=== PATIENT | female | born 1945 | race American Indian/Alaskan Native ===

== ENCOUNTER 2016-09-25 19:52 | Inpatient (IN) | payer MEDICARE ==
[2016-09-25] MEDS ORDERED: CATAPRES PO ONE ×2 (20:53→22:34)
[2016-09-25 20:54] LABS: Basophils % (Auto) 0.5 % (0.0-1.8); Eosinophils % (Auto) 1.9 % (0.0-4.3); Hemoglobin 13.3 gm/dl (10.1-14.3); Mean Corpuscular HGB Conc 32 % (30-34); Mean Corpuscular Hemoglobin 27 pg (28-32); Mean Corpuscular Volume 83 fl (79-97); Platelet Count 198 K/mm3 (140-440); Red Blood Count 4.93 M/mm3 (3.65-5.03); Red Cell Distribution Width 14.9 % (13.2-15.2); White Blood Count 8.3 K/mm3 (4.5-11.0)
--- NOTE | 2016-09-25 20:57 | Emergency Department Report ---
ED Dizziness HPI - General Chief Complaint: High BP Stated Complaint: HIGH BP Time Seen by Provider: 09/25/16 20:48 Source: patient Mode of arrival: Ambulatory Limitations: No Limitations - History of Present Illness Initial Comments: Patient stated that she is having dizziness that started yesterday she forget how her blood pressure medicine for the last 4 days since she went for vacation in [place]. Denies any focal weakness no numbness or tingling sensation of slight headache no bowel or bladder dysfunction Complaint: dizziness -: Gradual Timing: gradual onset - Related Data Home Medications Medication Instructions Recorded Confirmed Last Taken Unobtainable 09/25/16 09/25/16 Unknown Allergies Allergy/AdvReac Type Severity Reaction Status Date / Time No Known Allergies Allergy Verified 09/25/16 20:06 ED Review of Systems ROS: Stated complaint: HIGH BP Other details as noted in HPI Comment: All other systems reviewed and negative Constitutional: denies: chills, fever Eyes: denies: vision change Respiratory: denies: shortness of breath, SOB with exertion Cardiovascular: denies: chest pain, palpitations Gastrointestinal: denies: nausea, vomiting Musculoskeletal: denies: back pain Neurological: headache. denies: weakness, numbness, paresthesias, confusion ED Past Medical Hx - Past Medical History Previous Medical History?: Yes Hx Hypertension: Yes Additional medical history: Bladder Incontinence at night - Surgical History Past Surgical History?: No - Social History Smoking Status: Never Smoker Substance Use Type: None - Medications Home Medications: Home Medications Medication Instructions Recorded Confirmed Last Taken Type Unobtainable 09/25/16 09/25/16 Unknown History ED Physical Exam - General Limitations: No Limitations General appearance: alert - Head Head exam: Present: atraumatic, normocephalic, normal inspection - Eye Eye exam: Present: normal appearance, PERRL, EOMI Pupils: Present: normal accommodation - ENT ENT exam: Present: normal exam, normal orophraynx - Neck Neck exam: Present: normal inspection. Absent: tenderness, meningismus, full ROM - Respiratory Respiratory exam: Present: normal lung sounds bilaterally. Absent: wheezes, rales, decreased breath sounds - Cardiovascular Cardiovascular Exam: Present: regular rate, normal rhythm, normal heart sounds - GI/Abdominal GI/Abdominal exam: Present: soft. Absent: distended, tenderness, guarding, rebound - Back Exam Back exam: Absent: CVA tenderness (R), CVA tenderness (L) - Neurological Exam Neurological exam: Present: alert, oriented X3, CN II-XII intact - Skin Skin exam: Present: warm, intact ED Course Vital Signs 09/25/16 09/25/16 09/25/16 20:00 20:40 20:51 Temperature 98.5 F Pulse Rate 94 H 89 Respiratory 20 11 L Rate Blood Pressure 157/90 Blood Pressure 217/132 [Right] O2 Sat by Pulse 100 97 98 Oximetry 09/25/16 09/25/16 09/25/16 21:00 21:01 21:10 Temperature Pulse Rate 87 89 89 Respiratory 13 15 Rate Blood Pressure 164/98 189/107 164/98 Blood Pressure [Right] O2 Sat by Pulse 98 98 Oximetry 09/25/16 09/25/16 09/25/16 21:34 21:41 21:51 Temperature Pulse Rate 72 76 Respiratory 16 14 13 Rate Blood Pressure 164/98 164/98 177/102 Blood Pressure [Right] O2 Sat by Pulse 98 96 99 Oximetry 09/25/16 09/25/16 09/25/16 22:00 22:11 22:21 Temperature Pulse Rate 80 74 72 Respiratory 14 20 19 Rate Blood Pressure 166/92 164/98 180/87 Blood Pressure [Right] O2 Sat by Pulse 93 95 Oximetry 09/25/16 09/25/16 09/25/16 22:30 22:41 22:51 Temperature Pulse Rate 77 73 74 Respiratory 17 17 9 L Rate Blood Pressure 157/96 180/87 175/95 Blood Pressure [Right] O2 Sat by Pulse 98 95 94 Oximetry 09/25/16 09/25/16 09/25/16 23:00 23:11 23:21 Temperature Pulse Rate 72 71 67 Respiratory 19 16 13 Rate Blood Pressure 157/88 157/88 164/95 Blood Pressure [Right] O2 Sat by Pulse 96 97 Oximetry 09/25/16 09/25/16 09/25/16 23:30 23:41 23:51 Temperature Pulse Rate 109 H 83 40 L Respiratory 19 19 16 Rate Blood Pressure 154/90 154/90 134/81 Blood Pressure [Right] O2 Sat by Pulse 95 93 97 Oximetry - Reevaluation(s) Reevaluation #1: 09/26/16 00:24 Patient developed significant bradycardia with a low blood pressure 100/60. Patient is still denying any chest pain became diaphoretic and has one episode of vomiting. Reevaluation #2: 09/26/16 00:[address] Angy Regalado for admission ED Medical Decision Making - Lab Data Result diagrams: 09/25/16 20:32 09/25/16 20:32 Critical care attestation.: If time is entered above; I have spent that time in minutes in the direct care of this critically ill patient, excluding procedure time. ED Disposition Clinical Impression: Symptomatic bradycardia Disposition: DC- OP ADMIT IP TO THIS HOSP Is pt being admited?: Yes Does the pt Need Aspirin: No Condition: Stable
[2016-09-25 21:05] LABS: INR 0.95 (0.87-1.13)
[2016-09-25 21:06] LABS: Partial Thromboplastin Time 30.6 Sec. (24.2-36.6)
[2016-09-25 21:08] LABS: Anion Gap 19 mmol/L; BUN/Creatinine Ratio 11.81; Blood Urea Nitrogen 13 mg/dL (7-17); Calcium 9.5 mg/dL (8.4-10.2); Carbon Dioxide 23 mmol/L (22-30); Chloride 101.7 mmol/L (98-107); Glucose 116 mg/dL (65-100); Potassium 3.8 mmol/L (3.6-5.0); Sodium 140 mmol/L (137-145)
--- NOTE | 2016-09-25 21:57 | Cat Scan Report ---
FINAL REPORT EXAM: CT HEAD/BRAIN WO CON HISTORY: AMS TECHNIQUE: CT imaging is acquired through the brain without contrast. Transaxial reformations are provided. PRIORS: None. FINDINGS: Ventricles and CSF spaces are proportionately enlarged, consistent with parenchymal atrophy. Scattered deep and subcortical white matter hypodense foci are confluent in some areas and are compatible with microvascular angiopathy and prior left periventricular infarct. No acute intracranial hemorrhage or mass effect. Calvarium and superficial scalp are intact. Right sphenoid ethmoidal mucosal thickening and sinus wall thickening. Mastoid air cells are clear. Likely cerumen in the right external auditory canal. IMPRESSION: No acute intracranial abnormality. Consider MRI follow-up as warranted. There are chronic sequela of atrophy, remote probable infarct and microvascular angiopathy.
[2016-09-26] MEDS ORDERED: ZOFRAN ONE (00:04)
[2016-09-26] MEDS ORDERED: ZOFRAN IV ONE (00:05)
[2016-09-26] MEDS ORDERED: NACL 0.9% 500 ML 500 ML ONE (00:12)
[2016-09-26] MEDS ORDERED: NACL 0.9% 500 ML 500 ML IV ONE (00:13)
[2016-09-26] MEDS ORDERED: NACL 0.9% 1000 ML 1,000 ML IV ONE (00:25)
--- NOTE | 2016-09-26 01:45 | Admit Criteria Form ---
Admission Criteria Documentation: CARDIOLOGY GRG Clinical Indications for Admission to Inpatient Care ( Place 'X' for any and all applicable criteria): Hospital admission is needed for appropriate care of the patient because of ANY ONE of the following (1): [ ] I. Hemodynamic instability as indicated by ALL of the following (1)(2)(3) (4)(5) [ ]a) Vital signs or other findings not as expected for chronic patient condition or baseline [ ]b) Instability indicated by ANY ONE of the following: [ ]i) Hypotension [ ]ii) Symptomatic Tachycardia unresponsive to treatment ( e.g., analgesia, fluids, sedation as indicated) [ ]iii) Inadequate perfusion indicated by ANY ONE of the following: [ ] 1) Lactic acidosis (> 2 mmol/L) [ ] 2) New abnormal capillary refill (> 3 seconds) [ ] 3) Reduced urine output [ ] 4) New altered mental status [ ]iv) Orthostatic vital sign changes unresponsive to treatment (e.g., fluids) [ ]v) IV inotropic or vasopressor medication required to maintain adequate blood pressure or perfusion [ ] II. Severe heart failure as indicated by ANY ONE of the following(17)(18) [ ]a) Respiratory distress [ ]b) Hypotension [ ]c) Anasarca (refractory to outpatient therapy) [ ]d) Cardiac arrhythmias of immediate concern [ ]e) Myocardial ischemia [ X] III. Cardiac arrhythmias or findings of immediate concern indicated by ANY ONE of the following (19)(20): [ ] a) Heart rhythms that are inherently dangerous or unstable indicated by ANY ONE of the following (21)(22)(23): [ ] i) Resuscitated ventricular fibrillation or cardiac arrest [ ] ii) Ventricular escape rhythm [ ] iii) Sustained ventricular tachycardia (30 seconds or more of ventricular rhythm at greater than 100 beats per minute) [ ] iv) Nonsustained ventricular tachycardia and ANY ONE of the following: [ ] 1) Suspected cardiac ischemia as cause or consequence of ventricular tachycardia [ ] 2) In setting of acute myocarditis [ ] b) Unstable cardiac conduction defects indicated by ANY ONE of the following(23)(24)(25) [ ] i) Type II second-degree atrioventricular block [ ]ii) Third-degree atrioventricular block [ ]iii) New-onset left bundle branch block with suspected myocardial ischemia [ ]c) Any heart rhythm and ANY ONE of the following (21)(22)(26)(27) (28) [ ] i) Continuous long-term ECG monitoring needed (e.g., initiation of drug requiring monitoring for more than 24 hours) [ ] ii) Patient has automatic implanted cardioverter defibrillator that is repeatedly firing, malfunctioning, or in need of immediate adjustment of settings beyond the scope of ambulatory or observation care [X ]d) Heart rhythms of concern due to ANY ONE of the following: [ ] i) Hypotension [ ] ii) Respiratory distress [X ] iii) Association with other significant symptoms (e.g. , bradycardia with syncope or ongoing dizziness, supraventricular tachycardia with chest pain (14)(15)(17) [ ] IV. Monitoring for cardiac contusion beyond the scope of observation care needed [A](30)(31)(32) [ ] V. Surgical or device complication (e.g., valve replacement complication , pacemaker dysfunction) (35)(41)(44)(45)(46) [ ] . Inpatient palliative care needed. [B](49) Also use Inpatient Palliative Care Criteria [ ] VII. Nonbacterial thrombotic (marantic) endocarditis (36)(43)(47)(48) [ ] VIII. Cardiology condition, symptom, or finding for which emergency and observation care has failed or are not considered appropriate. [ ] IX. Acute valvular disease requiring inpatient as indicated by ANY ONE of the following (41) [ ]a) Acute valvular regurgitation (42) [ ]b) Noninfectious valvulitis (43) [ ]c) Obstructive valve thrombosis [ ]d) Paravalvular leak [ ]e) Other significant valvular disorder remaining after emergency or observation level of care (as appropriate) [ ]X. Pericardial disease requiring inpatient treatment as indicated by ANY ONE of the following (33)(34)(35)(36)(37) [ ]a) Suspected tamponade (38)(39)(40) [ ]b) Hemopericardium [ ]c) Other significant pericardial disorder remaining after emergency or observation level of care (as appropriate) [ ] XI. Cardiac ischemia beyond scope of emergency and observation care. [ ] XII. Hypertension requiring inpatient treatment as indicated by ANY ONE of the following (6)(7)(8) [ ]a) SBP greater than 220 mm Hg or DBP greater than 120 mmHg despite treatment [ ]b) SBP greater than 140 mm Hg or DBP greater than 100 mm Hg with evidence of acute end organ damage as indicated by ANY ONE of the following [ ] i) Altered mental status [ ] ii) Acute renal failure as indicated by new onset of ANY ONE of the following (9)(10)(11)(12)(13) [ ]1) 3-fold rise in serum creatinine from baseline [ ]2) Serum creatinine greater than 4 mg/dL ( 354 micromoles/L) with acute rise greater than 0.5 mg/dL (44.2 micromoles/L) [ ]3) Reduction of more than 75% in estimated glomerular filtration rate from baseline [ ]4) Estimated glomerular filtration rate less than 35 mL/min/1.73m2 (0.59 mL/sec/1.73m2) in child up to 18 years of age [ ]5) Cessation of urine output indicated by ALL of the following [ ]A. Adequate volume status [ ]B. Inadequate urine output as indicated by ANY ONE of the following [ ]a. Urine output less than 0.3 mL/kg/hr for 24 hours [ ]b. Anuria (urine output less than 0.1 mL/kg/hr) for 12 hours [ ] iii) Aortic dissection [ ] iv) Myocardial Ischemia [ ] v) Left ventricular heart failure [ ]vi) Retinal Hemorrhage [ ]vii) Other significant finding [ ]c) Hypertension in child requiring inpatient treatment as indicated by ALL of the following(14)(15)(16) [ ] i) Outpatient treatment not effective, not available, or not appropriate [ ]ii) SBP or DBP greater than 95th percentile for age [ ]iii) Evidence of acute end organ damage as indicated by ANY ONE of the following [ ]1) Altered mental status [ ]2) Acute renal failure as indicated by new onset of ANY ONE of the following(9)(10)(11)(12)(13) [ ]A. 3-fold rise in serum creatinine from baseline [ ]B. Serum creatinine greater than 4 mg/dL (354 micromoles/L) with acute rise greater than 0.5 mg/dL (44.2 micromoles/L) [ ]C. Reduction of more than 75% in estimated glomerular filtration rate from baseline [ ]D. Estimated glomerular filtration rate less than 35 mL/min/1.73m2 (0.59 mL/sec/1.73m2) in child up to 18 years of age [ ]E. Cessation of urine output indicated by ALL of the following [ ]a. Adequate volume status [ ]b. Inadequate urine output as indicated by ANY ONE of the following [ ]i) Urine output less than 0.3 mL/kg/hr for 24 hours [ ]ii) Anuria ( urine output less than 0.1 mL/kg/hr) for 12 hours [ ]3) Severe headache [ ]4) Visual disturbance [ ]5) Retinal hemorrhage [ ]6) Other significant finding [ ]XIII. Complications of transplanted heart indicated by ANY ONE of the following(61): [ ]a) Acute graft rejection requiring inpatient management (eg, intravenous immunosuppression)(62)(63) [ ]b) Acute graft heart failure indicated by ANY ONE of the following(64): [ ]i) Hemodynamic instability [ ]ii) Cardiac arrhythmias of immediate concern [ ]iii) Pulmonary edema that is very severe (eg, mechanical ventilation needed, imminent or likely, need for 100% oxygen to keep oxygen saturation above 90%) [ ]iv) Pulmonary edema that is persistent as indicated by ALL of the following: [ ]1) New need for oxygen therapy to keep oxygen saturation above 90% (or increased FiO2 need from baseline) [ ]2) Has not improved sufficiently with emergency department or observation care IV diuretics or other heart failure treatments[E] [ ]v) Altered mental status that is severe or persistent [ ]vi) Increased creatinine (new on laboratory test) with reduction of more than 50% in estimated glomerular filtration rate from baseline [ ]vii) Progressively (ongoing) rising creatinine (known from past laboratory test) with reduction of more than 25% in estimated glomerular filtration rate from baseline [ ]viii) Acute renal failure [ ]ix) Acute peripheral ischemia (eg, examination shows pulseless, cool, mottled, or cyanotic extremity) [ ]x) Pulmonary artery catheter monitoring needed [ ]xi) Other sign or symptom of heart failure requiring inpatient treatment (ie, too severe or not responsive to outpatient and observation care treatment) [ ]c) Infection requiring inpatient management (eg, Hemodynamic instability, need for intravenous antimicrobial treatment)(66)(67)(68)(69)(70) [ ]d) Cardiac allograft vasculopathy requiring inpatient management ( eg evidence of cardiac ischemia)(71) [ ]e) Other complication of transplanted heart (eg, stroke, severe pulmonary hypertension, severe valvular dysfunction) requiring inpatient management(72) The original [facility] [email or web address] content created by [facility] [employer] has been revised. The portions of the content which have been revised are identified through the use of italic text or in bold, and [facility] has neither reviewed nor approved the modified material. All other unmodified content is copyright [facility] [employer]. Please see references footnoted in the original [facility] [email or web address] edition 2016 Admission Criteria Met: Yes
[2016-09-26] MEDS ORDERED: TYLENOL PO PRN (01:56)
[2016-09-26] MEDS ORDERED: SODIUM CHLORIDE FLUSH SYRINGE 10 ML IV PRN (01:56)
[2016-09-26] MEDS ORDERED: ZOFRAN IV PRN (01:56)
[2016-09-26] MEDS ORDERED: MILK OF MAGNESIA PO PRN (01:56)
--- NOTE | 2016-09-26 02:06 | History and Physical Report ---
History of Present Illness Date of examination: 09/26/16 History of present illness: 71-year-old man with a history of hypertension who has not taken her antihypertensive in the last 4 days comes emergency room because her balance was off. Also complaining of a headache. Review of systems Constitutional: no fever, no chills, no weight loss Ears, eyes, nose, mouth and throat: no nasal congestion, no nasal discharge, no sinus pressure, no vision change, no red eye. Neck: No neck pain or rigidity. Cardiovascular: chest pain, no orthopnea, no palpitations, no leg swelling Respiratory: No shortness of breath, no cough, no congestion, no wheezing Gastrointestinal: abdominal pain, hematochezia, no nausea, no vomiting Genitourinary : no dysuria, frequency , no hematuria Musculoskeletal: no joint swelling or muscle ache Integumentary: no rash, no pruritis Neurological: no numbness Endocrine: no cold or heat intolerance, no polyuria or polydipsia Hematologic/Lymphatic: no easy bruising, no easy bleeding, no gland swelling Allergic/Immunologic: no urticaria, no angioedema. PAST MEDICAL HiSTORY: hypertension PAST SURGICAL HISTORY:ankle FAMILY HISTORY:Hyertention SOCIAL HISTORY: Social alcohol, no tobacco or drugs Medications and Allergies Allergies Allergy/AdvReac Type Severity Reaction Status Date / Time No Known Allergies Allergy Verified 09/25/16 20:06 Home Medications Medication Instructions Recorded Confirmed Last Taken Type Lisinopril [Zestril] 40 mg PO QDAY 09/26/16 09/26/16 09/25/16 History Active Meds: Active Medications Sodium Chloride (Nacl 0.9% 1000 Ml) 1,000 mls @ 100 mls/hr IV BOLUS ONE Stop: 09/26/16 10:24 Last Admin: 09/26/16 00:48 Dose: 100 mls/hr Exam - Physical Exam Narrative exam: Gen. appearance: Patient lying in bed, no apparent distress HEENT: Normocephalic, atraumatic, pupils equally round and reactive to light, extraocular movement intact, and no sclericterus,. No JVD or thyromegaly or nodule,neck supple, no carotid bruit ,mucous membranes moist, no exudate or erythema Heart: S1, S2, regular rate and rhythm Lungs: Clear to auscultation bilaterally, breathing comfortable Abdomen: Positive bowel sounds, nontender, nondistended, no organomegaly Extremity: No edema, cyanosis, clubbing Skin: No rash, nodules, warm, dry Neuro: Oriented 3, cranial nerves II-12 intact, speech is fluent, left side weakness 4/5 - Constitutional Vitals: Temp Pulse Resp BP Pulse Ox 98.5 F 63 20 159/79 93 09/25/16 20:00 09/26/16 00:30 09/26/16 00:30 09/26/16 00:30 09/26/16 00:30 Results - Labs CBC & Chem 7: 09/25/16 20:32 09/25/16 20:32 Labs: Abnormal lab results 09/25/16 09/25/16 Range/Units 20:32 20:32 MCH 27 L (28-32) pg Lymph % (Auto) 44.2 H (13.4-35.0) % Glucose 116 H (65-100) mg/dL - Imaging and Cardiology EKG: image reviewed CT Scan - head: report reviewed Assessment and Plan Assessment CVA Hypertension uncontrolled Plan Admit to medicine Obtain MRI, carotid Doppler, echo Do neurochecks, swallow screen, consult neurology Start aspirin, statin, IV hydralazine for blood pressure control Consult physical, occupational therapy Stat DVT prophylaxis
[2016-09-26 06:21] LABS: Creatine Kinase MB 3.5 ng/mL (0.0-4.0)
[2016-09-26 06:24] LABS: Creatine Kinase 365 units/L (30-135)
[2016-09-26] MEDS ORDERED: LOVENOX SUB-Q SCH (10:00)
--- NOTE | 2016-09-26 10:38 | Progress Note ---
Assessment and Plan Assessment and plan: Acute CVA/TIA. CT scan of the head shows no acute findings. We will follow-up MRI, carotid Doppler and echocardiogram. Continue neurochecks. PT/OT/ST. Neurology consultation pending. Continue aspirin, statin Accelerated hypertension. Patient will have permissive hypertension secondary to above. However, blood pressure seemed to be somewhat elevated this morning. Continue IV hydralazine as needed. Restart Zestril today. History Interval history: No new issues overnight. Hospitalist Physical - Constitutional Vitals: Temp Pulse Resp BP Pulse Ox 97.4 F L 58 L 18 189/88 97 09/26/16 07:00 09/26/16 07:00 09/26/16 07:00 09/26/16 07:00 09/26/16 07:00 General appearance: Present: no acute distress, well-nourished - EENT Eyes: Present: PERRL, EOM intact ENT: hearing intact, clear oral mucosa, dentition normal - Neck Neck: Present: supple, normal ROM - Respiratory Respiratory effort: normal Respiratory: bilateral: CTA - Cardiovascular Rhythm: regular Heart Sounds: Present: S1 & S2. Absent: gallop, rub - Extremities Extremities: no ischemia, No edema, Full ROM - Abdominal General gastrointestinal: soft, non-tender, non-distended, normal bowel sounds - Integumentary Integumentary: Present: clear, warm, dry - Neurologic Neurologic: CNII-XII intact, moves all extremities Results - Labs CBC & Chem 7: 09/25/16 20:32 09/25/16 20:32 Labs: Laboratory Last Values WBC 8.3 K/mm3 (4.5-11.0) 09/25/16 20:32 RBC 4.93 M/mm3 (3.65-5.03) 09/25/16 20:32 Hgb 13.3 gm/dl (10.1-14.3) 09/25/16 20:32 Hct 41.0 % (30.3-42.9) 09/25/16 20:32 MCV 83 fl (79-97) 09/25/16 20:32 MCH 27 pg (28-32) L 09/25/16 20:32 MCHC 32 % (30-34) 09/25/16 20:32 RDW 14.9 % (13.2-15.2) 09/25/16 20:32 Plt Count 198 K/mm3 (140-440) 09/25/16 20:32 Lymph % (Auto) 44.2 % (13.4-35.0) H 09/25/16 20:32 Mclean % (Auto) 5.9 % (0.0-7.3) 09/25/16 20:32 Eos % (Auto) 1.9 % (0.0-4.3) 09/25/16 20: Baso % (Auto) 0.5 % (0.0-1.8) 09/25/16 20: Lymph # 3.7 K/mm3 (1.2-5.4) 09/25/16 20: Mclean # 0.5 K/mm3 (0.0-0.8) 09/25/16 20: Eos # 0.2 K/mm3 (0.0-0.4) 09/25/16 20: Baso # 0.0 K/mm3 (0.0-0.1) 09/25/16 20:32 Seg Neutrophils % 47.5 % (40.0-70.0) 09/25/16 20: Seg Neutrophils # 3.9 K/mm3 (1.8-7.7) 09/25/16 20:32 PT 13.1 Sec. (12.2-14.9) 09/25/16 20:32 INR 0.95 (0.87-1.13) 09/25/16 20:32 APTT 30.6 Sec. (24.2-36.6) 09/25/16 20:32 Sodium 140 mmol/L (137-145) 09/25/16 20:32 Potassium 3.8 mmol/L (3.6-5.0) 09/25/16 20:32 Chloride 101.7 mmol/L (98-107) 09/25/16 20:32 Carbon Dioxide 23 mmol/L (22-30) 09/25/16 20:32 Anion Gap 19 mmol/L 09/25/16 20:32 BUN 13 mg/dL (7-17) 09/25/16 20:32 Creatinine 1.1 mg/dL (0.7-1.2) 09/25/16 20:32 Estimated GFR 59 ml/min 09/25/16 20:32 BUN/Creatinine Ratio 11.81 % 09/25/16 20:32 Glucose 116 mg/dL (65-100) H 09/25/16 20:32 Calcium 9.5 mg/dL (8.4-10.2) 09/25/16 20:32 Total Creatine Kinase 365 units/L (30-135) H 09/26/16 05:42 CK-MB (CK-2) 3.5 ng/mL (0.0-4.0) 09/26/16 05:42 CK-MB (CK-2) Rel Index 0.9 (0-4) 09/26/16 05:42 Troponin T < 0.010 ng/mL (0.00-0.029) 09/26/16 05:42
[2016-09-26] MEDS: ASPIRIN PO SCH (11:33)
[2016-09-26] MEDS: LOVENOX SUB-Q SCH (11:34)
[2016-09-26] MEDS: ZESTRIL PO SCH (11:48)
[2016-09-26 11:56] LABS: Creatine Kinase MB 3.7 ng/mL (0.0-4.0)
[2016-09-26 11:57] LABS: Creatine Kinase 344 units/L (30-135)
--- NOTE | 2016-09-26 12:55 | Event Note ---
Date: 09/26/16 I attempted to see this patient between my scheduled coverage time of 8 AM-12 PM but they were not present in the floor room. I will return to staff in consultation 09/27
--- NOTE | 2016-09-26 16:06 | Magnetic Resonance Report ---
MRI BRAIN WITHOUT CONTRAST INDICATION: Stroke. COMPARISON: Head CT from last night. FINDINGS: Noncontrast multiplanar and multisequence MRI of the brain demonstrates normal ventricles and sulci. Extensive periventricular white matter FLAIR and T2 weighted hyperintensities represent small vessel ischemic disease. Few lacunar infarcts, the largest approximately 1 cm left periventricular with mild ex-vacuo dilatation of the left frontal horn as on axial image 17. Approximately 1 cm acute infarct in alessandro on the right noted with few pontine old ischemic changes as well. No acute, hemorrhage, mass effect or midline shift. No abnormal extra-axial masses or fluid collections. Normal major intracranial vascular flow voids. Normal posterior fossa structures with symmetric seventh and eighth nerve complexes. Symmetric, grossly unremarkable eye globes. Chronic right sphenoid sinus mucoperiosteal thickening with possible postsurgical changes or extension into opacified right posterior ethmoid air cells. Additionally, mild bilateral ethmoid and slight maxillary sinusitis also seen. Somewhat hypoplastic left sphenoid and bilateral frontal sinuses. Rightward nasal septal bowing. Clear mastoid air cells. Normal midline structures without evidence of Chiari malformation. CONCLUSION: 1. Approximately 1 cm acute pontine infarct on the right, as described. 2. Various other findings, including age appropriate atrophy, extensive microvascular changes, few old lacunar infarcts and sinus disease including chronic right sphenoid sinusitis, amongst others, as detailed above. Thank you for the opportunity to participate in this patient's care.
[2016-09-26] MEDS ORDERED: NACL ONE (16:40)
--- NOTE | 2016-09-26 16:59 | Consultation ---
History of Present Illness - Reason for Consult Consult date: 09/26/16 carotid artery stenosis - History of Present Illness This patient presented with uncontrolled hypertension. She denies history of stroke, TIA, amaurosis. Patient has never had a previous carotid artery workup. Patient had a CT of the head that shows no acute event. Her MRI showed a acute pontine infarct but no lesions in either MCA distribution. Past History Past Medical History: hypertension Past Surgical History: Other (foot surgery in distant past) Family history: stroke Medications and Allergies Allergies Allergy/AdvReac Type Severity Reaction Status Date / Time No Known Allergies Allergy Verified 09/25/16 20:06 Home Medications Medication Instructions Recorded Confirmed Last Taken Type Lisinopril [Zestril] 40 mg PO QDAY 09/26/16 09/26/16 09/25/16 History Active Meds: Active Medications Acetaminophen (Tylenol) 650 mg PO Q4H PRN PRN Reason: Pain, Mild (1-3) Aspirin (Aspirin) 325 mg PO QDAY [facility] Last Admin: 09/26/16 11:33 Dose: 325 mg Bisacodyl (Dulcolax) 10 mg [place] QDAY PRN PRN Reason: Constipation Enoxaparin Sodium (Lovenox) 40 mg SUB-Q QDAY@1000 [facility] Last Admin: 09/26/16 11:34 Dose: 40 mg Hydralazine HCl (Apresoline) 5 mg IV Q6H PRN PRN Reason: Keep SBP between 160-185 mm Hg Lisinopril (Zestril) 40 mg PO QDAY [facility] Last Admin: 09/26/16 11:48 Dose: 40 mg Magnesium Hydroxide (Milk Of Magnesia) 30 ml PO Q4H PRN PRN Reason: Constipation Last Admin: 09/26/16 11:52 Dose: 30 ml Ondansetron HCl (Zofran) 4 mg IV Q8H PRN PRN Reason: N/V unrelieved by Reglan Simvastatin (Zocor) 20 mg PO QHS [facility] Sodium Chloride (Sodium Chloride Flush Syringe 10 Ml) 10 ml IV PRN PRN PRN Reason: LINE FLUSH Review of Systems All systems: negative Exam - Constitutional Vitals: Temp Pulse Resp BP Pulse Ox 97.7 F 66 18 188/88 98 09/26/16 11:30 09/26/16 11:30 09/26/16 11:30 09/26/16 11:48 09/26/16 11:30 General appearance: Present: no acute distress, well-nourished - EENT Eyes: Present: PERRL, EOM intact ENT: hearing intact, dentition normal - Neck Neck: Absent: enlarged thyroid, masses or JVD, carotid bruits - Respiratory Respiratory effort: normal Respiratory: bilateral: CTA - Cardiovascular Rhythm: regular - Extremities Extremities: no ischemia - Abdominal General gastrointestinal: Present: deferred Female genitourinary: Present: deferred - Rectal Rectal Exam: deferred - Integumentary Integumentary: Present: clear - Musculoskeletal Musculoskeletal: strength equal bilaterally - Psychiatric Psychiatric: appropriate mood/affect, intact judgment & insight, memory intact, cooperative - Neurologic Neurologic: CNII-XII intact, no focal deficits, moves all extremities, other ( sensory and motor exams are normal and equal bilaterally) Results - Labs CBC & Chem 7: 09/25/16 20:32 09/25/16 20:32 Labs: Abnormal lab results 09/26/16 09/26/16 Range/Units 05:42 10:53 Total Creatine Kinase 365 H 344 H (30-135) units/L - Imaging and Cardiology CT Scan - head: report reviewed, image reviewed MRI - head: report reviewed (No evidence of acute events in either MCA distribution) Venous US: report reviewed, image reviewed (carotid duplex 50-79% right ICA stenosis, 80-99% left ICA stenosis.) Assessment and Plan High grade left ICA stenosis. Moderate to high-grade right ICA stenosis. Both lesions appear to be asymptomatic. Plan: Patient will undergo a CTA of the neck. We'll decide on further therapy based on the CAT scan. Thank you for the consult.
[2016-09-26] MEDS: APRESOLINE IV PRN (17:54)
--- NOTE | 2016-09-26 18:29 | Cat Scan Report ---
FINAL REPORT PROCEDURE: CT ANGIO NECK TECHNIQUE: Computerized tomographic angiography of the neck was performed after the IV injection of iodinated nonionic contrast including image processing. The image data was postprocessed using 2-dimensional multiplanar reformatted (MPR) and 3-dimensional (MIP and/or volume rendered) techniques. HISTORY: high grade left carotid artery stenosis COMPARISON: No prior studies are available for comparison. Note: Assessment of carotid artery stenosis is based on measurement of the distal internal carotid artery diameter as the denominator for stenosis calculations and the [place] Symptomatic Carotid Endarterectomy Trial (NASCET) stenosis criteria . CPT 3100F FINDINGS: Sinuses: There is moderate opacification of the bilateral ethmoid and right sphenoid sinuses.. Non vascular cervical structures: No significant abnormality . Aortic arch: The aortic arch has a normal appearance. Minimal atherosclerotic plaque formation is identified.. Right carotid artery: The right carotid artery opacifies without stenosis or occlusion.. Left carotid artery: There is minimal soft plaque formation identified in the left common carotid artery. This causes less than 50 percent stenosis of this vessel. Left carotid bulb appears normal. There is a significant angulation of the left internal carotid artery just past the carotid bulb. The artery angles medially to a point just beneath the upper airway and anterior to the mid C2 vertebral body. At this region there is a complete loss of contrast enhancement. The artery distally is opacified and has normal caliber up through the cavernous and petrous portions of the artery. The abrupt angulation in the mid left internal carotid artery causes at least high-grade stenosis in this region. There may be retrograde filling from the posterior circulation which appears intact on this study.. Vertebral arteries: Both vertebral arteries opacify without occlusion or stenosis.. IMPRESSION: There is high-grade stenosis, almost occlusion of the left mid internal carotid artery where there is an abrupt medial angulation of the artery as discussed above. Further evaluation with traditional angiography may be helpful in determining whether there is some retrograde filling of the upper left internal carotid artery. The upper left internal carotid artery including the cavernous and petrous portions of the artery opacified without stenosis or occlusion. Soft plaque formation identified in the left common carotid artery near its origin causing less than 50 percent stenosis of the vessel. The right carotid artery is patent. Both vertebral arteries opacify without occlusion or stenosis.
[2016-09-26] MEDS ORDERED: ZOCOR PO SCH (22:00)
[2016-09-27] MEDS: APRESOLINE IV PRN ×3 (06:09→14:15)
[2016-09-27] MEDS: DULCOLAX PR PRN (09:10)
[2016-09-27] MEDS: ASPIRIN PO SCH (09:25)
[2016-09-27] MEDS: LOVENOX SUB-Q SCH (09:25)
[2016-09-27] MEDS: ZESTRIL PO SCH (09:26)
--- NOTE | 2016-09-27 10:58 | Progress Note ---
Assessment and Plan 71-year-old female with acute pontine infarct who was found to have an asymptomatic left internal carotid essentially 99% stenosis on CT scan. Right internal carotid has less than 50% stenosis on CT scan. Given severity of left internal carotid artery narrowing, we recommend carotid endarterectomy for this asymptomatic lesion. This was discussed with the patient. The timing of the procedure is more complicated given the recent infarct. Recommend neurology consult in order to determine timing for endarterectomy of left asymptomatic 99% internal carotid artery in the presence of an acute infarct in the pontine region. Patient will need cardiac clearance. Recommend cardiology consult for clearance. Subjective Date of service: 09/27/16 Principal diagnosis: CVA Interval history: Patient feels good, still complains of weakness of her lower extremities. Can move arms without issue. Discussed findings on CT with patient. Objective - Constitutional Vitals: Vital Signs - 12hr 09/27/16 09/27/16 09/27/16 00:47 04:46 08:55 Temperature 98.8 F 98.7 F 98.9 F Pulse Rate [ 71 63 82 Right Radial] Respiratory 21 22 20 Rate Blood Pressure Blood Pressure 158/74 167/72 197/93 [Right Radial Artery] O2 Sat by Pulse 97 95 94 Oximetry 09/27/16 09:26 Temperature Pulse Rate [ Right Radial] Respiratory Rate Blood Pressure 193/90 Blood Pressure [Right Radial Artery] O2 Sat by Pulse Oximetry General appearance: Present: no acute distress - EENT Eyes: EOM intact ENT: hearing intact - Respiratory Respiratory effort: normal Extremities: normal temperature, normal color - Labs CBC & Chem 7: 09/25/16 20:32 09/25/16 20:32 Labs: Abnormal lab results 09/26/16 09/27/16 Range/Units 10:53 06:31 Total Creatine Kinase 344 H (30-135) units/L Cholesterol 284 H (50-199) mg/dL LDL Cholesterol Direct 203 H (50-130) mg/dL - Imaging and cardiology CT Scan - head: report reviewed, image reviewed
--- NOTE | 2016-09-27 11:44 | Progress Note ---
Assessment and Plan Assessment and plan: Acute CVA. Patient with acute pontine infarct. CT scan of the head shows no acute findings. However, MRI reveals 1 cm acute right pontine Echocardiogram revealed mild concentric left ventricular hypertrophy with an EF of 55%. Left ventricular diastolic filling abnormalities consistent with impaired relaxation. Neurology consultation pending. Continue neurochecks. PT/OT/ST. Left critical internal carotid stenosis. CT scan reveals essentially 99% stenosis. Vascular surgery following. Cardiology consultation for cardiac clearance. Accelerated hypertension. Patient will have permissive hypertension secondary to above. However, blood pressure seemed to be somewhat elevated this morning. Continue IV hydralazine as needed. Restart Zestril today. History Interval history: No new issues overnight. Hospitalist Physical - Constitutional Vitals: Temp Pulse Resp BP Pulse Ox 98.9 F 82 20 193/90 94 09/27/16 08:55 09/27/16 08:55 09/27/16 08:55 09/27/16 09:26 09/27/16 08:55 General appearance: Present: no acute distress Results - Labs CBC & Chem 7: 09/25/16 20:32 09/25/16 20:32 Labs: Laboratory Last Values WBC 8.3 K/mm3 (4.5-11.0) 09/25/16 20:32 RBC 4.93 M/mm3 (3.65-5.03) 09/25/16 20:32 Hgb 13.3 gm/dl (10.1-14.3) 09/25/16 20:32 Hct 41.0 % (30.3-42.9) 09/25/16 20:32 MCV 83 fl (79-97) 09/25/16 20:32 MCH 27 pg (28-32) L 09/25/16 20:32 MCHC 32 % (30-34) 09/25/16 20:32 RDW 14.9 % (13.2-15.2) 09/25/16 20:32 Plt Count 198 K/mm3 (140-440) 09/25/16 20:32 Lymph % (Auto) 44.2 % (13.4-35.0) H 09/25/16 20:32 Mccracken % (Auto) 5.9 % (0.0-7.3) 09/25/16 20:32 Eos % (Auto) 1.9 % (0.0-4.3) 09/25/16 20:32 Baso % (Auto) 0.5 % (0.0-1.8) 09/25/16 20:32 Lymph # 3.7 K/mm3 (1.2-5.4) 09/25/16 20:32 Mccracken # 0.5 K/mm3 (0.0-0.8) 09/25/16 20: Eos # 0.2 K/mm3 (0.0-0.4) 09/25/16 20: Baso # 0.0 K/mm3 (0.0-0.1) 09/25/16 20:32 Seg Neutrophils % 47.5 % (40.0-70.0) 09/25/16 20: Seg Neutrophils # 3.9 K/mm3 (1.8-7.7) 09/25/16 20:32 PT 13.1 Sec. (12.2-14.9) 09/25/16 20:32 INR 0.95 (0.87-1.13) 09/25/16 20:32 APTT 30.6 Sec. (24.2-36.6) 09/25/16 20:32 Sodium 140 mmol/L (137-145) 09/25/16 20:32 Potassium 3.8 mmol/L (3.6-5.0) 09/25/16 20:32 Chloride 101.7 mmol/L (98-107) 09/25/16 20:32 Carbon Dioxide 23 mmol/L (22-30) 09/25/16 20:32 Anion Gap 19 mmol/L 09/25/16 20:32 BUN 13 mg/dL (7-17) 09/25/16 20:32 Creatinine 1.1 mg/dL (0.7-1.2) 09/25/16 20:32 Estimated GFR 59 ml/min 09/25/16 20:32 BUN/Creatinine Ratio 11.81 % 09/25/16 20:32 Glucose 116 mg/dL (65-100) H 09/25/16 20:32 Calcium 9.5 mg/dL (8.4-10.2) 09/25/16 20:32 Total Creatine Kinase 344 units/L (30-135) H 09/26/16 10:53 CK-MB (CK-2) 3.7 ng/mL (0.0-4.0) 09/26/16 10:53 CK-MB (CK-2) Rel Index 1.0 (0-4) 09/26/16 10:53 Troponin T < 0.010 ng/mL (0.00-0.029) 09/26/16 10:53 Triglycerides 115 mg/dL (2-149) 09/27/16 06:31 Cholesterol 284 mg/dL (50-199) H 09/27/16 06:31 LDL Cholesterol Direct 203 mg/dL (50-130) H 09/27/16 06:31 HDL Cholesterol 58 mg/dL (40-59) 09/27/16 06:31 Cholesterol/HDL Ratio 4.89 % 09/27/16 06:31
--- NOTE | 2016-09-27 13:04 | Consultation ---
History of Present Illness Consult date: 09/27/16 Requesting physician: CATALINA DONALDSON Reason for Consult: stroke Chief complaint: L side weakness History of present illness: 71 YO F Hx HTN p/w L sided weakness. Onset 09/23 AM unclear specific time. Sx are constant but have improved. There are no clear aggravating, relieving or temporal factors. Severity was enough to cause inability to effectively use the left side. Past History Past Medical History: hypertension Past Surgical History: Other (foot surgery in distant past) Social history: lives with family. denies: smoking, alcohol abuse, prescription drug abuse Family history: stroke Medications and Allergies Allergies Allergy/AdvReac Type Severity Reaction Status Date / Time No Known Allergies Allergy Verified 09/25/16 20:06 Home Medications Medication Instructions Recorded Confirmed Last Taken Type Lisinopril [Zestril] 40 mg PO QDAY 09/26/16 09/26/16 09/25/16 History Active Meds: Active Medications Acetaminophen (Tylenol) 650 mg PO Q4H PRN PRN Reason: Pain, Mild (1-3) Aspirin (Aspirin) 325 mg PO QDAY [facility] Last Admin: 09/27/16 09:25 Dose: 325 mg Bisacodyl (Dulcolax) 10 mg [facility] QDAY PRN PRN Reason: Constipation Last Admin: 09/27/16 09:10 Dose: 10 mg Enoxaparin Sodium (Lovenox) 40 mg SUB-Q QDAY@1000 [facility] Last Admin: 09/27/16 09:25 Dose: 40 mg Hydralazine HCl (Apresoline) 5 mg IV Q6H PRN PRN Reason: Keep SBP between 160-185 mm Hg Last Admin: 09/27/16 09:26 Dose: 5 mg Lisinopril (Zestril) 40 mg PO QDAY [facility] Last Admin: 09/27/16 09:26 Dose: 40 mg Magnesium Hydroxide (Milk Of Magnesia) 30 ml PO Q4H PRN PRN Reason: Constipation Last Admin: 09/26/16 11:52 Dose: 30 ml Ondansetron HCl (Zofran) 4 mg IV Q8H PRN PRN Reason: N/V unrelieved by Reglan Last Admin: 09/26/16 19:58 Dose: 4 mg Simvastatin (Zocor) 20 mg PO QHS [facility] Last Admin: 09/26/16 21:57 Dose: 20 mg Sodium Chloride (Sodium Chloride Flush Syringe 10 Ml) 10 ml IV PRN PRN PRN Reason: LINE FLUSH Review of Systems All systems: negative Neurological: weakness (on L), change in speech (slurred midlly), gait dysfunction, motor disturbance, no transient paralysis, no paralysis, no parathesias, no numbness, no tingling, no seizures, no syncope, no tremors, no migraines, no convulsions, no confusion, no sensory deficit, no double vision Physical Examination - Vital Signs Vital Signs: Vital Signs Temp Pulse Resp BP Pulse Ox 98.5 F 94 H 20 217/132 100 09/25/16 20:00 09/25/16 20:00 09/25/16 20:00 09/25/16 20:00 09/25/16 20:00 - Constitutional General appearance: comfortable - EENT EENT: Present: ATNC, PERRL, mucous membranes moist, hearing intact, vision intact - Respiratory Respiratory: Present: chest non-tender, normal breath sounds, no respiratory distress - Cardiovascular Cardiovascular: Present: regular rate Extremities: Present: no peripheral edema bilatateraly, no clubbing, cyanosis, no inflammation, no ischemia or petechiae - Gastrointestinal Gastrointestinal: Present: normoactive bowel sounds, soft, non-distended - Integumentary Integumentary: Present: normal - Neurologic Cranial nerve examination: PERRL, EOMI, VFF, V1/V2/V3 grossly intact, tongue midline, intact, intact shoulder shrug, intact cough reflex, Intact Vestibulo- ocular r, intact corneal reflex, facial droop (mild on L) Speech examination: other (slight slurred) Sensorimotor examination: pronator drift (on L), hemiparesis (faint fine motor on L) Motor examination - right side: 5/5: biceps, triceps, wrist flexion, wrist extension, undercollar maker, hip flexors, knee extensors, dorsiflexion, toe extension (EHL) , plantarflexion Motor examination - left side: 4/5: biceps, triceps, wrist flexion, wrist extension, undercollar maker, hip flexors, knee extensors, dorsiflexion, toe extension (EHL) , plantarflexion Detailed sensory examination: intact, light touch, temperature Reflex and gait examination: Babinski's sign (on L) Reflexes: 1+: ankle, 2+: bicep, knee, tricep - Musculoskeletal Musculoskeletal: Present: no fluid collection, no pain, normal range of motion - Psychiatric Psychiatric: Present: mood/affect appropriate, cooperative Results - Laboratory Findings CBC and BMP: 09/25/16 20:32 09/25/16 20:32 Abnormal Lab Findings: Abnormal Labs 09/26/16 09/26/16 09/27/16 05:42 10:53 06:31 Total Creatine Kinase 365 H 344 H Cholesterol 284 H LDL Cholesterol Direct 203 H Assessment and Plan 71 YO F Hx HTN p/w pure motor stroke confirmed on MRI as acute lacunar 1 cm R pontine infarct. LDL 203. TTE neg. CTA H/N reveals asymptomatic L ICA 99% and R ICA < 50% stenosis. Plan and Recommendation: 1. No indication for pharmacologic thrombolysis with IV tPA or mechanical thrombectomy due to last known normal > 6 hrs from presentation. Current NIHSS 2. 2. Telemetry bed w/ Q4 hour neuro checks 3. Can lower MAPs by 10-15% daily to reach goal SBP 120-160 4. Secondary stroke prevention: ASA 325mg Daily x 1 then 81mg QDay & upgrade to full dose statin therapy (Crestor 20mg or 40mg OR Lipitor 40mg or 80mg Daily OR Zocor 40mg QDay) for goal LDL < 70. 5. Would wait at least 2-3 weeks for any planned operative therapy for L ICA stenosis to minimize risk of hemorrhagic conversion 6. F/E/N: isotonic IVF prn, prn replete, bedside speech/swallow eval prior to PO intake. 7. DVT Prophylaxis 8. Stroke education, PT/OT/Speech Therapy consults, CM evaluation 9. For any changes in neurologic status, pls obtain STAT CTH w/o contrast and call neurology 10. If pt remains clinically stable, no neurologic contraindication to discharge w/ outpt neuro follow up.
--- NOTE | 2016-09-27 14:13 | Consultation ---
History of Present Illness Consult date: 09/27/16 Requesting physician: CATALINA DONALDSON Consult reason: pre op evaluation History of present illness: The pt is a 71 YO female with a past medical history significant for HTN and HLP. She is previously unknown to our practice. She presented on 09/25 with c/o left-sided weakness and elevated BP. She reports that her left-sided weakness began on the morning of 09/23. She recently went on vacation to [place] with her family and forgot to bring her BP medications. She was without BP medications for approximately 1 week [employer]. On 09/23, when she noted left-sided weakness, her daughter took her to local pharmacy to check her BP and noted her BP to be in 200s systolic. She was advised per pharmacist to report to the ED for further eval/management. She denies any chest pain, palpitations, SOB, n/v, diaphoresis , dizziness, or syncope. Following admission, she was diagnosed with CVA (pure motor stroke confirmed on MRI as acute lacunar 1 cm R pontine infarct) and left ICA 99% stenosis. Cardiology has been consulted per vascular team's request for pre-operative cardiac evaluation for possible CEA. Echo done 09/26 showed EF 55- 60%, mild LVH, impaired relaxation, mild TR, no intracardiac shunting noted. Past History Past Medical History: hypertension, hyperlipidemia Past Surgical History: hysterectomy, Other (foot surgery in distant past) Social history: lives with family. denies: smoking, alcohol abuse, prescription drug abuse Family history: stroke Medications and Allergies Allergies Allergy/AdvReac Type Severity Reaction Status Date / Time No Known Allergies Allergy Verified 09/25/16 20:06 Home Medications Medication Instructions Recorded Confirmed Last Taken Type Lisinopril [Zestril] 40 mg PO QDAY 09/26/16 09/26/16 09/25/16 History Active Meds: Active Medications Acetaminophen (Tylenol) 650 mg PO Q4H PRN PRN Reason: Pain, Mild (1-3) Aspirin (Aspirin) 325 mg PO QDAY [facility] Last Admin: 09/27/16 09:25 Dose: 325 mg Bisacodyl (Dulcolax) 10 mg [place] QDAY PRN PRN Reason: Constipation Last Admin: 09/27/16 09:10 Dose: 10 mg Enoxaparin Sodium (Lovenox) 40 mg SUB-Q QDAY@1000 [facility] Last Admin: 09/27/16 09:25 Dose: 40 mg Hydralazine HCl (Apresoline) 5 mg IV Q6H PRN PRN Reason: Keep SBP between 160-185 mm Hg Last Admin: 09/27/16 09:26 Dose: 5 mg Labetalol HCl (Normodyne) 200 mg PO BID [facility] Lisinopril (Zestril) 40 mg PO QDAY [facility] Last Admin: 09/27/16 09:26 Dose: 40 mg Magnesium Hydroxide (Milk Of Magnesia) 30 ml PO Q4H PRN PRN Reason: Constipation Last Admin: 09/26/16 11:52 Dose: 30 ml Ondansetron HCl (Zofran) 4 mg IV Q8H PRN PRN Reason: N/V unrelieved by Luis Last Admin: 09/26/16 19:58 Dose: 4 mg Simvastatin (Zocor) 20 mg PO QHS [facility] Last Admin: 09/26/16 21:57 Dose: 20 mg Sodium Chloride (Sodium Chloride Flush Syringe 10 Ml) 10 ml IV PRN PRN PRN Reason: LINE FLUSH Review of Systems Constitutional: no weight loss, no weight gain, no fever, no chills, no sweats Ears, nose, mouth and throat: no ear pain, no nose pain, no sinus pressure, no sinus pain Cardiovascular: high blood pressure, no chest pain, no orthopnea, no palpitations, no rapid/irregular heart beat, no edema, no syncope, no lightheadedness, no shortness of breath, no dyspnea on exertion, no paroxysmal nocturnal dyspnea, no leg edema, no decreased exercise tolerance Respiratory: no cough, no shortness of breath, no dyspnea on exertion, no congestion, no wheezing, no pain on inspiration Gastrointestinal: no abdominal pain, no nausea, no vomiting, no diarrhea, no constipation, no change in bowel habits Genitourinary Female: no pelvic pain, no flank pain, no dysuria, no urinary frequency, no urgency Musculoskeletal: muscle weakness (left-sided), no neck stiffness, no neck pain, no shooting arm pain, no arm numbness/tingling, no low back pain, no shooting leg pain, no leg numbness/tingling, no redness of joints Integumentary: no rash, no pruritis, no redness, no sores, no wounds Neurological: weakness (left-sided), no head injury, no paralysis, no parathesias, no numbness, no tingling, no seizures, no syncope, no tremors, no headaches, no change in speech, no change in mentation, no confusion Psychiatric: no anxiety Endocrine: no cold intolerance, no heat intolerance Hematologic/Lymphatic: no easy bruising, no easy bleeding, no lymphadenopathy Allergic/Immunologic: no urticaria, no wheezing, no persistent infections Physical Examination Vital Signs Temp Pulse Resp BP Pulse Ox 98.5 F 94 H 20 217/132 100 09/25/16 20:00 09/25/16 20:00 09/25/16 20:00 09/25/16 20:00 09/25/16 20:00 General appearance: no acute distress HEENT: Positive: PERRL, Normocephaly, Mucus Membranes Moist Neck: Positive: neck supple, trachea midline, Bruit Cardiac: Positive: Reg Rate and Rhythm, S1/S2, Systolic Murmur Lungs: Positive: clear to auscultation Neuro: Positive: Grossly Intact, Weakness (left-sided ) Abdomen: Positive: Unremarkable, Soft, Active Bowel Sounds. Negative: Tender Skin: Positive: Clear. Negative: Rash, Wound Musculoskeletal: No Fluid Collection, No Pain, Normal Range of Motion Extremities: Absent: edema Results 09/25/16 20:32 09/25/16 20:32 Lipids 09/27/16 Range/Units 06:31 Triglycerides 115 (2-149) mg/dL Cholesterol 284 H (50-199) mg/dL HDL Cholesterol 58 (40-59) mg/dL Cholesterol/HDL Ratio 4.89 % - Imaging and Cardiology Echo: report reviewed EKG: report reviewed, image reviewed EKG interpretations - Telemetry EKG Rhythm: Sinus Rhythm - EKG Sinus rhythms and dysrhythmias: sinus rhythm Chamber hypertrophy or enlargement: left ventricular hypertro Assessment and Plan Assessment: Acute CVA Carotid stenosis Uncontrolled HTN HLP Moderate TR Plan: Echo reviewed with [facility]. ECG reviewed with [facility], no ischemic changes noted. Currently stable cardiac status. Pt is currently at moderate cardiovascular risk for CEA. Recommend BP optimization (SBP maintained <160) prior to proceeding with carotid intervention. Consider lexiscan MPI stress test for risk stratification following carotid intervention. Optimize anti-hypertensive regimen. Can lower MAPs by 10-15% daily to reach goal SBP 120-160 per neurology. Initiate norvasc, 10mg daily, and cont PRN IV hydralazine for SBP >160. Assessment and plan reviewed with pt and pt's daughter at bedside. The patient has been seen in conjunction with Dr. Hernández who agrees with the assessment and plan of care.
--- NOTE | 2016-09-27 16:47 | Vascular Lab Report ---
CAROTID DUPLEX STUDY: RIGHT PSVEDV CCA PROX: 7217 CCA DIST: 6920 ICA PROX:20097 ICA MID:57800 ICA DIST:04076 ECA: 93 VERT: 52 19 LEFT PSVEDV CCA PROX: 6713 CCA DIST: 5611 ICA PROX:[id number] ICA MID: 4619 ICA DIST: 3013 ECA: 119 VERT: 14 7 REASON FOR EXAM: Carotid artery stenosis. COMMENTS ON THE RIGHT: Doppler frequency analysis is consistent with 50 to 79 percent diameter reduction of the internal carotid artery. Moderate amount of blood is noted in the proximal internal carotid artery The common carotid artery is patent. The external carotid artery is patent. The vertebral artery has antegrade flow. COMMENTS ON THE LEFT: Doppler frequency analysis is consistent with 80 to 99 percent diameter reduction of the internal carotid artery. A large amount of plaque is noted in the carotid bulb extending into the internal carotid artery The common carotid artery is patent. The external carotid artery is patent. The vertebral artery has antegrade flow. IMPRESSION: 50 to 79 percent diameter reduction in the right internal carotid artery 80 to 99 percent diameter reduction in the left internal carotid artery Clinical correlation is recommended. Followup contrast study such as CTA or MRA should be considered
--- NOTE | 2016-09-27 17:12 | Event Note ---
Date: 09/27/16 Neurology input is appreciated. We will wait for 2-3 weeks before left CEA. OK to D/C from vascular stand point. We will see as outpatient. Patient should be on Plavix.
[2016-09-27] MEDS: NORVASC PO SCH (17:27)
[2016-09-27] MEDS: NORMODYNE PO SCH (22:02)
[2016-09-27 23:18] LABS: Hemoglobin 12.9 gm/dl (10.1-14.3); Mean Corpuscular HGB Conc 33 % (30-34); Mean Corpuscular Hemoglobin 27 pg (28-32); Mean Corpuscular Volume 82 fl (79-97); Platelet Count 216 K/mm3 (140-440); Red Blood Count 4.74 M/mm3 (3.65-5.03); Red Cell Distribution Width 14.7 % (13.2-15.2); White Blood Count 11.4 K/mm3 (4.5-11.0)
[2016-09-27 23:20] LABS: ISTAT Base Excess -3; ISTAT DEVICE 0; ISTAT HCO3 21.4; ISTAT PCO2 32.8 (35-45); ISTAT PH 7.422 (7.35-7.45); ISTAT PO2 58 (80-105); ISTAT SO2 90; ISTAT TCO2 22
[2016-09-27 23:32] LABS: Calcium 9.1 mg/dL (8.4-10.2); Chloride 103.7 mmol/L (98-107); Potassium 3.8 mmol/L (3.6-5.0)
--- NOTE | 2016-09-27 23:32 | Event Note ---
Date: 09/27/16 code met Patient got up to use the bathroom and had a syncopal episode for 2 minutes Shows very diaphoretic and clammy and slow to respond ABG was done which showed that she was hypoxic otherwise vitals were stable Patient has worsening left-sided weakness, 3/5 Obtain stat CAT scan of the head and CT chest to rule out PE, given recent travel from [place] It skin at the shows no acute finding Case discussed with telemetry neurologists, Dr. Hyatt who recommended conservative management at this time Case discussed with daughter Will follow CAT scan of the chest repeat labs now The high probability of a clinically significant sudden or life-threatening deterioration of the [cardiac, respiratory, renal] system(s) required my full and direct attention, intervention and personal management. The aggregate critical care time was [45 ] minutes. This time is in addition to the time spent performing reported procedures but including [ X] Data review and interpretation [ X] Patient assessment and monitoring of vital signs [ X ] Documentation [X] Medication orders and management
[2016-09-27] MEDS ORDERED: NACL ONE (23:34)
--- NOTE | 2016-09-27 23:53 | Cat Scan Report ---
FINAL REPORT EXAM: CT HEAD/BRAIN WO CON HISTORY: AMS TECHNIQUE: CT imaging is acquired through the brain without contrast. Transaxial reformations are provided. PRIORS: CT neck angiogram 09/26/2016, noncontrast head CT 09/25/2016 FINDINGS: Ventricles and CSF spaces are proportionately enlarged, consistent with parenchymal atrophy. Scattered deep and subcortical white matter hypodense foci are confluent in some areas and are compatible with microvascular angiopathy. No acute intracranial hemorrhage or mass effect. Calvarium and superficial scalp are intact. Chronic right ethmoid and sphenoid sinus disease. Likely cerumen in the right greater than left external auditory canal. IMPRESSION: No acute intracranial abnormality. Consider follow-up MRI as warranted. 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
[2016-09-28 00:25] LABS: Blastocytes % (Manual) 0 %
[2016-09-28 00:26] LABS: Anisocytosis 1+; Basophils % (Manual) 0 % (0.0-1.8); Diff Status Complete; Eosinophils % (Manual) 0 % (0.0-4.3); Giant Platelets Few; Hypochromasia 1+
--- NOTE | 2016-09-28 00:39 | Cat Scan Report ---
FINAL REPORT EXAM: CT ANGIO CHEST HISTORY: PATIENT FOUND UNRESPONSIVE. SHORTNESS OF BREATH, SUSPECTED PE. TECHNIQUE: CT angiogram of the chest was performed, with 2.5 mm thick axial images obtained after the intravenous administration of contrast. Sagittal and coronal standard reformatted and 360-rotated coronal CT-MIP images were also obtained. No prior studies are available for comparison. FINDINGS: The heart is moderately enlarged. The thoracic aorta is mildly aneurysmal, measuring up to 3.1 cm in diameter at the aortic arch, tapering to 2.5 cm in diameter in the descending thoracic portion. Mild atherosclerotic changes are seen in thoracic aorta. There is no evidence of aortic dissection. The main pulmonary artery and left and right main pulmonary artery segments are somewhat prominent, suggestive of underlying pulmonary hypertension. There is moderate streak artifact related to dense contrast in the SVC, resulting in apparent low attenuation seen within the adjacent pulmonary arterial branch extending to the anterobasilar right upper lobe (axial image 37). While artifact is favored, underlying nonocclusive thrombus is not totally excluded. Otherwise, no filling defect is seen in the central or proximal segmental pulmonary arteries to suggest pulmonary embolus. There is no mediastinal or hilar lymphadenopathy. Examination of the lung parenchyma demonstrates mild diffuse prominence of the pulmonary vasculature. There is minimal diffuse prominence of the interstitial markings. These findings may indicate early interstitial pulmonary edema, and clinical correlation is recommended. There is mild subpleural linear atelectasis in the posteromedial left lung, adjacent to the descending thoracic aorta. Mild dependent changes are seen at both posterior lung bases. There are platelike areas of scarring and/or atelectasis at lung bases, left greater than right. The trachea and proximal airways are patent. There is no pleural or pericardial effusion. There is a small hiatal hernia. Layering amorphous hyperdensity is seen in the gallbladder lumen, which may represent sludge or vicarious excretion of contrast. The remainder of the visualized upper abdomen is grossly unremarkable. There are moderate spondylotic changes seen in the spine. IMPRESSION: 1. Limited evaluation of pulmonary vessels adjacent to the SVC due to extensive contrast streak artifact, and nonocclusive thrombus within the anterobasilar right upper lobe pulmonary arterial branch is not excluded. Otherwise, no definite filling defect seen in the central or proximal segmental pulmonary arteries. 2. Borderline aneurysmal dilatation of the thoracic aorta, measuring up to 3.1 cm in diameter at the aortic arch. Findings suggestive of underlying pulmonary hypertension. 3. Cardiomegaly, with mild diffuse prominence of the pulmonary vasculature and minimal diffuse interstitial prominence. These findings may indicate mild interstitial pulmonary edema, and clinical correlation is recommended. 4. Small hiatal hernia.
[2016-09-28 02:44] LABS: Creatine Kinase MB 5.8 ng/mL (0.0-4.0)
[2016-09-28 07:31] LABS: Anion Gap 19 mmol/L; Blood Urea Nitrogen 11 mg/dL (7-17); Calcium 8.9 mg/dL (8.4-10.2); Carbon Dioxide 22 mmol/L (22-30); Chloride 102.2 mmol/L (98-107); Glucose 124 mg/dL (65-100); Potassium 4.3 mmol/L (3.6-5.0); Sodium 139 mmol/L (137-145)
[2016-09-28 07:32] LABS: Creatine Kinase MB 5.9 ng/mL (0.0-4.0)
[2016-09-28] MEDS: NORMODYNE PO SCH ×2 (09:52→21:51)
[2016-09-28] MEDS: NORVASC PO SCH (09:53)
[2016-09-28] MEDS: LOVENOX SUB-Q SCH (09:53)
[2016-09-28] MEDS: ASPIRIN PO SCH (09:54)
[2016-09-28] MEDS: ZESTRIL PO SCH (09:55)
--- NOTE | 2016-09-28 10:23 | Progress Note ---
Assessment and Plan Assessment: Acute CVA Syncope last PM - chest CTA per radiology: nonocclusive thrombus within the anterobasilar RUL is not excluded; head CT with NAF. ? PE Carotid stenosis Uncontrolled HTN HLP Moderate TR Plan: Echo reviewed with NAF. ECG reviewed with NAF, no ischemic changes noted. BPs improved. Pt is currently at moderate cardiovascular risk for CEA. Consider lexiscan MPI stress test for risk stratification following carotid intervention. Per vascular, will wait 2-3 weeks prior to intervention in setting of acute CVA. Pt with ? PE on chest CTA last night following code METS. Repeat limited echo. Obatin BLE dopplers. Await primary and vascular input. Cont telemetry. Assessment and plan reviewed with pt and pt's daughter at bedside. The patient has been seen in conjunction with Dr. Hernández who agrees with the assessment and plan of care. Subjective Date of service: 09/28/16 Principal diagnosis: CVA Interval history: Pt resting comfortably, no complaints. code met was called overnight for syncope : Patient got up to use the bathroom and had a syncopal episode for 2 minutes Shows very diaphoretic and clammy and slow to respond ABG was done which showed that she was hypoxic otherwise vitals were stable Patient has worsening left-sided weakness, 3/5 Obtain stat CAT scan of the head and CT chest to rule out PE, given recent travel from [place] Case discussed with telemetry neurologists, Dr. Hyatt who recommended conservative management at this time Objective Last Vital Signs Temp 98.4 F 09/28/16 08:00 Pulse 71 09/28/16 09:55 Resp 18 09/28/16 08:00 BP 167/79 09/28/16 09:55 Pulse Ox 98 09/28/16 08:00 - Physical Examination General: Appears Well, No Apparent Distress HEENT: Positive: PERRL, Normocephaly, Mucus Membranes Moist Neck: Positive: neck supple, trachea midline, Bruit Cardiac: Positive: Reg Rate and Rhythm, S1/S2 Lungs: Positive: clear to auscultation Neuro: Positive: Grossly Intact, Weakness (left-sided ) Abdomen: Positive: Unremarkable, Soft, Active Bowel Sounds. Negative: Tender Skin: Positive: Clear. Negative: Rash, Wound Musculoskeletal: No Fluid Collection, No Pain, Normal Range of Motion Extremities: Absent: edema - Labs and Meds Cardiac Enzymes 09/28/16 09/28/16 Range/Units 01:22 06:04 CK-MB (CK-2) 5.8 H 5.9 H (0.0-4.0) ng/mL CBC 09/27/16 Range/Units 23:09 WBC 11.4 H (4.5-11.0) K/mm3 RBC 4.74 (3.65-5.03) M/mm3 Hgb 12.9 (10.1-14.3) gm/dl Hct 39.0 (30.3-42.9) % Plt Count 216 (140-440) K/mm3 Lymph # [employer] Comprehensive Metabolic Panel 09/27/16 09/28/16 Range/Units 23:09 06:04 Sodium 140 139 (137-145) mmol/L Potassium 3.8 4.3 (3.6-5.0) mmol/L Chloride 103.7 102.2 (98-107) mmol/L Carbon Dioxide 21 L 22 (22-30) mmol/L BUN 12 11 (7-17) mg/dL Creatinine 1.2 1.0 (0.7-1.2) mg/dL Glucose 175 H 124 H (65-100) mg/dL Calcium 9.1 8.9 (8.4-10.2) mg/dL - Imaging and Cardiology EKG: report reviewed, image reviewed Echo: report reviewed - EKG Sinus rhythms and dysrhythmias: sinus rhythm Chamber hypertrophy or enlargement: left ventricular hypertro
[2016-09-28 10:25] LABS: Basophils % (Auto) 0.6 % (0.0-1.8); Eosinophils % (Auto) 0.1 % (0.0-4.3); Hematocrit 37.5 % (30.3-42.9); Hemoglobin 12.3 gm/dl (10.1-14.3); Mean Corpuscular HGB Conc 33 % (30-34); Mean Corpuscular Hemoglobin 27 pg (28-32); Mean Corpuscular Volume 83 fl (79-97); Platelet Count 186 K/mm3 (140-440); Red Blood Count 4.53 M/mm3 (3.65-5.03); Red Cell Distribution Width 14.8 % (13.2-15.2); White Blood Count 8.7 K/mm3 (4.5-11.0)
--- NOTE | 2016-09-28 12:27 | Progress Note ---
Assessment and Plan Assessment and plan: Acute CVA. Repeat head CT revealed no acute findings. MRI revealed acute pontine infarct. Echocardiogram revealed mild concentric left ventricular hypertrophy with an EF of 55%. Left ventricular diastolic filling abnormalities consistent with impaired relaxation. Neurology following. Continue neurochecks. Left critical internal carotid stenosis. CT scan reveals essentially 99% stenosis. Vascular surgery will wait 2-3 weeks prior to intervention in setting of acute CVA. Pt is currently at moderate cardiovascular risk for CEA. Cardiology to consider lexiscan MPI stress test for risk stratification following carotid intervention. Syncope. Patient with syncopal episode last night. CTA chest revealed nonocclusive thrombus within the anterobasilar RUL is not excluded Pulmonary embolus. I will Discuss with vascular surgery potential for anticoagulation. Check lower extremity Dopplers. Accelerated hypertension. Better control. Continue current medications. History Interval history: Issues of last night noted. Patient with syncopal episode. Please see code MET note for details. Hospitalist Physical - Constitutional Vitals: Temp Pulse Resp BP Pulse Ox 98.4 F 71 18 167/79 98 09/28/16 08:00 09/28/16 09:55 09/28/16 08:00 09/28/16 09:55 09/28/16 08:00 General appearance: Present: no acute distress - EENT Eyes: Present: PERRL, EOM intact ENT: hearing intact, clear oral mucosa, dentition normal - Neck Neck: Present: supple, normal ROM - Respiratory Respiratory effort: normal Respiratory: bilateral: CTA - Cardiovascular Rhythm: regular Heart Sounds: Present: S1 & S2. Absent: gallop, rub - Extremities Extremities: no ischemia, No edema, Full ROM - Abdominal General gastrointestinal: soft, non-tender, non-distended, normal bowel sounds - Integumentary Integumentary: Present: clear, warm, dry - Neurologic Neurologic: CNII-XII intact, moves all extremities Results - Labs CBC & Chem 7: 09/28/16 10:12 09/28/16 06:04 Labs: Laboratory Last Values WBC 8.7 K/mm3 (4.5-11.0) 09/28/16 10:12 RBC 4.53 M/mm3 (3.65-5.03) 09/28/16 10:12 Hgb 12.3 gm/dl (10.1-14.3) 09/28/16 10:12 Hct 37.5 % (30.3-42.9) 09/28/16 10:12 MCV 83 fl (79-97) 09/28/16 10:12 MCH 27 pg (28-32) L 09/28/16 10:12 MCHC 33 % (30-34) 09/28/16 10:12 RDW 14.8 % (13.2-15.2) 09/28/16 10:12 Plt Count 186 K/mm3 (140-440) 09/28/16 10:12 Lymph % (Auto) 29.5 % (13.4-35.0) 09/28/16 10:12 [place] % (Auto) 7.9 % (0.0-7.3) H 09/28/16 10:12 Eos % (Auto) 0.1 % (0.0-4.3) 09/28/16 10:12 Baso % (Auto) 0.6 % (0.0-1.8) 09/28/16 10:12 Lymph # 2.6 K/mm3 (1.2-5.4) 09/28/16 10:12 [place] # 0.7 K/mm3 (0.0-0.8) 09/28/16 10:12 Eos # 0.0 K/mm3 (0.0-0.4) 09/28/16 10:12 Baso # 0.1 K/mm3 (0.0-0.1) 09/28/16 10:12 Add Manual Diff Complete 09/27/16 23:09 Total Counted 100 09/27/16 23:09 Seg Neutrophils % 61.9 % (40.0-70.0) 09/28/16 10:12 Seg Neuts % (Manual) 52.0 % (40.0-70.0) 09/27/16 23:09 Band Neutrophils % 0 % 09/27/16 23:09 Lymphocytes % (Manual) 33.0 % (13.4-35.0) 09/27/16 23:09 Reactive Lymphs % (Man) 0 % 09/27/16 23:09 Monocytes % (Manual) 13.0 % (0.0-7.3) H 09/27/16 23:09 Eosinophils % (Manual) 0 % (0.0-4.3) 09/27/16 23:09 Basophils % (Manual) 0 % (0.0-1.8) 09/27/16 23:09 Metamyelocytes % 2.0 % 09/27/16 23:09 Myelocytes % 0 % 09/27/16 23:09 Promyelocytes % 0 % 09/27/16 23:09 Blast Cells % 0 % 09/27/16 23:09 Nucleated RBC % Not Reportable 09/27/16 23:09 Seg Neutrophils # 5.4 K/mm3 (1.8-7.7) 09/28/16 10:12 Seg Neutrophils # Man 5.9 K/mm3 (1.8-7.7) 09/27/16 23:09 Band Neutrophils # 0.0 K/mm3 09/27/16 23:09 Lymphocytes # (Manual) 3.8 K/mm3 (1.2-5.4) 09/27/16 23:09 Abs React Lymphs (Man) 0.0 K/mm3 09/27/16 23:09 Monocytes # (Manual) 1.5 K/mm3 (0.0-0.8) H 09/27/16 23:09 Eosinophils # (Manual) 0.0 K/mm3 (0.0-0.4) 09/27/16 23:09 Basophils # (Manual) 0.0 K/mm3 (0.0-0.1) 09/27/16 23:09 Metamyelocytes # 0.2 K/mm3 09/27/16 23:09 Myelocytes # 0.0 K/mm3 09/27/16 23:09 Promyelocytes # 0.0 K/mm3 09/27/16 23:09 Blast Cells # 0.0 K/mm3 09/27/16 23:09 WBC Morphology Not Reportable 09/27/16 23:09 Hypersegmented Neuts Not Reportable 09/27/16 23:09 Hyposegmented Neuts Not Reportable 09/27/16 23:09 Hypogranular Neuts Not Reportable 09/27/16 23:09 Smudge Cells Not Reportable 09/27/16 23:09 Toxic Granulation Not Reportable 09/27/16 23:09 Toxic Vacuolation Not Reportable 09/27/16 23:09 Dohle Bodies Not Reportable 09/27/16 23:09 Pelger-Huet Anomaly Not Reportable 09/27/16 23:09 Toby Rods Not Reportable 09/27/16 23:09 Platelet Estimate Appears normal 09/27/16 23:09 Clumped Platelets Not Reportable 09/27/16 23:09 Plt Clumps, EDTA Not Reportable 09/27/16 23:09 Large Platelets Not Reportable 09/27/16 23:09 Giant Platelets Few 09/27/16 23:09 Platelet Satelliting Not Reportable 09/27/16 23:09 Plt Morphology Comment Not Reportable 09/27/16 23:09 RBC Morphology Not Reportable 09/27/16 23:09 Dimorphic RBCs Not Reportable 09/27/16 23:09 Polychromasia Not Reportable 09/27/16 23:09 Hypochromasia 1+ 09/27/16 23:09 Poikilocytosis Not Reportable 09/27/16 23:09 Anisocytosis 1+ 09/27/16 23:09 Microcytosis Not Reportable 09/27/16 23:09 Macrocytosis Not Reportable 09/27/16 23:09 Spherocytes Not Reportable 09/27/16 23:09 Pappenheimer Bodies Not Reportable 09/27/16 23:09 Sickle Cells Not Reportable 09/27/16 23:09 Target Cells Not Reportable 09/27/16 23:09 Tear Drop Cells Not Reportable 09/27/16 23:09 Ovalocytes Not Reportable 09/27/16 23:09 Helmet Cells Not Reportable 09/27/16 23:09 [place] Bodies Not Reportable 09/27/16 23:09 [place] Rings Not Reportable 09/27/16 23:09 [place]ila Cells Not Reportable 09/27/16 23:09 Bite Cells Not Reportable 09/27/16 23:09 Crenated Cell Not Reportable 09/27/16 23:09 Elliptocytes Not Reportable 09/27/16 23:09 Acanthocytes (Spur) Not Reportable 09/27/16 23:09 Rouleaux Not Reportable 09/27/16 23:09 Hemoglobin C Crystals Not Reportable 09/27/16 23:09 Schistocytes Not Reportable 09/27/16 23:09 Malaria parasites Not Reportable 09/27/16 23:09 [place]anga Bodies Not Reportable 09/27/16 23:09 Hem Pathologist Commnt No 07/27/17 23:09 PT 13.1 Sec. (12.2-14.9) 09/25/16 20:32 INR 0.95 (0.87-1.13) 09/25/16 20:32 APTT 30.6 Sec. (24.2-36.6) 09/25/16 20:32 POC ABG pH 7.422 (7.35-7.45) 09/27/16 23:13 POC ABG pCO2 32.8 (35-45) L 09/27/16 23:13 POC ABG pO2 58 (80-105) L 09/27/16 23:13 POC ABG HCO3 21.4 09/27/16 23:13 POC ABG Total CO2 22 09/27/16 23:13 POC ABG O2 Sat 90 09/27/16 23:13 POC ABG Base Excess -3 09/27/16 23:13 FiO2 21 % 09/27/16 23:13 Sodium 139 mmol/L (137-145) 09/28/16 06:04 Potassium 4.3 mmol/L (3.6-5.0) 09/28/16 06:04 Chloride 102.2 mmol/L (98-107) 09/28/16 06:04 Carbon Dioxide 22 mmol/L (22-30) 09/28/16 06:04 Anion Gap 19 mmol/L 09/28/16 06:04 BUN 11 mg/dL (7-17) 09/28/16 06:04 Creatinine 1.0 mg/dL (0.7-1.2) 09/28/16 06:04 Estimated GFR > 60 ml/min 09/28/16 06:04 BUN/Creatinine Ratio 11.00 % 09/28/16 06:04 Glucose 124 mg/dL (65-100) H 09/28/16 06:04 POC Glucose 169 (70-105) H 09/27/16 23:01 Calcium 8.9 mg/dL (8.4-10.2) 09/28/16 06:04 Total Creatine Kinase 674 units/L (30-135) H 09/28/16 06:04 CK-MB (CK-2) 5.9 ng/mL (0.0-4.0) H 09/28/16 06:04 CK-MB (CK-2) Rel Index 0.8 (0-4) 09/28/16 06:04 Troponin T 0.098 ng/mL (0.00-0.029) H 09/28/16 06:04 Triglycerides 115 mg/dL (2-149) 09/27/16 06:31 Cholesterol 284 mg/dL (50-199) H 09/27/16 06:31 LDL Cholesterol Direct 203 mg/dL (50-130) H 09/27/16 06:31 HDL Cholesterol 58 mg/dL (40-59) 09/27/16 06:31 Cholesterol/HDL Ratio 4.89 % 09/27/16 06:31
--- NOTE | 2016-09-28 13:34 | Progress Note ---
Assessment and Plan asymptomatic left ICA carotid stenosis recommend Plavix for antiplatelet therapy, continue statins, BP control CTA chest has no evidence of PE as per discussion with radiologist. Venous duplex of LE is negative. Therefore no need for anticoagulation. Subjective Date of service: 09/28/16 Principal diagnosis: CVA Interval history: Patient had syncopal episode yesterday. No neurological difference at the time of exam. No SOB, speaks in full sentences, on NC. Objective - Constitutional Vitals: Vital Signs - 12hr 09/28/16 09/28/16 09/28/16 05:28 08:00 09:52 Temperature 99 F 98.4 F Pulse Rate 71 Pulse Rate [ 68 71 Right Radial] Respiratory 20 18 Rate Blood Pressure 167/79 Blood Pressure 156/77 167/79 [Right Radial Artery] O2 Sat by Pulse 96 98 Oximetry 09/28/16 09/28/16 09:53 09:55 Temperature Pulse Rate 71 71 Pulse Rate [ Right Radial] Respiratory Rate Blood Pressure 167/79 167/79 Blood Pressure [Right Radial Artery] O2 Sat by Pulse Oximetry General appearance: Present: no acute distress - Cardiovascular Heart Sounds: Present: S1 & S2 Extremities: No edema - Gastrointestinal General gastrointestinal: Present: soft, normal bowel sounds - Labs CBC & Chem 7: 09/28/16 10:12 09/28/16 06:04 Labs: Abnormal lab results 09/27/16 09/27/16 09/27/16 Range/Units 23:01 23:09 23:09 WBC 11.4 H (4.5-11.0) K/mm3 MCH 27 L (28-32) pg [place] % (Auto) (0.0-7.3) % Monocytes % (Manual) 13.0 H (0.0-7.3) % Monocytes # (Manual) 1.5 H (0.0-0.8) K/mm3 POC ABG pCO2 (35-45) POC ABG pO2 (80-105) Carbon Dioxide 21 L (22-30) mmol/L Glucose 175 H (65-100) mg/dL POC Glucose 169 H (70-105) Total Creatine Kinase (30-135) units/L CK-MB (CK-2) (0.0-4.0) ng/mL Troponin T 0.106 H* D (0.00-0.029) ng/mL 09/27/16 09/28/16 09/28/16 Range/Units 23:13 01:22 06:04 WBC (4.5-11.0) K/mm3 MCH (28-32) pg [place] % (Auto) (0.0-7.3) % Monocytes % (Manual) (0.0-7.3) % Monocytes # (Manual) (0.0-0.8) K/mm3 POC ABG pCO2 32.8 L (35-45) POC ABG pO2 58 L (80-105) Carbon Dioxide (22-30) mmol/L Glucose 124 H (65-100) mg/dL POC Glucose (70-105) Total Creatine Kinase 523 H (30-135) units/L CK-MB (CK-2) 5.8 H (0.0-4.0) ng/mL Troponin T 0.089 H (0.00-0.029) ng/mL 09/28/16 09/28/16 Range/Units 06:04 10:12 WBC (4.5-11.0) K/mm3 MCH 27 L (28-32) pg [place] % (Auto) 7.9 H (0.0-7.3) % Monocytes % (Manual) (0.0-7.3) % Monocytes # (Manual) (0.0-0.8) K/mm3 POC ABG pCO2 (35-45) POC ABG pO2 (80-105) Carbon Dioxide (22-30) mmol/L Glucose (65-100) mg/dL POC Glucose (70-105) Total Creatine Kinase 674 H (30-135) units/L CK-MB (CK-2) 5.9 H (0.0-4.0) ng/mL Troponin T 0.098 H (0.00-0.029) ng/mL
[2016-09-29 06:15] LABS: Anion Gap 17 mmol/L; Blood Urea Nitrogen 11 mg/dL (7-17); Carbon Dioxide 24 mmol/L (22-30); Glucose 118 mg/dL (65-100); Potassium 4.1 mmol/L (3.6-5.0); Sodium 140 mmol/L (137-145)
[2016-09-29 10:01] LABS: Basophils % (Auto) 0.4 % (0.0-1.8); Eosinophils % (Auto) 1.6 % (0.0-4.3); Hematocrit 40.4 % (30.3-42.9); Mean Corpuscular HGB Conc 32 % (30-34); Mean Corpuscular Hemoglobin 27 pg (28-32); Mean Corpuscular Volume 84 fl (79-97); Platelet Count 164 K/mm3 (140-440); Red Blood Count 4.81 M/mm3 (3.65-5.03); Red Cell Distribution Width 15.1 % (13.2-15.2); White Blood Count 9.1 K/mm3 (4.5-11.0)
[2016-09-29] MEDS: NORVASC PO SCH (11:47)
[2016-09-29] MEDS: NORMODYNE PO SCH ×2 (11:48→21:22)
[2016-09-29] MEDS: ASPIRIN PO SCH (11:48)
[2016-09-29] MEDS: ZESTRIL PO SCH (11:49)
[2016-09-29] MEDS: LOVENOX SUB-Q SCH (11:49)
--- NOTE | 2016-09-29 11:54 | Progress Note ---
Assessment and Plan Assessment and plan: Acute CVA. MRI revealed acute pontine infarct. Echocardiogram revealed mild concentric left ventricular hypertrophy with an EF of 55%. Left ventricular diastolic filling abnormalities consistent with impaired relaxation. Neurology following. Continue neurochecks. Repeat CT scan of the head to rule out hemorrhagic conversion versus extension or new CVA. Left critical internal carotid stenosis. CT scan reveals essentially 99% stenosis. Vascular surgery will wait 2-3 weeks prior to intervention in setting of acute CVA. Pt is currently at moderate cardiovascular risk for CEA. Cardiology to consider lexiscan MPI stress test for risk stratification following carotid intervention. Syncope. Patient with syncopal episode last night. CTA chest revealed nonocclusive thrombus within the anterobasilar RUL is not excluded Pulmonary embolus. I will Discuss with vascular surgery potential for anticoagulation. Check lower extremity Dopplers. Accelerated hypertension. Better control. Continue current medications. History Interval history: Nursing and family reports patient has been nonverbal all morning. Patient will follow commands. Patient does not exhibit any lateralizing signs or symptoms. Hospitalist Physical - Constitutional Vitals: Temp Pulse Resp BP Pulse Ox 98.4 F 69 20 164/77 100 09/29/16 07:47 09/29/16 11:49 09/29/16 07:47 09/29/16 11:49 09/29/16 07:47 General appearance: Present: no acute distress - EENT Eyes: Present: PERRL, EOM intact ENT: hearing intact, clear oral mucosa, dentition normal - Neck Neck: Present: supple, normal ROM - Respiratory Respiratory effort: normal Respiratory: bilateral: CTA - Cardiovascular Rhythm: regular Heart Sounds: Present: S1 & S2. Absent: gallop, rub - Extremities Extremities: no ischemia, No edema, Full ROM - Abdominal General gastrointestinal: soft, non-tender, non-distended, normal bowel sounds - Integumentary Integumentary: Present: clear, warm, dry - Neurologic Neurologic: CNII-XII intact, moves all extremities Results - Labs CBC & Chem 7: 09/29/16 09:31 09/29/16 05:14 Labs: Laboratory Last Values WBC 9.1 K/mm3 (4.5-11.0) 09/29/16 09:31 RBC 4.81 M/mm3 (3.65-5.03) 09/29/16 09:31 Hgb 13.0 gm/dl (10.1-14.3) 09/29/16 09:31 Hct 40.4 % (30.3-42.9) 09/29/16 09:31 MCV 84 fl (79-97) 09/29/16 09:31 MCH 27 pg (28-32) L 09/29/16 09:31 MCHC 32 % (30-34) 09/29/16 09:31 RDW 15.1 % (13.2-15.2) 09/29/16 09:31 Plt Count 164 K/mm3 (140-440) 09/29/16 09:31 Lymph % (Auto) 38.9 % (13.4-35.0) H 09/29/16 09:31 [place] % (Auto) 8.6 % (0.0-7.3) H 09/29/16 09:31 Eos % (Auto) 1.6 % (0.0-4.3) 09/29/16 09:31 Baso % (Auto) 0.4 % (0.0-1.8) 09/29/16 09:31 Lymph # 3.5 K/mm3 (1.2-5.4) 09/29/16 09:31 [place] # 0.8 K/mm3 (0.0-0.8) 09/29/16 09:31 Eos # 0.1 K/mm3 (0.0-0.4) 09/29/16 09:31 Baso # 0.0 K/mm3 (0.0-0.1) 09/29/16 09:31 Add Manual Diff Complete 09/27/16 23:09 Total Counted 100 09/27/16 23:09 Seg Neutrophils % 50.5 % (40.0-70.0) 09/29/16 09:31 Seg Neuts % (Manual) 52.0 % (40.0-70.0) 09/27/16 23:09 Band Neutrophils % 0 % 09/27/16 23:09 Lymphocytes % (Manual) 33.0 % (13.4-35.0) 09/27/16 23:09 Reactive Lymphs % (Man) 0 % 09/27/16 23:09 Monocytes % (Manual) 13.0 % (0.0-7.3) H 09/27/16 23:09 Eosinophils % (Manual) 0 % (0.0-4.3) 09/27/16 23:09 Basophils % (Manual) 0 % (0.0-1.8) 09/27/16 23:09 Metamyelocytes % 2.0 % 09/27/16 23:09 Myelocytes % 0 % 09/27/16 23:09 Promyelocytes % 0 % 09/27/16 23:09 Blast Cells % 0 % 09/27/16 23:09 Nucleated RBC % Not Reportable 09/27/16 23:09 Seg Neutrophils # 4.6 K/mm3 (1.8-7.7) 09/29/16 09:31 Seg Neutrophils # Man 5.9 K/mm3 (1.8-7.7) 09/27/16 23:09 Band Neutrophils # 0.0 K/mm3 09/27/16 23:09 Lymphocytes # (Manual) 3.8 K/mm3 (1.2-5.4) 09/27/16 23:09 Abs React Lymphs (Man) 0.0 K/mm3 09/27/16 23:09 Monocytes # (Manual) 1.5 K/mm3 (0.0-0.8) H 09/27/16 23:09 Eosinophils # (Manual) 0.0 K/mm3 (0.0-0.4) 09/27/16 23:09 Basophils # (Manual) 0.0 K/mm3 (0.0-0.1) 09/27/16 23:09 Metamyelocytes # 0.2 K/mm3 09/27/16 23:09 Myelocytes # 0.0 K/mm3 09/27/16 23:09 Promyelocytes # 0.0 K/mm3 09/27/16 23:09 Blast Cells # 0.0 K/mm3 09/27/16 23:09 WBC Morphology Not Reportable 09/27/16 23:09 Hypersegmented Neuts Not Reportable 09/27/16 23:09 Hyposegmented Neuts Not Reportable 09/27/16 23:09 Hypogranular Neuts Not Reportable 09/27/16 23:09 Smudge Cells Not Reportable 09/27/16 23:09 Toxic Granulation Not Reportable 09/27/16 23:09 Toxic Vacuolation Not Reportable 09/27/16 23:09 Dohle Bodies Not Reportable 09/27/16 23:09 Pelger-Huet Anomaly Not Reportable 09/27/16 23:09 Toby Rods Not Reportable 09/27/16 23:09 Platelet Estimate Appears normal 09/27/16 23:09 Clumped Platelets Not Reportable 09/27/16 23:09 Plt Clumps, EDTA Not Reportable 09/27/16 23:09 Large Platelets Not Reportable 09/27/16 23:09 Giant Platelets Few 09/27/16 23:09 Platelet Satelliting Not Reportable 09/27/16 23:09 Plt Morphology Comment Not Reportable 09/27/16 23:09 RBC Morphology Not Reportable 09/27/16 23:09 Dimorphic RBCs Not Reportable 09/27/16 23:09 Polychromasia Not Reportable 09/27/16 23:09 Hypochromasia 1+ 09/27/16 23:09 Poikilocytosis Not Reportable 09/27/16 23:09 Anisocytosis 1+ 09/27/16 23:09 Microcytosis Not Reportable 09/27/16 23:09 Macrocytosis Not Reportable 09/27/16 23:09 Spherocytes Not Reportable 09/27/16 23:09 Pappenheimer Bodies Not Reportable 09/27/16 23:09 Sickle Cells Not Reportable 09/27/16 23:09 Target Cells Not Reportable 09/27/16 23:09 Tear Drop Cells Not Reportable 09/27/16 23:09 Ovalocytes Not Reportable 09/27/16 23:09 Helmet Cells Not Reportable 09/27/16 23:09 [place] Bodies Not Reportable 09/27/16 23:09 [place] Rings Not Reportable 09/27/16 23:09 [place] Cells Not Reportable 09/27/16 23:09 Bite Cells Not Reportable 09/27/16 23:09 Crenated Cell Not Reportable 09/27/16 23:09 Elliptocytes Not Reportable 09/27/16 23:09 Acanthocytes (Spur) Not Reportable 09/27/16 23:09 Rouleaux Not Reportable 09/27/16 23:09 Hemoglobin C Crystals Not Reportable 09/27/16 23:09 Schistocytes Not Reportable 09/27/16 23:09 Malaria parasites Not Reportable 09/27/16 23:09 Ganga Bodies Not Reportable 09/27/16 23:09 Hem Pathologist Commnt No 09/27/16 23:09 PT 13.1 Sec. (12.2-14.9) 09/25/16 20:32 INR 0.95 (0.87-1.13) 09/25/16 20:32 APTT 30.6 Sec. (24.2-36.6) 09/25/16 20:32 POC ABG pH 7.422 (7.35-7.45) 09/27/16 23:13 POC ABG pCO2 32.8 (35-45) L 09/27/16 23:13 POC ABG pO2 58 (80-105) L 09/27/16 23:13 POC ABG HCO3 21.4 09/27/16 23:13 POC ABG Total CO2 22 09/27/16 23:13 POC ABG O2 Sat 90 09/27/16 23:13 POC ABG Base Excess -3 09/27/16 23:13 FiO2 21 % 09/27/16 23:13 Sodium 140 mmol/L (137-145) 09/29/16 05:14 Potassium 4.1 mmol/L (3.6-5.0) 09/29/16 05:14 Chloride 103.0 mmol/L (98-107) 09/29/16 05:14 Carbon Dioxide 24 mmol/L (22-30) 09/29/16 05:14 Anion Gap 17 mmol/L 09/29/16 05:14 BUN 11 mg/dL (7-17) 09/29/16 05:14 Creatinine 1.0 mg/dL (0.7-1.2) 09/29/16 05:14 Estimated GFR > 60 ml/min 09/29/16 05:14 BUN/Creatinine Ratio 11.00 % 09/29/16 05:14 Glucose 118 mg/dL (65-100) H 09/29/16 05:14 POC Glucose 169 (70-105) H 09/27/16 23:01 Calcium 9.0 mg/dL (8.4-10.2) 09/29/16 05:14 Total Creatine Kinase 674 units/L (30-135) H 09/28/16 06:04 CK-MB (CK-2) 5.9 ng/mL (0.0-4.0) H 09/28/16 06:04 CK-MB (CK-2) Rel Index 0.8 (0-4) 09/28/16 06:04 Troponin T 0.098 ng/mL (0.00-0.029) H 09/28/16 06:04 Triglycerides 115 mg/dL (2-149) 09/27/16 06:31 Cholesterol 284 mg/dL (50-199) H 09/27/16 06:31 LDL Cholesterol Direct 203 mg/dL (50-130) H 09/27/16 06:31 HDL Cholesterol 58 mg/dL (40-59) 09/27/16 06:31 Cholesterol/HDL Ratio 4.89 % 09/27/16 06:31
--- NOTE | 2016-09-29 14:20 | Progress Note ---
Assessment and Plan Present management. Follow up with neurology and vascular surgery - Patient Problems (1) Syncope Current Visit: Yes Status: Acute Qualifiers: Syncope type: S Encounter type: E (2) Acute CVA (cerebrovascular accident) Current Visit: Yes Status: Acute (3) Hypertension Current Visit: Yes Status: Chronic Qualifiers: Hypertension type: H (4) Hyperlipidemia Current Visit: Yes Status: Chronic Qualifiers: Hyperlipidemia type: H (5) Tricuspid regurgitation Current Visit: Yes Status: Acute Qualifiers: Cardiac valve disease etiology: C (6) Symptomatic bradycardia Current Visit: Yes Status: Acute (7) Left carotid artery stenosis Current Visit: Yes Status: Chronic Subjective Date of service: 09/29/16 Principal diagnosis: CVA Interval history: Resting in bed.Not in distress. Objective Vital Signs Temp Pulse Resp BP Pulse Ox 09/29/16 11:49 69 164/77 09/29/16 11:48 69 164/77 09/29/16 11:47 69 164/77 09/29/16 11:00 70 09/29/16 07:47 98.4 F 69 20 164/77 100 09/29/16 05:10 98.7 F 67 20 174/83 99 09/29/16 03:55 70 09/29/16 00:11 98.5 F 73 20 165/79 99 09/28/16 20:00 98.3 F 81 20 167/79 98 09/28/16 17:06 71 09/28/16 15:56 98.1 F 73 18 135/67 98 - Physical Examination General: Appears Well, No Apparent Distress HEENT: Positive: PERRL, Normocephaly, Mucus Membranes Moist Neck: Positive: neck supple, trachea midline, Bruit Cardiac: Positive: Reg Rate and Rhythm Lungs: Positive: clear to auscultation, Normal Breath Sounds, No Wheeze, Rales, Rhonchi Neuro: Positive: Grossly Intact, Weakness (left-sided ) Abdomen: Positive: Unremarkable, Soft, Active Bowel Sounds. Negative: Tender Skin: Positive: Clear. Negative: Rash, Wound Musculoskeletal: No Fluid Collection, No Pain, Normal Range of Motion Extremities: Absent: edema - Labs and Meds CBC 09/29/16 Range/Units 09:31 WBC 9.1 (4.5-11.0) K/mm3 RBC 4.81 (3.65-5.03) M/mm3 Hgb 13.0 (10.1-14.3) gm/dl Hct 40.4 (30.3-42.9) % Plt Count 164 (140-440) K/mm3 Lymph # 3.5 (1.2-5.4) K/mm3 [place] # 0.8 (0.0-0.8) K/mm3 Eos # 0.1 (0.0-0.4) K/mm3 Baso # 0.0 (0.0-0.1) K/mm3 Comprehensive Metabolic Panel 09/29/16 Range/Units 05:14 Sodium 140 (137-145) mmol/L Potassium 4.1 (3.6-5.0) mmol/L Chloride 103.0 (98-107) mmol/L Carbon Dioxide 24 (22-30) mmol/L BUN 11 (7-17) mg/dL Creatinine 1.0 (0.7-1.2) mg/dL Glucose 118 H (65-100) mg/dL Calcium 9.0 (8.4-10.2) mg/dL - Imaging and Cardiology EKG: report reviewed, image reviewed Echo: report reviewed - Telemetry EKG Rhythm: Sinus Rhythm - EKG Sinus rhythms and dysrhythmias: sinus rhythm Chamber hypertrophy or enlargement: left ventricular hypertro
--- NOTE | 2016-09-29 15:04 | Cat Scan Report ---
FINAL REPORT EXAM: CT HEAD/BRAIN WO CON HISTORY: inability to speak TECHNIQUE: CT imaging is acquired through the brain without contrast. Transaxial reformations are provided. PRIORS: 09/27/2016 FINDINGS: Ventricles and CSF spaces are proportionately enlarged, consistent with parenchymal atrophy. Scattered deep and subcortical white matter hypodense foci are confluent in some areas and are compatible with microvascular angiopathy. No acute intracranial hemorrhage or mass effect. Calvarium and superficial scalp are intact. Chronic right ethmoid and sphenoid sinus disease. IMPRESSION: No acute intracranial abnormality. 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
[2016-09-30 06:55] LABS: Anion Gap 17 mmol/L; BUN/Creatinine Ratio 11.11; Blood Urea Nitrogen 10 mg/dL (7-17); Calcium 8.7 mg/dL (8.4-10.2); Carbon Dioxide 24 mmol/L (22-30); Glucose 103 mg/dL (65-100); Potassium 4.4 mmol/L (3.6-5.0); Sodium 138 mmol/L (137-145)
[2016-09-30] MEDS: LOVENOX SUB-Q SCH (09:05)
[2016-09-30] MEDS: ASPIRIN PO SCH (09:06)
[2016-09-30] MEDS: NORMODYNE PO SCH (09:07)
[2016-09-30] MEDS: ZESTRIL PO SCH (09:07)
[2016-09-30] MEDS: NORVASC PO SCH (09:07)
[2016-09-30 10:52] LABS: Basophils % (Auto) 0.5 % (0.0-1.8); Hemoglobin 11.8 gm/dl (10.1-14.3); Mean Corpuscular HGB Conc 33 % (30-34); Mean Corpuscular Hemoglobin 27 pg (28-32); Mean Corpuscular Volume 82 fl (79-97); Platelet Count 150 K/mm3 (140-440); Red Blood Count 4.38 M/mm3 (3.65-5.03); Red Cell Distribution Width 14.5 % (13.2-15.2); White Blood Count 7.2 K/mm3 (4.5-11.0)
--- NOTE | 2016-09-30 12:39 | Progress Note ---
Assessment and Plan Assessment and plan: Acute CVA. MRI revealed acute pontine infarct. Echocardiogram revealed mild concentric left ventricular hypertrophy with an EF of 55%. Left ventricular diastolic filling abnormalities consistent with impaired relaxation. Neurology following. Continue neurochecks. Repeat CT scan of the head is found to be negative. Await neurology reevaluation on Saturday. Encephalopathy. Etiology may be secondary to #1. Check EEG. Left critical internal carotid stenosis. CT scan reveals essentially 99% stenosis. Vascular surgery will wait 2-3 weeks prior to intervention in setting of acute CVA. Pt is currently at moderate cardiovascular risk for CEA. Cardiology to consider lexiscan MPI stress test for risk stratification following carotid intervention. Syncope. Patient with syncopal episode last night. CTA chest revealed nonocclusive thrombus within the anterobasilar RUL is not excluded Pulmonary embolus. I will Discuss with vascular surgery potential for anticoagulation. Check lower extremity Dopplers. Accelerated hypertension. Better control. Continue current medications. History Interval history: Nursing and family reports patient has been nonverbal since yesterday morning. Patient reportedly has been lethargic and somnolent as well. Patient will follow commands. Patient does not exhibit any lateralizing signs or symptoms. Hospitalist Physical - Constitutional Vitals: Temp Pulse Resp BP Pulse Ox 98.8 F 64 20 178/87 100 09/30/16 08:08 09/30/16 08:08 09/30/16 08:08 09/30/16 09:07 09/30/16 08:08 General appearance: Present: no acute distress - EENT Eyes: Present: PERRL, EOM intact ENT: hearing intact, clear oral mucosa, dentition normal - Neck Neck: Present: supple, normal ROM - Respiratory Respiratory effort: normal Respiratory: bilateral: CTA - Cardiovascular Rhythm: regular Heart Sounds: Present: S1 & S2. Absent: gallop, rub - Extremities Extremities: no ischemia, No edema, Full ROM - Abdominal General gastrointestinal: soft, non-tender, non-distended, normal bowel sounds - Integumentary Integumentary: Present: clear, warm, dry - Neurologic Neurologic: CNII-XII intact, moves all extremities Results - Labs CBC & Chem 7: 09/30/16 10:37 09/30/16 06:05 Labs: Laboratory Last Values WBC 7.2 K/mm3 (4.5-11.0) 09/30/16 10:37 RBC 4.38 M/mm3 (3.65-5.03) 09/30/16 10:37 Hgb 11.8 gm/dl (10.1-14.3) 09/30/16 10:37 Hct 36.0 % (30.3-42.9) 09/30/16 10:37 MCV 82 fl (79-97) 09/30/16 10:37 MCH 27 pg (28-32) L 09/30/16 10:37 MCHC 33 % (30-34) 09/30/16 10:37 RDW 14.5 % (13.2-15.2) 09/30/16 10:37 Plt Count 150 K/mm3 (140-440) 09/30/16 10:37 Lymph % (Auto) 37.9 % (13.4-35.0) H 09/30/16 10:37 [place] % (Auto) 7.7 % (0.0-7.3) H 09/30/16 10:37 Eos % (Auto) 2.0 % (0.0-4.3) 09/30/16 10:37 Baso % (Auto) 0.5 % (0.0-1.8) 09/30/16 10:37 Lymph # 2.7 K/mm3 (1.2-5.4) 09/30/16 10:37 [place] # 0.6 K/mm3 (0.0-0.8) 09/30/16 10:37 Eos # 0.1 K/mm3 (0.0-0.4) 09/30/16 10:37 Baso # 0.0 K/mm3 (0.0-0.1) 09/30/16 10:37 Add Manual Diff Complete 09/27/16 23:09 Total Counted 100 09/27/16 23:09 Seg Neutrophils % 51.9 % (40.0-70.0) 09/30/16 10:37 Seg Neuts % (Manual) 52.0 % (40.0-70.0) 09/27/16 23:09 Band Neutrophils % 0 % 09/27/16 23:09 Lymphocytes % (Manual) 33.0 % (13.4-35.0) 09/27/16 23:09 Reactive Lymphs % (Man) 0 % 09/27/16 23:09 Monocytes % (Manual) 13.0 % (0.0-7.3) H 09/27/16 23:09 Eosinophils % (Manual) 0 % (0.0-4.3) 09/27/16 23:09 Basophils % (Manual) 0 % (0.0-1.8) 09/27/16 23:09 Metamyelocytes % 2.0 % 09/27/16 23:09 Myelocytes % 0 % 09/27/16 23:09 Promyelocytes % 0 % 09/27/16 23:09 Blast Cells % 0 % 09/27/16 23:09 Nucleated RBC % Not Reportable 09/27/16 23:09 Seg Neutrophils # 3.7 K/mm3 (1.8-7.7) 09/30/16 10:37 Seg Neutrophils # Man 5.9 K/mm3 (1.8-7.7) 09/27/16 23:09 Band Neutrophils # 0.0 K/mm3 09/27/16 23:09 Lymphocytes # (Manual) 3.8 K/mm3 (1.2-5.4) 09/27/16 23:09 Abs React Lymphs (Man) 0.0 K/mm3 09/27/16 23:09 Monocytes # (Manual) 1.5 K/mm3 (0.0-0.8) H 09/27/16 23:09 Eosinophils # (Manual) 0.0 K/mm3 (0.0-0.4) 09/27/16 23:09 Basophils # (Manual) 0.0 K/mm3 (0.0-0.1) 09/27/16 23:09 Metamyelocytes # 0.2 K/mm3 09/27/16 23:09 Myelocytes # 0.0 K/mm3 09/27/16 23:09 Promyelocytes # 0.0 K/mm3 09/27/16 23:09 Blast Cells # 0.0 K/mm3 09/27/16 23:09 WBC Morphology Not Reportable 09/27/16 23:09 Hypersegmented Neuts Not Reportable 09/27/16 23:09 Hyposegmented Neuts Not Reportable 09/27/16 23:09 Hypogranular Neuts Not Reportable 09/27/16 23:09 Smudge Cells Not Reportable 09/27/16 23:09 Toxic Granulation Not Reportable 09/27/16 23:09 Toxic Vacuolation Not Reportable 09/27/16 23:09 Dohle Bodies Not Reportable 09/27/16 23:09 Pelger-Huet Anomaly Not Reportable 09/27/16 23:09 Toby Rods Not Reportable 09/27/16 23:09 Platelet Estimate Appears normal 09/27/16 23:09 Clumped Platelets Not Reportable 09/27/16 23:09 Plt Clumps, EDTA Not Reportable 09/27/16 23:09 Large Platelets Not Reportable 09/27/16 23:09 Giant Platelets Few 09/27/16 23:09 Platelet Satelliting Not Reportable 09/27/16 23:09 Plt Morphology Comment Not Reportable 09/27/16 23:09 RBC Morphology Not Reportable 09/27/16 23:09 Dimorphic RBCs Not Reportable 09/27/16 23:09 Polychromasia Not Reportable 09/27/16 23:09 Hypochromasia 1+ 09/27/16 23:09 Poikilocytosis Not Reportable 09/27/16 23:09 Anisocytosis 1+ 09/27/16 23:09 Microcytosis Not Reportable 09/27/16 23:09 Macrocytosis Not Reportable 09/27/16 23:09 Spherocytes Not Reportable 09/27/16 23:09 Pappenheimer Bodies Not Reportable 09/27/16 23:09 Sickle Cells Not Reportable 09/27/16 23:09 Target Cells Not Reportable 09/27/16 23:09 Tear Drop Cells Not Reportable 09/27/16 23:09 Ovalocytes Not Reportable 09/27/16 23:09 Helmet Cells Not Reportable 09/27/16 23:09 [place] Bodies Not Reportable 09/27/16 23:09 [place] Rings Not Reportable 09/27/16 23:09 [place] Cells Not Reportable 09/27/16 23:09 Bite Cells Not Reportable 09/27/16 23:09 Crenated Cell Not Reportable 09/27/16 23:09 Elliptocytes Not Reportable 09/27/16 23:09 Acanthocytes (Spur) Not Reportable 09/27/16 23:09 Rouleaux Not Reportable 09/27/16 23:09 Hemoglobin C Crystals Not Reportable 09/27/16 23:09 Schistocytes Not Reportable 09/27/16 23:09 Malaria parasites Not Reportable 09/27/16 23:09 [place] Bodies Not Reportable 09/27/16 23:09 Hem Pathologist Commnt No 09/27/16 23:09 PT 13.1 Sec. (12.2-14.9) 09/25/16 20:32 INR 0.95 (0.87-1.13) 09/25/16 20:32 APTT 30.6 Sec. (24.2-36.6) 09/25/16 20:32 POC ABG pH 7.422 (7.35-7.45) 09/27/16 23:13 POC ABG pCO2 32.8 (35-45) L 09/27/16 23:13 POC ABG pO2 58 (80-105) L 09/27/16 23:13 POC ABG HCO3 21.4 09/27/16 23:13 POC ABG Total CO2 22 09/27/16 23:13 POC ABG O2 Sat 90 09/27/16 23:13 POC ABG Base Excess -3 09/27/16 23:13 FiO2 21 % 09/27/16 23:13 Sodium 138 mmol/L (137-145) 09/30/16 06:05 Potassium 4.4 mmol/L (3.6-5.0) 09/30/16 06:05 Chloride 101.0 mmol/L (98-107) 09/30/16 06:05 Carbon Dioxide 24 mmol/L (22-30) 09/30/16 06:05 Anion Gap 17 mmol/L 09/30/16 06:05 BUN 10 mg/dL (7-17) 09/30/16 06:05 Creatinine 0.9 mg/dL (0.7-1.2) 09/30/16 06:05 Estimated GFR > 60 ml/min 09/30/16 06:05 BUN/Creatinine Ratio 11.11 % 09/30/16 06:05 Glucose 103 mg/dL (65-100) H 09/30/16 06:05 POC Glucose 169 (70-105) H 09/27/16 23:01 Calcium 8.7 mg/dL (8.4-10.2) 09/30/16 06:05 Total Creatine Kinase 674 units/L (30-135) H 09/28/16 06:04 CK-MB (CK-2) 5.9 ng/mL (0.0-4.0) H 09/28/16 06:04 CK-MB (CK-2) Rel Index 0.8 (0-4) 09/28/16 06:04 Troponin T 0.098 ng/mL (0.00-0.029) H 09/28/16 06:04 Triglycerides 115 mg/dL (2-149) 09/27/16 06:31 Cholesterol 284 mg/dL (50-199) H 09/27/16 06:31 LDL Cholesterol Direct 203 mg/dL (50-130) H 09/27/16 06:31 HDL Cholesterol 58 mg/dL (40-59) 09/27/16 06:31 Cholesterol/HDL Ratio 4.89 % 09/27/16 06:31
--- NOTE | 2016-09-30 19:57 | Progress Note ---
Assessment and Plan Awaiting vascular surgery input.Discussed with family members at bedside. - Patient Problems (1) Syncope Current Visit: Yes Status: Acute Qualifiers: Syncope type: S Encounter type: E (2) Acute CVA (cerebrovascular accident) Current Visit: Yes Status: Acute (3) Hypertension Current Visit: Yes Status: Chronic Qualifiers: Hypertension type: H (4) Hyperlipidemia Current Visit: Yes Status: Chronic Qualifiers: Hyperlipidemia type: H (5) Tricuspid regurgitation Current Visit: Yes Status: Acute Qualifiers: Cardiac valve disease etiology: C (6) Symptomatic bradycardia Current Visit: Yes Status: Acute (7) Left carotid artery stenosis Current Visit: Yes Status: Chronic Subjective Date of service: 09/30/16 Principal diagnosis: CVA Interval history: Resting in bed.Not in distress.more alert.responds to commands. Objective Vital Signs Temp Pulse Pulse Resp BP Pulse Ox 09/30/16 16:16 98.9 F 59 L 20 169/79 99 09/30/16 10:00 20 L 09/30/16 09:07 178/87 09/30/16 08:08 98.8 F 64 20 165/78 100 09/30/16 04:00 98.3 F 63 18 140/70 97 09/30/16 03:00 68 09/30/16 00:00 98.1 F 67 18 118/64 98 - Physical Examination General: Appears Well, No Apparent Distress HEENT: Positive: PERRL, Normocephaly, Mucus Membranes Moist Neck: Positive: neck supple, trachea midline, Bruit Cardiac: Positive: Reg Rate and Rhythm Lungs: Positive: clear to auscultation, Normal Breath Sounds, No Wheeze, Rales, Rhonchi Neuro: Positive: Weakness (left-sided ) Abdomen: Positive: Unremarkable, Soft, Active Bowel Sounds. Negative: Tender Skin: Positive: Clear. Negative: Rash, Wound Musculoskeletal: No Fluid Collection, No Pain Extremities: Absent: edema - Labs and Meds CBC 09/30/16 Range/Units 10:37 WBC 7.2 (4.5-11.0) K/mm3 RBC 4.38 (3.65-5.03) M/mm3 Hgb 11.8 (10.1-14.3) gm/dl Hct 36.0 (30.3-42.9) % Plt Count 150 (140-440) K/mm3 Lymph # 2.7 (1.2-5.4) K/mm3 [place] # 0.6 (0.0-0.8) K/mm3 Eos # 0.1 (0.0-0.4) K/mm3 Baso # 0.0 (0.0-0.1) K/mm3 Comprehensive Metabolic Panel 09/30/16 Range/Units 06:05 Sodium 138 (137-145) mmol/L Potassium 4.4 (3.6-5.0) mmol/L Chloride 101.0 (98-107) mmol/L Carbon Dioxide 24 (22-30) mmol/L BUN 10 (7-17) mg/dL Creatinine 0.9 (0.7-1.2) mg/dL Glucose 103 H (65-100) mg/dL Calcium 8.7 (8.4-10.2) mg/dL - Imaging and Cardiology EKG: report reviewed, image reviewed Echo: report reviewed - Telemetry EKG Rhythm: Sinus Rhythm - EKG Sinus rhythms and dysrhythmias: sinus rhythm Chamber hypertrophy or enlargement: left ventricular hypertro
[2016-10-01] MEDS: NORMODYNE PO SCH ×4 (00:16→22:00)
[2016-10-01 06:12] LABS: Anion Gap 17 mmol/L; BUN/Creatinine Ratio 11.25; Blood Urea Nitrogen 9 mg/dL (7-17); Calcium 9.2 mg/dL (8.4-10.2); Carbon Dioxide 25 mmol/L (22-30); Chloride 105.3 mmol/L (98-107); Glucose 107 mg/dL (65-100); Potassium 4.4 mmol/L (3.6-5.0); Sodium 143 mmol/L (137-145)
[2016-10-01 10:51] LABS: Basophils % (Auto) 0.5 % (0.0-1.8); Eosinophils % (Auto) 2.4 % (0.0-4.3); Hematocrit 37.7 % (30.3-42.9); Hemoglobin 12.6 gm/dl (10.1-14.3); Mean Corpuscular HGB Conc 33 % (30-34); Mean Corpuscular Hemoglobin 28 pg (28-32); Mean Corpuscular Volume 83 fl (79-97); Platelet Count 184 K/mm3 (140-440); Red Blood Count 4.54 M/mm3 (3.65-5.03); Red Cell Distribution Width 14.6 % (13.2-15.2); White Blood Count 6.3 K/mm3 (4.5-11.0)
--- NOTE | 2016-10-01 11:41 | Progress Note ---
Assessment and Plan Assessment and plan: Acute CVA. MRI revealed acute pontine infarct. Echocardiogram revealed mild concentric left ventricular hypertrophy with an EF of 55%. Left ventricular diastolic filling abnormalities consistent with impaired relaxation. Neurology following. Continue neurochecks. Patient appears to have expressive aphasia. Await neurology evaluation. Encephalopathy. Etiology may be secondary to #1. Check EEG. Left critical internal carotid stenosis. CT scan reveals essentially 99% stenosis. Vascular surgery will wait 2-3 weeks prior to intervention in setting of acute CVA. Pt is currently at moderate cardiovascular risk for CEA. Cardiology to consider lexiscan MPI stress test for risk stratification following carotid intervention. We will start Plavix per vascular surgery recommendations. Syncope. Patient with syncopal episode on 09/27/16. Vascular surgery reevaluated CTA of chest and appears to have no evidence of PE as per discussion with radiologist. Pulmonary embolus. I will Discuss with vascular surgery potential for anticoagulation. Lower extremity Dopplers are negative. Accelerated hypertension. Better control. Continue current medications. DVT prophylaxis. Continue Lovenox. History Interval history: Nursing and family reports patient has been nonverbal since yesterday morning. Patient's lethargy and somnolence improved. Patient will speak but exhibits what appears to be expressive aphasia. Patient will follow commands. Patient does not exhibit any lateralizing signs or symptoms. Hospitalist Physical - Constitutional Vitals: Temp Pulse Resp BP Pulse Ox 98.4 F 63 18 167/73 100 10/01/16 03:50 10/01/16 08:00 10/01/16 08:00 10/01/16 08:00 10/01/16 08:00 General appearance: Present: no acute distress - EENT Eyes: Present: PERRL, EOM intact ENT: hearing intact, clear oral mucosa, dentition normal - Neck Neck: Present: supple, normal ROM - Respiratory Respiratory effort: normal Respiratory: bilateral: CTA - Cardiovascular Rhythm: regular Heart Sounds: Present: S1 & S2. Absent: gallop, rub - Extremities Extremities: no ischemia, No edema, Full ROM - Abdominal General gastrointestinal: soft, non-tender, non-distended, normal bowel sounds - Integumentary Integumentary: Present: clear, warm, dry - Neurologic Neurologic: CNII-XII intact, moves all extremities Results - Labs CBC & Chem 7: 10/01/16 10:03 10/01/16 05:36 Labs: Laboratory Last Values WBC 6.3 K/mm3 (4.5-11.0) 10/01/16 10:03 RBC 4.54 M/mm3 (3.65-5.03) 10/01/16 10:03 Hgb 12.6 gm/dl (10.1-14.3) 10/01/16 10:03 Hct 37.7 % (30.3-42.9) 10/01/16 10:03 MCV 83 fl (79-97) 10/01/16 10:03 MCH 28 pg (28-32) 10/01/16 10:03 MCHC 33 % (30-34) 10/01/16 10:03 RDW 14.6 % (13.2-15.2) 10/01/16 10:03 Plt Count 184 K/mm3 (140-440) 10/01/16 10:03 Lymph % (Auto) 26.5 % (13.4-35.0) 10/01/16 10:03 [place] % (Auto) 8.0 % (0.0-7.3) H 10/01/16 10:03 Eos % (Auto) 2.4 % (0.0-4.3) 10/01/16 10:03 Baso % (Auto) 0.5 % (0.0-1.8) 10/01/16 10:03 Lymph # 1.7 K/mm3 (1.2-5.4) 10/01/16 10:03 [place] # 0.5 K/mm3 (0.0-0.8) 10/01/16 10:03 Eos # 0.2 K/mm3 (0.0-0.4) 10/01/16 10:03 Baso # 0.0 K/mm3 (0.0-0.1) 10/01/16 10:03 Add Manual Diff Complete 09/27/16 23:09 Total Counted 100 09/27/16 23:09 Seg Neutrophils % 62.6 % (40.0-70.0) 10/01/16 10:03 Seg Neuts % (Manual) 52.0 % (40.0-70.0) 09/27/16 23:09 Band Neutrophils % 0 % 09/27/16 23:09 Lymphocytes % (Manual) 33.0 % (13.4-35.0) 09/27/16 23:09 Reactive Lymphs % (Man) 0 % 09/27/16 23:09 Monocytes % (Manual) 13.0 % (0.0-7.3) H 09/27/16 23:09 Eosinophils % (Manual) 0 % (0.0-4.3) 09/27/16 23:09 Basophils % (Manual) 0 % (0.0-1.8) 09/27/16 23:09 Metamyelocytes % 2.0 % 09/27/16 23:09 Myelocytes % 0 % 09/27/16 23:09 Promyelocytes % 0 % 09/27/16 23:09 Blast Cells % 0 % 09/27/16 23:09 Nucleated RBC % Not Reportable 09/27/16 23:09 Seg Neutrophils # 3.9 K/mm3 (1.8-7.7) 10/01/16 10:03 Seg Neutrophils # Man 5.9 K/mm3 (1.8-7.7) 09/27/16 23:09 Band Neutrophils # 0.0 K/mm3 09/27/16 23:09 Lymphocytes # (Manual) 3.8 K/mm3 (1.2-5.4) 09/27/16 23:09 Abs React Lymphs (Man) 0.0 K/mm3 09/27/16 23:09 Monocytes # (Manual) 1.5 K/mm3 (0.0-0.8) H 09/27/16 23:09 Eosinophils # (Manual) 0.0 K/mm3 (0.0-0.4) 09/27/16 23:09 Basophils # (Manual) 0.0 K/mm3 (0.0-0.1) 09/27/16 23:09 Metamyelocytes # 0.2 K/mm3 09/27/16 23:09 Myelocytes # 0.0 K/mm3 09/27/16 23:09 Promyelocytes # 0.0 K/mm3 09/27/16 23:09 Blast Cells # 0.0 K/mm3 09/27/16 23:09 WBC Morphology Not Reportable 09/27/16 23:09 Hypersegmented Neuts Not Reportable 09/27/16 23:09 Hyposegmented Neuts Not Reportable 09/27/16 23:09 Hypogranular Neuts Not Reportable 09/27/16 23:09 Smudge Cells Not Reportable 09/27/16 23:09 Toxic Granulation Not Reportable 09/27/16 23:09 Toxic Vacuolation Not Reportable 09/27/16 23:09 Dohle Bodies Not Reportable 09/27/16 23:09 Pelger-Huet Anomaly Not Reportable 09/27/16 23:09 Toby Rods Not Reportable 09/27/16 23:09 Platelet Estimate Appears normal 09/27/16 23:09 Clumped Platelets Not Reportable 09/27/16 23:09 Plt Clumps, EDTA Not Reportable 09/27/16 23:09 Large Platelets Not Reportable 09/27/16 23:09 Giant Platelets Few 09/27/16 23:09 Platelet Satelliting Not Reportable 09/27/16 23:09 Plt Morphology Comment Not Reportable 09/27/16 23:09 RBC Morphology Not Reportable 09/27/16 23:09 Dimorphic RBCs Not Reportable 09/27/16 23:09 Polychromasia Not Reportable 09/27/16 23:09 Hypochromasia 1+ 09/27/16 23:09 Poikilocytosis Not Reportable 09/27/16 23:09 Anisocytosis 1+ 09/27/16 23:09 Microcytosis Not Reportable 09/27/16 23:09 Macrocytosis Not Reportable 09/27/16 23:09 Spherocytes Not Reportable 09/27/16 23:09 Pappenheimer Bodies Not Reportable 09/27/16 23:09 Sickle Cells Not Reportable 09/27/16 23:09 Target Cells Not Reportable 09/27/16 23:09 Tear Drop Cells Not Reportable 09/27/16 23:09 Ovalocytes Not Reportable 09/27/16 23:09 Helmet Cells Not Reportable 09/27/16 23:09 [place] Bodies Not Reportable 09/27/16 23:09 [place] Rings Not Reportable 09/27/16 23:09 [place] Cells Not Reportable 09/27/16 23:09 Bite Cells Not Reportable 09/27/16 23:09 Crenated Cell Not Reportable 09/27/16 23:09 Elliptocytes Not Reportable 09/27/16 23:09 Acanthocytes (Spur) Not Reportable 09/27/16 23:09 Rouleaux Not Reportable 09/27/16 23:09 Hemoglobin C Crystals Not Reportable 09/27/16 23:09 Schistocytes Not Reportable 09/27/16 23:09 Malaria parasites Not Reportable 09/27/16 23:09 Ganga Bodies Not Reportable 09/27/16 23:09 Hem Pathologist Commnt No 09/27/16 23:09 PT 13.1 Sec. (12.2-14.9) 09/25/16 20:32 INR 0.95 (0.87-1.13) 09/25/16 20:32 APTT 30.6 Sec. (24.2-36.6) 09/25/16 20:32 POC ABG pH 7.422 (7.35-7.45) 09/27/16 23:13 POC ABG pCO2 32.8 (35-45) L 09/27/16 23:13 POC ABG pO2 58 (80-105) L 09/27/16 23:13 POC ABG HCO3 21.4 09/27/16 23:13 POC ABG Total CO2 22 09/27/16 23:13 POC ABG O2 Sat 90 09/27/16 23:13 POC ABG Base Excess -3 09/27/16 23:13 FiO2 21 % 09/27/16 23:13 Sodium 143 mmol/L (137-145) 10/01/16 05:36 Potassium 4.4 mmol/L (3.6-5.0) 10/01/16 05:36 Chloride 105.3 mmol/L (98-107) 10/01/16 05:36 Carbon Dioxide 25 mmol/L (22-30) 10/01/16 05:36 Anion Gap 17 mmol/L 10/01/16 05:36 BUN 9 mg/dL (7-17) 10/01/16 05:36 Creatinine 0.8 mg/dL (0.7-1.2) 10/01/16 05:36 Estimated GFR > 60 ml/min 10/01/16 05:36 BUN/Creatinine Ratio 11.25 % 10/01/16 05:36 Glucose 107 mg/dL (65-100) H 10/01/16 05:36 POC Glucose 102 (70-105) 09/30/16 08:03 Calcium 9.2 mg/dL (8.4-10.2) 10/01/16 05:36 Ammonia 41.0 umol/L (25-60) 10/01/16 05:36 Total Creatine Kinase 674 units/L (30-135) H 09/28/16 06:04 CK-MB (CK-2) 5.9 ng/mL (0.0-4.0) H 09/28/16 06:04 CK-MB (CK-2) Rel Index 0.8 (0-4) 09/28/16 06:04 Troponin T 0.098 ng/mL (0.00-0.029) H 09/28/16 06:04 Triglycerides 115 mg/dL (2-149) 09/27/16 06:31 Cholesterol 284 mg/dL (50-199) H 09/27/16 06:31 LDL Cholesterol Direct 203 mg/dL (50-130) H 09/27/16 06:31 HDL Cholesterol 58 mg/dL (40-59) 09/27/16 06:31 Cholesterol/HDL Ratio 4.89 % 09/27/16 06:31 TSH 1.310 mlU/mL (0.270-4.200) 09/30/16 13:23
--- NOTE | 2016-10-01 11:44 | Progress Note ---
Assessment and Plan No indication for anticoagulation per vascular team. Currently stable cardiac status. Pt may discharge home from cardiology standpoint. Recommend follow up in our office with Shonna Vance NP, within 2 weeks of hospital discharge ([phone]). - Patient Problems (1) Syncope Current Visit: Yes Status: Acute Qualifiers: Syncope type: S Encounter type: E (2) Acute CVA (cerebrovascular accident) Current Visit: Yes Status: Acute (3) Hypertension Current Visit: Yes Status: Chronic Qualifiers: Hypertension type: H (4) Hyperlipidemia Current Visit: Yes Status: Chronic Qualifiers: Hyperlipidemia type: H (5) Tricuspid regurgitation Current Visit: Yes Status: Acute Qualifiers: Cardiac valve disease etiology: C (6) Symptomatic bradycardia Current Visit: Yes Status: Acute (7) Left carotid artery stenosis Current Visit: Yes Status: Chronic The patient has been seen in conjunction with Dr. Braun who agrees with the assessment and plan of care. Subjective Date of service: 10/01/16 Principal diagnosis: CVA Interval history: Pt resting comfortably, no complaints. VSS. Objective Last Vital Signs Temp 98.4 F 10/01/16 03:50 Pulse 63 10/01/16 08:00 Resp 18 10/01/16 08:00 BP 167/73 10/01/16 08:00 Pulse Ox 100 10/01/16 08:00 - Physical Examination General: Appears Well, No Apparent Distress HEENT: Positive: PERRL, Normocephaly, Mucus Membranes Moist Neck: Positive: neck supple, trachea midline, Bruit Cardiac: Positive: Reg Rate and Rhythm, irregularly irregular Lungs: Positive: clear to auscultation Neuro: Positive: Grossly Intact, Weakness (left-sided ) Abdomen: Positive: Unremarkable, Soft, Active Bowel Sounds. Negative: Tender Skin: Positive: Clear. Negative: Rash, Wound Musculoskeletal: No Fluid Collection, No Pain Extremities: Absent: edema - Labs and Meds CBC 10/01/16 Range/Units 10:03 WBC 6.3 (4.5-11.0) K/mm3 RBC 4.54 (3.65-5.03) M/mm3 Hgb 12.6 (10.1-14.3) gm/dl Hct 37.7 (30.3-42.9) % Plt Count 184 (140-440) K/mm3 Lymph # 1.7 (1.2-5.4) K/mm3 [place] # 0.5 (0.0-0.8) K/mm3 Eos # 0.2 (0.0-0.4) K/mm3 Baso # 0.0 (0.0-0.1) K/mm3 Comprehensive Metabolic Panel 10/01/16 Range/Units 05:36 Sodium 143 (137-145) mmol/L Potassium 4.4 (3.6-5.0) mmol/L Chloride 105.3 (98-107) mmol/L Carbon Dioxide 25 (22-30) mmol/L BUN 9 (7-17) mg/dL Creatinine 0.8 (0.7-1.2) mg/dL Glucose 107 H (65-100) mg/dL Calcium 9.2 (8.4-10.2) mg/dL - Imaging and Cardiology EKG: report reviewed, image reviewed Echo: report reviewed - EKG Sinus rhythms and dysrhythmias: sinus rhythm Chamber hypertrophy or enlargement: left ventricular hypertro
[2016-10-01] MEDS: LOVENOX SUB-Q SCH (13:09)
[2016-10-01] MEDS: ASPIRIN PO SCH (13:09)
[2016-10-01] MEDS: ZESTRIL PO SCH (13:10)
[2016-10-01] MEDS: NORVASC PO SCH (13:11)
--- NOTE | 2016-10-01 13:41 | Vascular Lab Report ---
LOWER EXTREMITY VENOUS DUPLEX: REASON FOR EXAM: Pulmonary embolism. COMMENTS ON THE RIGHT: All veins visualized are freely compressible without evidence of internal echogenicity. Flow is spontaneous and phasic throughout. COMMENTS ON THE LEFT: All veins visualized are freely compressible without evidence of internal echogenicity. Flow is spontaneous and phasic throughout. IMPRESSION: No evidence of acute or chronic deep venous thrombosis in either lower extremity.
[2016-10-02 06:41] LABS: BUN/Creatinine Ratio 14.44; Blood Urea Nitrogen 13 mg/dL (7-17); Calcium 8.8 mg/dL (8.4-10.2); Carbon Dioxide 21 mmol/L (22-30); Chloride 102.2 mmol/L (98-107); Glucose 101 mg/dL (65-100); Sodium 138 mmol/L (137-145)
[2016-10-02 06:57] LABS: Anion Gap 20 mmol/L; Potassium 4.8 mmol/L (3.6-5.0)
[2016-10-02] MEDS: NORMODYNE PO SCH ×2 (09:51→21:43)
[2016-10-02] MEDS: PLAVIX PO SCH (09:52)
[2016-10-02] MEDS: ASPIRIN PO SCH (09:52)
[2016-10-02] MEDS: NORVASC PO SCH (09:52)
[2016-10-02] MEDS: ZESTRIL PO SCH (09:52)
[2016-10-02] MEDS: LOVENOX SUB-Q SCH (09:57)
[2016-10-02 12:18] LABS: Basophils % (Auto) 0.4 % (0.0-1.8); Eosinophils % (Auto) 2.9 % (0.0-4.3); Hematocrit 36.9 % (30.3-42.9); Hemoglobin 12.3 gm/dl (10.1-14.3); Mean Corpuscular HGB Conc 33 % (30-34); Mean Corpuscular Hemoglobin 27 pg (28-32); Mean Corpuscular Volume 82 fl (79-97); Platelet Count 186 K/mm3 (140-440); Red Blood Count 4.49 M/mm3 (3.65-5.03); Red Cell Distribution Width 14.5 % (13.2-15.2); White Blood Count 7.1 K/mm3 (4.5-11.0)
--- NOTE | 2016-10-02 15:50 | XRay Report ---
PORTABLE CHEST INDICATION: Chest pain. COMPARISON: 09/27/2016 chest CTA. FINDINGS: Portable, frontal chest radiograph demonstrates limited inspiration with exaggerated cardiomediastinal silhouette; possible cardiomegaly. Slightly crowded lung markings centrally. No pleural effusions or CHF however. EKG leads. Thoracic spondylosis. Demineralized bones. CONCLUSION: No acute disease, as described. Thank you for the opportunity to participate in this patient's care.
--- NOTE | 2016-10-02 16:20 | Progress Note ---
Assessment and Plan Assessment and plan: Acute CVA. MRI revealed acute pontine infarct. Echocardiogram revealed mild concentric left ventricular hypertrophy with an EF of 55%. Left ventricular diastolic filling abnormalities consistent with impaired relaxation. Neurology following. Continue neurochecks. Patient appears to have expressive aphasia. Encephalopathy. Etiology may be secondary to #1. Check EEG. Left critical internal carotid stenosis. CT scan reveals essentially 99% stenosis. Vascular surgery will wait 2-3 weeks prior to intervention in setting of acute CVA. Pt is currently at moderate cardiovascular risk for CEA. Cardiology to consider lexiscan MPI stress test for risk stratification following carotid intervention. Patient is on Plavix per vascular surgery recommendations. Syncope. Patient with syncopal episode on 09/27/16. Vascular surgery reevaluated CTA of chest and appears to have no evidence of PE as per discussion with radiologist. No anticoagulation recommended at this time Accelerated hypertension. Better control. Continue current medications. DVT prophylaxis. Continue Lovenox. Disposition: Pending acute rehabilitation placement. History Interval history: Recent was seen and evaluated, she was complaining shortness of breath and chest x-ray was done no different from baseline x-ray. Continue his breathing treatment. Hospitalist Physical - Physical exam Narrative exam: Not in cardiopulmonary distress. The patient appeared well nourished and normally developed. Vital signs as documented. Head exam is unremarkable. No scleral icterus . Neck is without jugular venous distension, thyromegaly, or carotid bruits. Lungs are clear to auscultation. Cardiac exam reveals regular rate and Rhythm. First and second heart sounds normal. No murmurs, rubs or gallops. Abdominal exam reveals normal bowel sounds, no masses, no organomegaly and no aortic enlargement. Extremities are nonedematous and both femoral and pedal pulses are normal. [employer]: Alert and oriented 3. Mild weakness of the left upper extremity. - Constitutional Vitals: Temp Pulse Resp BP Pulse Ox 98.2 F 60 20 131/62 96 10/02/16 11:40 10/02/16 11:40 10/02/16 11:40 10/02/16 11:40 10/02/16 11:40 General appearance: Present: no acute distress Results - Labs CBC & Chem 7: 10/02/16 11:49 10/02/16 05:42 Labs: Laboratory Last Values WBC 7.1 K/mm3 (4.5-11.0) 10/02/16 11:49 RBC 4.49 M/mm3 (3.65-5.03) 10/02/16 11:49 Hgb 12.3 gm/dl (10.1-14.3) 10/02/16 11:49 Hct 36.9 % (30.3-42.9) 10/02/16 11:49 MCV 82 fl (79-97) 10/02/16 11:49 MCH 27 pg (28-32) L 10/02/16 11:49 MCHC 33 % (30-34) 10/02/16 11:49 RDW 14.5 % (13.2-15.2) 10/02/16 11:49 Plt Count 186 K/mm3 (140-440) 10/02/16 11:49 Lymph % (Auto) 37.3 % (13.4-35.0) H 10/02/16 11:49 [place] % (Auto) 8.9 % (0.0-7.3) H 10/02/16 11:49 Eos % (Auto) 2.9 % (0.0-4.3) 10/02/16 11:49 Baso % (Auto) 0.4 % (0.0-1.8) 10/02/16 11:49 Lymph # 2.6 K/mm3 (1.2-5.4) 10/02/16 11:49 [place] # 0.6 K/mm3 (0.0-0.8) 10/02/16 11:49 Eos # 0.2 K/mm3 (0.0-0.4) 10/02/16 11:49 Baso # 0.0 K/mm3 (0.0-0.1) 10/02/16 11:49 Add Manual Diff Complete 09/27/16 23:09 Total Counted 100 09/27/16 23:09 Seg Neutrophils % 50.5 % (40.0-70.0) 10/02/16 11:49 Seg Neuts % (Manual) 52.0 % (40.0-70.0) 09/27/16 23:09 Band Neutrophils % 0 % 09/27/16 23:09 Lymphocytes % (Manual) 33.0 % (13.4-35.0) 09/27/16 23:09 Reactive Lymphs % (Man) 0 % 09/27/16 23:09 Monocytes % (Manual) 13.0 % (0.0-7.3) H 09/27/16 23:09 Eosinophils % (Manual) 0 % (0.0-4.3) 09/27/16 23:09 Basophils % (Manual) 0 % (0.0-1.8) 09/27/16 23:09 Metamyelocytes % 2.0 % 09/27/16 23:09 Myelocytes % 0 % 09/27/16 23:09 Promyelocytes % 0 % 09/27/16 23:09 Blast Cells % 0 % 09/27/16 23:09 Nucleated RBC % Not Reportable 09/27/16 23:09 Seg Neutrophils # 3.6 K/mm3 (1.8-7.7) 10/02/16 11:49 Seg Neutrophils # Man 5.9 K/mm3 (1.8-7.7) 09/27/16 23:09 Band Neutrophils # 0.0 K/mm3 09/27/16 23:09 Lymphocytes # (Manual) 3.8 K/mm3 (1.2-5.4) 09/27/16 23:09 Abs React Lymphs (Man) 0.0 K/mm3 09/27/16 23:09 Monocytes # (Manual) 1.5 K/mm3 (0.0-0.8) H 09/27/16 23:09 Eosinophils # (Manual) 0.0 K/mm3 (0.0-0.4) 09/27/16 23:09 Basophils # (Manual) 0.0 K/mm3 (0.0-0.1) 09/27/16 23:09 Metamyelocytes # 0.2 K/mm3 09/27/16 23:09 Myelocytes # 0.0 K/mm3 09/27/16 23:09 Promyelocytes # 0.0 K/mm3 09/27/16 23:09 Blast Cells # 0.0 K/mm3 09/27/16 23:09 WBC Morphology Not Reportable 09/27/16 23:09 Hypersegmented Neuts Not Reportable 09/27/16 23:09 Hyposegmented Neuts Not Reportable 09/27/16 23:09 Hypogranular Neuts Not Reportable 09/27/16 23:09 Smudge Cells Not Reportable 09/27/16 23:09 Toxic Granulation Not Reportable 09/27/16 23:09 Toxic Vacuolation Not Reportable 09/27/16 23:09 Dohle Bodies Not Reportable 09/27/16 23:09 Pelger-Huet Anomaly Not Reportable 09/27/16 23:09 Toby Rods Not Reportable 09/27/16 23:09 Platelet Estimate Appears normal 09/27/16 23:09 Clumped Platelets Not Reportable 09/27/16 23:09 Plt Clumps, EDTA Not Reportable 09/27/16 23:09 Large Platelets Not Reportable 09/27/16 23:09 Giant Platelets Few 09/27/16 23:09 Platelet Satelliting Not Reportable 09/27/16 23:09 Plt Morphology Comment Not Reportable 09/27/16 23:09 RBC Morphology Not Reportable 09/27/16 23:09 Dimorphic RBCs Not Reportable 09/27/16 23:09 Polychromasia Not Reportable 09/27/16 23:09 Hypochromasia 1+ 09/27/16 23:09 Poikilocytosis Not Reportable 09/27/16 23:09 Anisocytosis 1+ 09/27/16 23:09 Microcytosis Not Reportable 09/27/16 23:09 Macrocytosis Not Reportable 09/27/16 23:09 Spherocytes Not Reportable 09/27/16 23:09 Pappenheimer Bodies Not Reportable 09/27/16 23:09 Sickle Cells Not Reportable 09/27/16 23:09 Target Cells Not Reportable 09/27/16 23:09 Tear Drop Cells Not Reportable 09/27/16 23:09 Ovalocytes Not Reportable 09/27/16 23:09 Helmet Cells Not Reportable 09/27/16 23:09 [place] Bodies Not Reportable 09/27/16 23:09 [place] Rings Not Reportable 09/27/16 23:09 [place] Cells Not Reportable 09/27/16 23:09 Bite Cells Not Reportable 09/27/16 23:09 Crenated Cell Not Reportable 09/27/16 23:09 Elliptocytes Not Reportable 09/27/16 23:09 Acanthocytes (Spur) Not Reportable 09/27/16 23:09 Rouleaux Not Reportable 09/27/16 23:09 Hemoglobin C Crystals Not Reportable 09/27/16 23:09 Schistocytes Not Reportable 09/27/16 23:09 Malaria parasites Not Reportable 09/27/16 23:09 [place]anga Bodies Not Reportable 09/27/16 23:09 Hem Pathologist Commnt No 09/27/16 23:09 PT 13.1 Sec. (12.2-14.9) 09/25/16 20:32 INR 0.95 (0.87-1.13) 09/25/16 20:32 APTT 30.6 Sec. (24.2-36.6) 09/25/16 20:32 POC ABG pH 7.422 (7.35-7.45) 09/27/16 23:13 POC ABG pCO2 32.8 (35-45) L 09/27/16 23:13 POC ABG pO2 58 (80-105) L 09/27/16 23:13 POC ABG HCO3 21.4 09/27/16 23:13 POC ABG Total CO2 22 09/27/16 23:13 POC ABG O2 Sat 90 09/27/16 23:13 POC ABG Base Excess -3 09/27/16 23:13 FiO2 21 % 09/27/16 23:13 Sodium 138 mmol/L (137-145) 10/02/16 05:42 Potassium 4.8 mmol/L (3.6-5.0) 10/02/16 05:42 Chloride 102.2 mmol/L (98-107) 10/02/16 05:42 Carbon Dioxide 21 mmol/L (22-30) L 10/02/16 05:42 Anion Gap 20 mmol/L 10/02/16 05:42 BUN 13 mg/dL (7-17) 10/02/16 05:42 Creatinine 0.9 mg/dL (0.7-1.2) 10/02/16 05:42 Estimated GFR > 60 ml/min 10/02/16 05:42 BUN/Creatinine Ratio 14.44 % 10/02/16 05:42 Glucose 101 mg/dL (65-100) H 10/02/16 05:42 POC Glucose 102 (70-105) 09/30/16 08:03 Calcium 8.8 mg/dL (8.4-10.2) 10/02/16 05:42 Ammonia 41.0 umol/L (25-60) 10/01/16 05:36 Total Creatine Kinase 674 units/L (30-135) H 09/28/16 06:04 CK-MB (CK-2) 5.9 ng/mL (0.0-4.0) H 09/28/16 06:04 CK-MB (CK-2) Rel Index 0.8 (0-4) 09/28/16 06:04 Troponin T 0.098 ng/mL (0.00-0.029) H 09/28/16 06:04 Triglycerides 115 mg/dL (2-149) 09/27/16 06:31 Cholesterol 284 mg/dL (50-199) H 09/27/16 06:31 LDL Cholesterol Direct 203 mg/dL (50-130) H 09/27/16 06:31 HDL Cholesterol 58 mg/dL (40-59) 09/27/16 06:31 Cholesterol/HDL Ratio 4.89 % 09/27/16 06:31 TSH 1.310 mlU/mL (0.270-4.200) 09/30/16 13:23
--- NOTE | 2016-10-02 16:34 | Cat Scan Report ---
CT HEAD WITHOUT CONTRAST INDICATION: Altered mental status. COMPARISON: 09/29/2016. FINDINGS: Noncontrast head CT demonstrate stable ventricles and sulci with mild ex-vacuo dilatation of the left frontal horn with an adjacent 1 cm left basal ganglia lacunar infarct on axial image 27, series 2. Moderate periventricular and white matter hypodense small vessel ischemic disease again noted. No definite acute hemorrhage, mass effect or midline shift. No abnormal extra axial fluid collections. Normal posterior fossa with preserved basilar cisterns. Unremarkable eye globes. Moderate right posterior ethmoid and chronic right sphenoid sinus mucoperiosteal thickening again seen. Hypoplastic/aplastic bilateral frontal sinuses. Clear remainder imaged paranasal sinuses and bilateral temporal bones and right mastoid air cells with left mastoid tip not well pneumatized. Atherosclerotic ICA calcifications. Intact calvarium and scalp. Numerous radiopaque dental material. CONCLUSION: Age-appropriate atrophy with extensive microvascular changes, few lacunar infarcts and sinus disease including chronic right sphenoid sinusitis again noted, as described. Please note that this fourth head CT since 09/25/2016 demonstrates no significant interval change with a 1 cm acute pontine infarct on the right appreciated on MRI. Thank you for the opportunity to participate in this patient's care.
[2016-10-03 06:27] LABS: Basophils % (Auto) 0.7 % (0.0-1.8); Hemoglobin 12.1 gm/dl (10.1-14.3); Mean Corpuscular HGB Conc 33 % (30-34); Mean Corpuscular Hemoglobin 27 pg (28-32); Mean Corpuscular Volume 83 fl (79-97); Platelet Count 181 K/mm3 (140-440); Red Blood Count 4.47 M/mm3 (3.65-5.03); Red Cell Distribution Width 14.6 % (13.2-15.2); White Blood Count 5.3 K/mm3 (4.5-11.0)
[2016-10-03 06:46] LABS: Anion Gap 16 mmol/L; BUN/Creatinine Ratio 18.75; Blood Urea Nitrogen 15 mg/dL (7-17); Calcium 9.2 mg/dL (8.4-10.2); Carbon Dioxide 26 mmol/L (22-30); Chloride 103.6 mmol/L (98-107); Glucose 98 mg/dL (65-100); Potassium 4.4 mmol/L (3.6-5.0); Sodium 141 mmol/L (137-145)
[2016-10-03] MEDS: NORMODYNE PO SCH ×2 (09:47→22:37)
[2016-10-03] MEDS: ASPIRIN PO SCH (09:48)
[2016-10-03] MEDS: NORVASC PO SCH (09:49)
[2016-10-03] MEDS: LOVENOX SUB-Q SCH (09:49)
[2016-10-03] MEDS: ZESTRIL PO SCH (09:57)
[2016-10-03] MEDS: PLAVIX PO SCH (09:57)
--- NOTE | 2016-10-03 16:44 | Fluoroscopy Report ---
MODIFIED BARIUM SWALLOW: A modified barium swallow was performed with the aid of the speech pathologist. Fluoroscopic observation with multiple consistencies of barium was performed. Please see speech pathologist's notes for impression.
--- NOTE | 2016-10-03 17:19 | Progress Note ---
Assessment and Plan Assessment and plan: Acute CVA. MRI revealed acute pontine infarct. Echocardiogram revealed mild concentric left ventricular hypertrophy with an EF of 55%. Left ventricular diastolic filling abnormalities consistent with impaired relaxation. Neurology following. Continue neurochecks. Patient appears to have expressive aphasia. Encephalopathy. Etiology may be secondary to #1. Left critical internal carotid stenosis. CT scan reveals essentially 99% stenosis. Vascular surgery will wait 2-3 weeks prior to intervention in setting of acute CVA. Pt is currently at moderate cardiovascular risk for CEA. Cardiology to consider lexiscan MPI stress test for risk stratification following carotid intervention. Patient is on Plavix per vascular surgery recommendations. Syncope. Patient with syncopal episode on 09/27/16. Vascular surgery reevaluated CTA of chest and appears to have no evidence of PE as per discussion with radiologist. No anticoagulation recommended at this time Accelerated hypertension. Better control. Continue current medications. DVT prophylaxis. Continue Lovenox. Disposition: Pending acute rehabilitation placement. History Interval history: Patient was seen and evaluated, patient doesn't have any new complaints. Hospitalist Physical - Physical exam Narrative exam: Not in cardiopulmonary distress. The patient appeared well nourished and normally developed. Vital signs as documented. Head exam is unremarkable. No scleral icterus . Neck is without jugular venous distension, thyromegaly, or carotid bruits. Lungs are clear to auscultation. Cardiac exam reveals regular rate and Rhythm. First and second heart sounds normal. No murmurs, rubs or gallops. Abdominal exam reveals normal bowel sounds, no masses, no organomegaly and no aortic enlargement. Extremities are nonedematous and both femoral and pedal pulses are normal. VP PUBLIC RELATIONS: Alert and oriented 3. Mild weakness of the left upper extremity. - Constitutional Vitals: Temp Pulse Resp BP Pulse Ox 98.1 F 63 20 140/70 100 10/03/16 07:38 10/03/16 09:49 10/03/16 07:38 10/03/16 09:57 10/03/16 07:38 General appearance: Present: no acute distress Results - Labs CBC & Chem 7: 10/03/16 05:53 10/03/16 05:53 Labs: Laboratory Last Values WBC 5.3 K/mm3 (4.5-11.0) 10/03/16 05:53 RBC 4.47 M/mm3 (3.65-5.03) 10/03/16 05:53 Hgb 12.1 gm/dl (10.1-14.3) 10/03/16 05:53 Hct 37.0 % (30.3-42.9) 10/03/16 05:53 MCV 83 fl (79-97) 10/03/16 05:53 MCH 27 pg (28-32) L 10/03/16 05:53 MCHC 33 % (30-34) 10/03/16 05:53 RDW 14.6 % (13.2-15.2) 10/03/16 05:53 Plt Count 181 K/mm3 (140-440) 10/03/16 05:53 Lymph % (Auto) 38.3 % (13.4-35.0) H 10/03/16 05:53 [place] % (Auto) 9.8 % (0.0-7.3) H 10/03/16 05:53 Eos % (Auto) 3.0 % (0.0-4.3) 10/03/16 05:53 Baso % (Auto) 0.7 % (0.0-1.8) 10/03/16 05:53 Lymph # 2.0 K/mm3 (1.2-5.4) 10/03/16 05:53 [place] # 0.5 K/mm3 (0.0-0.8) 10/03/16 05:53 Eos # 0.2 K/mm3 (0.0-0.4) 10/03/16 05:53 Baso # 0.0 K/mm3 (0.0-0.1) 10/03/16 05:53 Add Manual Diff Complete 09/27/16 23:09 Total Counted 100 09/27/16 23:09 Seg Neutrophils % 48.2 % (40.0-70.0) 10/03/16 05:53 Seg Neuts % (Manual) 52.0 % (40.0-70.0) 09/27/16 23:09 Band Neutrophils % 0 % 09/27/16 23:09 Lymphocytes % (Manual) 33.0 % (13.4-35.0) 09/27/16 23:09 Reactive Lymphs % (Man) 0 % 09/27/16 23:09 Monocytes % (Manual) 13.0 % (0.0-7.3) H 09/27/16 23:09 Eosinophils % (Manual) 0 % (0.0-4.3) 09/27/16 23:09 Basophils % (Manual) 0 % (0.0-1.8) 09/27/16 23:09 Metamyelocytes % 2.0 % 09/27/16 23:09 Myelocytes % 0 % 09/27/16 23:09 Promyelocytes % 0 % 09/27/16 23:09 Blast Cells % 0 % 09/27/16 23:09 Nucleated RBC % Not Reportable 09/27/16 23:09 Seg Neutrophils # 2.5 K/mm3 (1.8-7.7) 10/03/16 05:53 Seg Neutrophils # Man 5.9 K/mm3 (1.8-7.7) 09/27/16 23:09 Band Neutrophils # 0.0 K/mm3 09/27/16 23:09 Lymphocytes # (Manual) 3.8 K/mm3 (1.2-5.4) 09/27/16 23:09 Abs React Lymphs (Man) 0.0 K/mm3 09/27/16 23:09 Monocytes # (Manual) 1.5 K/mm3 (0.0-0.8) H 09/27/16 23:09 Eosinophils # (Manual) 0.0 K/mm3 (0.0-0.4) 09/27/16 23:09 Basophils # (Manual) 0.0 K/mm3 (0.0-0.1) 09/27/16 23:09 Metamyelocytes # 0.2 K/mm3 09/27/16 23:09 Myelocytes # 0.0 K/mm3 09/27/16 23:09 Promyelocytes # 0.0 K/mm3 09/27/16 23:09 Blast Cells # 0.0 K/mm3 09/27/16 23:09 WBC Morphology Not Reportable 09/27/16 23:09 Hypersegmented Neuts Not Reportable 09/27/16 23:09 Hyposegmented Neuts Not Reportable 09/27/16 23:09 Hypogranular Neuts Not Reportable 09/27/16 23:09 Smudge Cells Not Reportable 09/27/16 23:09 Toxic Granulation Not Reportable 09/27/16 23:09 Toxic Vacuolation Not Reportable 09/27/16 23:09 Dohle Bodies Not Reportable 09/27/16 23:09 Pelger-Huet Anomaly Not Reportable 09/27/16 23:09 Toby Rods Not Reportable 09/27/16 23:09 Platelet Estimate Appears normal 09/27/16 23:09 Clumped Platelets Not Reportable 09/27/16 23:09 Plt Clumps, EDTA Not Reportable 09/27/16 23:09 Large Platelets Not Reportable 09/27/16 23:09 Giant Platelets Few 09/27/16 23:09 Platelet Satelliting Not Reportable 09/27/16 23:09 Plt Morphology Comment Not Reportable 09/27/16 23:09 RBC Morphology Not Reportable 09/27/16 23:09 Dimorphic RBCs Not Reportable 09/27/16 23:09 Polychromasia Not Reportable 09/27/16 23:09 Hypochromasia 1+ 09/27/16 23:09 Poikilocytosis Not Reportable 09/27/16 23:09 Anisocytosis 1+ 09/27/16 23:09 Microcytosis Not Reportable 09/27/16 23:09 Macrocytosis Not Reportable 09/27/16 23:09 Spherocytes Not Reportable 09/27/16 23:09 Pappenheimer Bodies Not Reportable 09/27/16 23:09 Sickle Cells Not Reportable 09/27/16 23:09 Target Cells Not Reportable 09/27/16 23:09 Tear Drop Cells Not Reportable 09/27/16 23:09 Ovalocytes Not Reportable 09/27/16 23:09 Helmet Cells Not Reportable 09/27/16 23:09 [place] Bodies Not Reportable 09/27/16 23:09 [place] Rings Not Reportable 09/27/16 23:09 [place] Cells Not Reportable 09/27/16 23:09 Bite Cells Not Reportable 09/27/16 23:09 Crenated Cell Not Reportable 09/27/16 23:09 Elliptocytes Not Reportable 09/27/16 23:09 Acanthocytes (Spur) Not Reportable 09/27/16 23:09 Rouleaux Not Reportable 09/27/16 23:09 Hemoglobin C Crystals Not Reportable 09/27/16 23:09 Schistocytes Not Reportable 09/27/16 23:09 Malaria parasites Not Reportable 09/27/16 23:09 Ganga Bodies Not Reportable 09/27/16 23:09 Hem Pathologist Commnt No 09/27/16 23:09 PT 13.1 Sec. (12.2-14.9) 09/25/16 20:32 INR 0.95 (0.87-1.13) 09/25/16 20:32 APTT 30.6 Sec. (24.2-36.6) 09/25/16 20:32 POC ABG pH 7.422 (7.35-7.45) 09/27/16 23:13 POC ABG pCO2 32.8 (35-45) L 09/27/16 23:13 POC ABG pO2 58 (80-105) L 09/27/16 23:13 POC ABG HCO3 21.4 09/27/16 23:13 POC ABG Total CO2 22 09/27/16 23:13 POC ABG O2 Sat 90 09/27/16 23:13 POC ABG Base Excess -3 09/27/16 23:13 FiO2 21 % 09/27/16 23:13 Sodium 141 mmol/L (137-145) 10/03/16 05:53 Potassium 4.4 mmol/L (3.6-5.0) 10/03/16 05:53 Chloride 103.6 mmol/L (98-107) 10/03/16 05:53 Carbon Dioxide 26 mmol/L (22-30) 10/03/16 05:53 Anion Gap 16 mmol/L 10/03/16 05:53 BUN 15 mg/dL (7-17) 10/03/16 05:53 Creatinine 0.8 mg/dL (0.7-1.2) 10/03/16 05:53 Estimated GFR > 60 ml/min 10/03/16 05:53 BUN/Creatinine Ratio 18.75 % 10/03/16 05:53 Glucose 98 mg/dL (65-100) 10/03/16 05:53 POC Glucose 102 (70-105) 09/30/16 08:03 Calcium 9.2 mg/dL (8.4-10.2) 10/03/16 05:53 Ammonia 41.0 umol/L (25-60) 10/01/16 05:36 Total Creatine Kinase 674 units/L (30-135) H 09/28/16 06:04 CK-MB (CK-2) 5.9 ng/mL (0.0-4.0) H 09/28/16 06:04 CK-MB (CK-2) Rel Index 0.8 (0-4) 09/28/16 06:04 Troponin T 0.098 ng/mL (0.00-0.029) H 09/28/16 06:04 Triglycerides 115 mg/dL (2-149) 09/27/16 06:31 Cholesterol 284 mg/dL (50-199) H 09/27/16 06:31 LDL Cholesterol Direct 203 mg/dL (50-130) H 09/27/16 06:31 HDL Cholesterol 58 mg/dL (40-59) 09/27/16 06:31 Cholesterol/HDL Ratio 4.89 % 09/27/16 06:31 TSH 1.310 mlU/mL (0.270-4.200) 09/30/16 13:23
[2016-10-04] MEDS: ASPIRIN PO SCH (11:53)
[2016-10-04] MEDS: LOVENOX SUB-Q SCH (11:54)
[2016-10-04] MEDS: NORVASC PO SCH (11:54)
[2016-10-04] MEDS: PLAVIX PO SCH (11:55)
[2016-10-04] MEDS: NORMODYNE PO SCH ×2 (11:56→22:18)
[2016-10-04] MEDS: ZESTRIL PO SCH (11:56)
--- NOTE | 2016-10-04 17:45 | Progress Note ---
Assessment and Plan Assessment and plan: Acute CVA. MRI revealed acute pontine infarct. Echocardiogram revealed mild concentric left ventricular hypertrophy with an EF of 55%. Left ventricular diastolic filling abnormalities consistent with impaired relaxation. Neurology following. Continue neurochecks. Patient appears to have expressive aphasia. Encephalopathy. Etiology may be secondary to #1. Left critical internal carotid stenosis. CT scan reveals essentially 99% stenosis. Vascular surgery will wait 2-3 weeks prior to intervention in setting of acute CVA. Pt is currently at moderate cardiovascular risk for CEA. Cardiology to consider lexiscan MPI stress test for risk stratification following carotid intervention. Patient is on Plavix per vascular surgery recommendations. Syncope. Patient with syncopal episode on 09/27/16. Vascular surgery reevaluated CTA of chest and appears to have no evidence of PE as per discussion with radiologist. No anticoagulation recommended at this time Accelerated hypertension. Better control. Continue current medications. DVT prophylaxis. Continue Lovenox. Disposition: Pending acute rehabilitation placement. History Interval history: Patient was seen and evaluated, patient doesn't have any new complaints. Hospitalist Physical - Physical exam Narrative exam: Not in cardiopulmonary distress. The patient appeared well nourished and normally developed. Vital signs as documented. Head exam is unremarkable. No scleral icterus . Neck is without jugular venous distension, thyromegaly, or carotid bruits. Lungs are clear to auscultation. Cardiac exam reveals regular rate and Rhythm. First and second heart sounds normal. No murmurs, rubs or gallops. Abdominal exam reveals normal bowel sounds, no masses, no organomegaly and no aortic enlargement. Extremities are nonedematous and both femoral and pedal pulses are normal. 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 Mild weakness of the left upper extremity. - Constitutional Vitals: Temp Pulse Resp BP Pulse Ox 98.6 F 66 18 157/73 98 10/04/16 08:56 10/04/16 11:54 10/04/16 08:56 10/04/16 11:54 10/04/16 08:56 General appearance: Present: no acute distress Results - Labs CBC & Chem 7: 10/03/16 05:53 10/03/16 05:53 Labs: Laboratory Last Values WBC 5.3 K/mm3 (4.5-11.0) 10/03/16 05:53 RBC 4.47 M/mm3 (3.65-5.03) 10/03/16 05:53 Hgb 12.1 gm/dl (10.1-14.3) 10/03/16 05:53 Hct 37.0 % (30.3-42.9) 10/03/16 05:53 MCV 83 fl (79-97) 10/03/16 05:53 MCH 27 pg (28-32) L 10/03/16 05:53 MCHC 33 % (30-34) 10/03/16 05:53 RDW 14.6 % (13.2-15.2) 10/03/16 05:53 Plt Count 181 K/mm3 (140-440) 10/03/16 05:53 Lymph % (Auto) 38.3 % (13.4-35.0) H 10/03/16 05:53 [place] % (Auto) 9.8 % (0.0-7.3) H 10/03/16 05:53 Eos % (Auto) 3.0 % (0.0-4.3) 10/03/16 05:53 Baso % (Auto) 0.7 % (0.0-1.8) 10/03/16 05:53 Lymph # 2.0 K/mm3 (1.2-5.4) 10/03/16 05:53 [place] # 0.5 K/mm3 (0.0-0.8) 10/03/16 05:53 Eos # 0.2 K/mm3 (0.0-0.4) 10/03/16 05:53 Baso # 0.0 K/mm3 (0.0-0.1) 10/03/16 05:53 Add Manual Diff Complete 09/27/16 23:09 Total Counted 100 09/27/16 23:09 Seg Neutrophils % 48.2 % (40.0-70.0) 10/03/16 05:53 Seg Neuts % (Manual) 52.0 % (40.0-70.0) 09/27/16 23:09 Band Neutrophils % 0 % 09/27/16 23:09 Lymphocytes % (Manual) 33.0 % (13.4-35.0) 09/27/16 23:09 Reactive Lymphs % (Man) 0 % 09/27/16 23:09 Monocytes % (Manual) 13.0 % (0.0-7.3) H 09/27/16 23:09 Eosinophils % (Manual) 0 % (0.0-4.3) 09/27/16 23:09 Basophils % (Manual) 0 % (0.0-1.8) 09/27/16 23:09 Metamyelocytes % 2.0 % 09/27/16 23:09 Myelocytes % 0 % 09/27/16 23:09 Promyelocytes % 0 % 09/27/16 23:09 Blast Cells % 0 % 09/27/16 23:09 Nucleated RBC % Not Reportable 09/27/16 23:09 Seg Neutrophils # 2.5 K/mm3 (1.8-7.7) 10/03/16 05:53 Seg Neutrophils # Man 5.9 K/mm3 (1.8-7.7) 09/27/16 23:09 Band Neutrophils # 0.0 K/mm3 09/27/16 23:09 Lymphocytes # (Manual) 3.8 K/mm3 (1.2-5.4) 09/27/16 23:09 Abs React Lymphs (Man) 0.0 K/mm3 09/27/16 23:09 Monocytes # (Manual) 1.5 K/mm3 (0.0-0.8) H 09/27/16 23:09 Eosinophils # (Manual) 0.0 K/mm3 (0.0-0.4) 09/27/16 23:09 Basophils # (Manual) 0.0 K/mm3 (0.0-0.1) 09/27/16 23:09 Metamyelocytes # 0.2 K/mm3 09/27/16 23:09 Myelocytes # 0.0 K/mm3 09/27/16 23:09 Promyelocytes # 0.0 K/mm3 09/27/16 23:09 Blast Cells # 0.0 K/mm3 09/27/16 23:09 WBC Morphology Not Reportable 09/27/16 23:09 Hypersegmented Neuts Not Reportable 09/27/16 23:09 Hyposegmented Neuts Not Reportable 09/27/16 23:09 Hypogranular Neuts Not Reportable 09/27/16 23:09 Smudge Cells Not Reportable 09/27/16 23:09 Toxic Granulation Not Reportable 09/27/16 23:09 Toxic Vacuolation Not Reportable 09/27/16 23:09 Dohle Bodies Not Reportable 09/27/16 23:09 Pelger-Huet Anomaly Not Reportable 09/27/16 23:09 Toby Rods Not Reportable 09/27/16 23:09 Platelet Estimate Appears normal 09/27/16 23:09 Clumped Platelets Not Reportable 09/27/16 23:09 Plt Clumps, EDTA Not Reportable 09/27/16 23:09 Large Platelets Not Reportable 09/27/16 23:09 Giant Platelets Few 09/27/16 23:09 Platelet Satelliting Not Reportable 09/27/16 23:09 Plt Morphology Comment Not Reportable 09/27/16 23:09 RBC Morphology Not Reportable 09/27/16 23:09 Dimorphic RBCs Not Reportable 09/27/16 23:09 Polychromasia Not Reportable 09/27/16 23:09 Hypochromasia 1+ 09/27/16 23:09 Poikilocytosis Not Reportable 09/27/16 23:09 Anisocytosis 1+ 09/27/16 23:09 Microcytosis Not Reportable 09/27/16 23:09 Macrocytosis Not Reportable 09/27/16 23:09 Spherocytes Not Reportable 09/27/16 23:09 Pappenheimer Bodies Not Reportable 09/27/16 23:09 Sickle Cells Not Reportable 09/27/16 23:09 Target Cells Not Reportable 09/27/16 23:09 Tear Drop Cells Not Reportable 09/27/16 23:09 Ovalocytes Not Reportable 09/27/16 23:09 Helmet Cells Not Reportable 09/27/16 23:09 [place] Bodies Not Reportable 09/27/16 23:09 [place] Rings Not Reportable 09/27/16 23:09 [place] Cells Not Reportable 09/27/16 23:09 Bite Cells Not Reportable 09/27/16 23:09 Crenated Cell Not Reportable 09/27/16 23:09 Elliptocytes Not Reportable 09/27/16 23:09 Acanthocytes (Spur) Not Reportable 09/27/16 23:09 Rouleaux Not Reportable 09/27/16 23:09 Hemoglobin C Crystals Not Reportable 09/27/16 23:09 Schistocytes Not Reportable 09/27/16 23:09 Malaria parasites Not Reportable 09/27/16 23:09 Ganga Bodies Not Reportable 09/27/16 23:09 Hem Pathologist Commnt No 09/27/16 23:09 PT 13.1 Sec. (12.2-14.9) 09/25/16 20:32 INR 0.95 (0.87-1.13) 09/25/16 20:32 APTT 30.6 Sec. (24.2-36.6) 09/25/16 20:32 POC ABG pH 7.422 (7.35-7.45) 09/27/16 23:13 POC ABG pCO2 32.8 (35-45) L 09/27/16 23:13 POC ABG pO2 58 (80-105) L 09/27/16 23:13 POC ABG HCO3 21.4 09/27/16 23:13 POC ABG Total CO2 22 09/27/16 23:13 POC ABG O2 Sat 90 09/27/16 23:13 POC ABG Base Excess -3 09/27/16 23:13 FiO2 21 % 09/27/16 23:13 Sodium 141 mmol/L (137-145) 10/03/16 05:53 Potassium 4.4 mmol/L (3.6-5.0) 10/03/16 05:53 Chloride 103.6 mmol/L (98-107) 10/03/16 05:53 Carbon Dioxide 26 mmol/L (22-30) 10/03/16 05:53 Anion Gap 16 mmol/L 10/03/16 05:53 BUN 15 mg/dL (7-17) 10/03/16 05:53 Creatinine 0.8 mg/dL (0.7-1.2) 10/03/16 05:53 Estimated GFR > 60 ml/min 10/03/16 05:53 BUN/Creatinine Ratio 18.75 % 10/03/16 05:53 Glucose 98 mg/dL (65-100) 10/03/16 05:53 POC Glucose 102 (70-105) 09/30/16 08:03 Calcium 9.2 mg/dL (8.4-10.2) 10/03/16 05:53 Ammonia 41.0 umol/L (25-60) 10/01/16 05:36 Total Creatine Kinase 674 units/L (30-135) H 09/28/16 06:04 CK-MB (CK-2) 5.9 ng/mL (0.0-4.0) H 09/28/16 06:04 CK-MB (CK-2) Rel Index 0.8 (0-4) 09/28/16 06:04 Troponin T 0.098 ng/mL (0.00-0.029) H 09/28/16 06:04 Triglycerides 115 mg/dL (2-149) 09/27/16 06:31 Cholesterol 284 mg/dL (50-199) H 09/27/16 06:31 LDL Cholesterol Direct 203 mg/dL (50-130) H 09/27/16 06:31 HDL Cholesterol 58 mg/dL (40-59) 09/27/16 06:31 Cholesterol/HDL Ratio 4.89 % 09/27/16 06:31 TSH 1.310 mlU/mL (0.270-4.200) 09/30/16 13:23
[2016-10-04] MEDS: DULCOLAX PR PRN (18:18)
[2016-10-05] MEDS: ASPIRIN PO SCH (09:15)
[2016-10-05] MEDS: ZESTRIL PO SCH (09:15)
[2016-10-05] MEDS: NORVASC PO SCH (09:15)
[2016-10-05] MEDS: NORMODYNE PO SCH ×2 (09:15→21:37)
[2016-10-05] MEDS: PLAVIX PO SCH (09:15)
[2016-10-05] MEDS: LOVENOX SUB-Q SCH (09:16)
--- NOTE | 2016-10-05 16:09 | Progress Note ---
Assessment and Plan Assessment and plan: Acute CVA. MRI revealed acute pontine infarct. Echocardiogram revealed mild concentric left ventricular hypertrophy with an EF of 55%. Left ventricular diastolic filling abnormalities consistent with impaired relaxation. Neurology following. Continue neurochecks. Patient appears to have expressive aphasia. Encephalopathy. Etiology may be secondary to #1. Left critical internal carotid stenosis. CT scan reveals essentially 99% stenosis. Vascular surgery will wait 2-3 weeks prior to intervention in setting of acute CVA. Pt is currently at moderate cardiovascular risk for CEA. Cardiology to consider lexiscan MPI stress test for risk stratification following carotid intervention. Patient is on Plavix per vascular surgery recommendations. Syncope. Patient with syncopal episode on 09/27/16. Vascular surgery reevaluated CTA of chest and appears to have no evidence of PE as per discussion with radiologist. No anticoagulation recommended at this time Accelerated hypertension. Better control. Continue current medications. DVT prophylaxis. Continue Lovenox. Disposition: Pending acute rehabilitation placement. History Interval history: Patient was seen and evaluated, patient doesn't have any new complaints. Hospitalist Physical - Physical exam Narrative exam: Not in cardiopulmonary distress. The patient appeared well nourished and normally developed. Vital signs as documented. Head exam is unremarkable. No scleral icterus . Neck is without jugular venous distension, thyromegaly, or carotid bruits. Lungs are clear to auscultation. Cardiac exam reveals regular rate and Rhythm. Abdominal exam reveals normal bowel sounds, no masses. Extremities are nonedematous and both femoral and pedal pulses are normal. 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 - Constitutional Vitals: Temp Pulse Resp BP Pulse Ox 99.2 F 62 20 157/85 98 10/05/16 08:40 10/05/16 10:00 10/05/16 10:00 10/05/16 08:40 10/05/16 10:00 General appearance: Present: no acute distress Results - Labs CBC & Chem 7: 10/03/16 05:53 10/03/16 05:53 Labs: Laboratory Last Values WBC 5.3 K/mm3 (4.5-11.0) 10/03/16 05:53 RBC 4.47 M/mm3 (3.65-5.03) 10/03/16 05:53 Hgb 12.1 gm/dl (10.1-14.3) 10/03/16 05:53 Hct 37.0 % (30.3-42.9) 10/03/16 05:53 MCV 83 fl (79-97) 10/03/16 05:53 MCH 27 pg (28-32) L 10/03/16 05:53 MCHC 33 % (30-34) 10/03/16 05:53 RDW 14.6 % (13.2-15.2) 10/03/16 05:53 Plt Count 181 K/mm3 (140-440) 10/03/16 05:53 Lymph % (Auto) 38.3 % (13.4-35.0) H 10/03/16 05:53 [place] % (Auto) 9.8 % (0.0-7.3) H 10/03/16 05:53 Eos % (Auto) 3.0 % (0.0-4.3) 10/03/16 05:53 Baso % (Auto) 0.7 % (0.0-1.8) 10/03/16 05:53 Lymph # 2.0 K/mm3 (1.2-5.4) 10/03/16 05:53 [place] # 0.5 K/mm3 (0.0-0.8) 10/03/16 05:53 Eos # 0.2 K/mm3 (0.0-0.4) 10/03/16 05:53 Baso # 0.0 K/mm3 (0.0-0.1) 10/03/16 05:53 Add Manual Diff Complete 09/27/16 23:09 Total Counted 100 09/27/16 23:09 Seg Neutrophils % 48.2 % (40.0-70.0) 10/03/16 05:53 Seg Neuts % (Manual) 52.0 % (40.0-70.0) 09/27/16 23:09 Band Neutrophils % 0 % 09/27/16 23:09 Lymphocytes % (Manual) 33.0 % (13.4-35.0) 09/27/16 23:09 Reactive Lymphs % (Man) 0 % 09/27/16 23:09 Monocytes % (Manual) 13.0 % (0.0-7.3) H 09/27/16 23:09 Eosinophils % (Manual) 0 % (0.0-4.3) 09/27/16 23:09 Basophils % (Manual) 0 % (0.0-1.8) 09/27/16 23:09 Metamyelocytes % 2.0 % 09/27/16 23:09 Myelocytes % 0 % 09/27/16 23:09 Promyelocytes % 0 % 09/27/16 23:09 Blast Cells % 0 % 09/27/16 23:09 Nucleated RBC % Not Reportable 09/27/16 23:09 Seg Neutrophils # 2.5 K/mm3 (1.8-7.7) 10/03/16 05:53 Seg Neutrophils # Man 5.9 K/mm3 (1.8-7.7) 09/27/16 23:09 Band Neutrophils # 0.0 K/mm3 09/27/16 23:09 Lymphocytes # (Manual) 3.8 K/mm3 (1.2-5.4) 09/27/16 23:09 Abs React Lymphs (Man) 0.0 K/mm3 09/27/16 23:09 Monocytes # (Manual) 1.5 K/mm3 (0.0-0.8) H 09/27/16 23:09 Eosinophils # (Manual) 0.0 K/mm3 (0.0-0.4) 09/27/16 23:09 Basophils # (Manual) 0.0 K/mm3 (0.0-0.1) 09/27/16 23:09 Metamyelocytes # 0.2 K/mm3 09/27/16 23:09 Myelocytes # 0.0 K/mm3 09/27/16 23:09 Promyelocytes # 0.0 K/mm3 09/27/16 23:09 Blast Cells # 0.0 K/mm3 09/27/16 23:09 WBC Morphology Not Reportable 09/27/16 23:09 Hypersegmented Neuts Not Reportable 09/27/16 23:09 Hyposegmented Neuts Not Reportable 09/27/16 23:09 Hypogranular Neuts Not Reportable 09/27/16 23:09 Smudge Cells Not Reportable 09/27/16 23:09 Toxic Granulation Not Reportable 09/27/16 23:09 Toxic Vacuolation Not Reportable 09/27/16 23:09 Dohle Bodies Not Reportable 09/27/16 23:09 Pelger-Huet Anomaly Not Reportable 09/27/16 23:09 Toby Rods Not Reportable 09/27/16 23:09 Platelet Estimate Appears normal 09/27/16 23:09 Clumped Platelets Not Reportable 09/27/16 23:09 Plt Clumps, EDTA Not Reportable 09/27/16 23:09 Large Platelets Not Reportable 09/27/16 23:09 Giant Platelets Few 09/27/16 23:09 Platelet Satelliting Not Reportable 09/27/16 23:09 Plt Morphology Comment Not Reportable 09/27/16 23:09 RBC Morphology Not Reportable 09/27/16 23:09 Dimorphic RBCs Not Reportable 09/27/16 23:09 Polychromasia Not Reportable 09/27/16 23:09 Hypochromasia 1+ 09/27/16 23:09 Poikilocytosis Not Reportable 09/27/16 23:09 Anisocytosis 1+ 09/27/16 23:09 Microcytosis Not Reportable 09/27/16 23:09 Macrocytosis Not Reportable 09/27/16 23:09 Spherocytes Not Reportable 09/27/16 23:09 Pappenheimer Bodies Not Reportable 09/27/16 23:09 Sickle Cells Not Reportable 09/27/16 23:09 Target Cells Not Reportable 09/27/16 23:09 Tear Drop Cells Not Reportable 09/27/16 23:09 Ovalocytes Not Reportable 09/27/16 23:09 Helmet Cells Not Reportable 09/27/16 23:09 [place] Bodies Not Reportable 09/27/16 23:09 [place] Rings Not Reportable 09/27/16 23:09 [place] Cells Not Reportable 09/27/16 23:09 Bite Cells Not Reportable 09/27/16 23:09 Crenated Cell Not Reportable 09/27/16 23:09 Elliptocytes Not Reportable 09/27/16 23:09 Acanthocytes (Spur) Not Reportable 09/27/16 23:09 Rouleaux Not Reportable 09/27/16 23:09 Hemoglobin C Crystals Not Reportable 09/27/16 23:09 Schistocytes Not Reportable 09/27/16 23:09 Malaria parasites Not Reportable 09/27/16 23:09 Ganga Bodies Not Reportable 09/27/16 23:09 Hem Pathologist Commnt No 09/27/16 23:09 PT 13.1 Sec. (12.2-14.9) 09/25/16 20:32 INR 0.95 (0.87-1.13) 09/25/16 20:32 APTT 30.6 Sec. (24.2-36.6) 09/25/16 20:32 POC ABG pH 7.422 (7.35-7.45) 09/27/16 23:13 POC ABG pCO2 32.8 (35-45) L 09/27/16 23:13 POC ABG pO2 58 (80-105) L 09/27/16 23:13 POC ABG HCO3 21.4 09/27/16 23:13 POC ABG Total CO2 22 09/27/16 23:13 POC ABG O2 Sat 90 09/27/16 23:13 POC ABG Base Excess -3 09/27/16 23:13 FiO2 21 % 09/27/16 23:13 Sodium 141 mmol/L (137-145) 10/03/16 05:53 Potassium 4.4 mmol/L (3.6-5.0) 10/03/16 05:53 Chloride 103.6 mmol/L (98-107) 10/03/16 05:53 Carbon Dioxide 26 mmol/L (22-30) 10/03/16 05:53 Anion Gap 16 mmol/L 10/03/16 05:53 BUN 15 mg/dL (7-17) 10/03/16 05:53 Creatinine 0.8 mg/dL (0.7-1.2) 10/03/16 05:53 Estimated GFR > 60 ml/min 10/03/16 05:53 BUN/Creatinine Ratio 18.75 % 10/03/16 05:53 Glucose 98 mg/dL (65-100) 10/03/16 05:53 POC Glucose 102 (70-105) 09/30/16 08:03 Calcium 9.2 mg/dL (8.4-10.2) 10/03/16 05:53 Ammonia 41.0 umol/L (25-60) 10/01/16 05:36 Total Creatine Kinase 674 units/L (30-135) H 09/28/16 06:04 CK-MB (CK-2) 5.9 ng/mL (0.0-4.0) H 09/28/16 06:04 CK-MB (CK-2) Rel Index 0.8 (0-4) 09/28/16 06:04 Troponin T 0.098 ng/mL (0.00-0.029) H 09/28/16 06:04 Triglycerides 115 mg/dL (2-149) 09/27/16 06:31 Cholesterol 284 mg/dL (50-199) H 09/27/16 06:31 LDL Cholesterol Direct 203 mg/dL (50-130) H 09/27/16 06:31 HDL Cholesterol 58 mg/dL (40-59) 09/27/16 06:31 Cholesterol/HDL Ratio 4.89 % 09/27/16 06:31 TSH 1.310 mlU/mL (0.270-4.200) 09/30/16 13:23
[2016-10-06 06:21] LABS: Anion Gap 18 mmol/L; Blood Urea Nitrogen 13 mg/dL (7-17); Carbon Dioxide 22 mmol/L (22-30); Chloride 105.3 mmol/L (98-107); Glucose 103 mg/dL (65-100); Potassium 4.4 mmol/L (3.6-5.0); Sodium 141 mmol/L (137-145)
--- NOTE | 2016-10-06 12:15 | Progress Note ---
Assessment and Plan Assessment and plan: Acute CVA. MRI revealed acute pontine infarct. Echocardiogram revealed mild concentric left ventricular hypertrophy with an EF of 55%. Left ventricular diastolic filling abnormalities consistent with impaired relaxation. Neurology following. Continue neurochecks. Patient appears to have expressive aphasia. Encephalopathy. Etiology may be secondary to #1. Left critical internal carotid stenosis. CT scan reveals essentially 99% stenosis. Vascular surgery will wait 2-3 weeks prior to intervention in setting of acute CVA. Pt is currently at moderate cardiovascular risk for CEA. Cardiology to consider lexiscan MPI stress test for risk stratification following carotid intervention. Patient is on Plavix per vascular surgery recommendations. Syncope. Patient with syncopal episode on 09/27/16. Vascular surgery reevaluated CTA of chest and appears to have no evidence of PE as per discussion with radiologist. No anticoagulation recommended at this time Accelerated hypertension. Better control. Continue current medications. DVT prophylaxis. Continue Lovenox. Disposition: Pending acute rehabilitation placement. History Interval history: Patient was seen and evaluated, patient doesn't have any new complaints. Hospitalist Physical - Physical exam Narrative exam: Not in cardiopulmonary distress. The patient appeared well nourished and normally developed. Vital signs as documented. Head exam is unremarkable. No scleral icterus . Neck is without jugular venous distension, thyromegaly, or carotid bruits. Lungs are clear to auscultation. Cardiac exam reveals regular rate and Rhythm. Abdominal exam reveals normal bowel sounds, no masses. Extremities are nonedematous and both femoral and pedal pulses are normal. 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 - Constitutional Vitals: Temp Pulse Resp BP Pulse Ox 98.4 F 56 L 20 171/76 98 10/06/16 11:46 10/06/16 11:46 10/06/16 11:46 10/06/16 11:46 10/06/16 11:46 General appearance: Present: no acute distress Results - Labs CBC & Chem 7: 10/03/16 05:53 10/06/16 05:14 Labs: Laboratory Last Values WBC 5.3 K/mm3 (4.5-11.0) 10/03/16 05:53 RBC 4.47 M/mm3 (3.65-5.03) 10/03/16 05:53 Hgb 12.1 gm/dl (10.1-14.3) 10/03/16 05:53 Hct 37.0 % (30.3-42.9) 10/03/16 05:53 MCV 83 fl (79-97) 10/03/16 05:53 MCH 27 pg (28-32) L 10/03/16 05:53 MCHC 33 % (30-34) 10/03/16 05:53 RDW 14.6 % (13.2-15.2) 10/03/16 05:53 Plt Count 181 K/mm3 (140-440) 10/03/16 05:53 Lymph % (Auto) 38.3 % (13.4-35.0) H 10/03/16 05:53 [place] % (Auto) 9.8 % (0.0-7.3) H 10/03/16 05:53 Eos % (Auto) 3.0 % (0.0-4.3) 10/03/16 05:53 Baso % (Auto) 0.7 % (0.0-1.8) 10/03/16 05:53 Lymph # 2.0 K/mm3 (1.2-5.4) 10/03/16 05:53 [place] # 0.5 K/mm3 (0.0-0.8) 10/03/16 05:53 Eos # 0.2 K/mm3 (0.0-0.4) 10/03/16 05:53 Baso # 0.0 K/mm3 (0.0-0.1) 10/03/16 05:53 Add Manual Diff Complete 09/27/16 23:09 Total Counted 100 09/27/16 23:09 Seg Neutrophils % 48.2 % (40.0-70.0) 10/03/16 05:53 Seg Neuts % (Manual) 52.0 % (40.0-70.0) 09/27/16 23:09 Band Neutrophils % 0 % 09/27/16 23:09 Lymphocytes % (Manual) 33.0 % (13.4-35.0) 09/27/16 23:09 Reactive Lymphs % (Man) 0 % 09/27/16 23:09 Monocytes % (Manual) 13.0 % (0.0-7.3) H 09/27/16 23:09 Eosinophils % (Manual) 0 % (0.0-4.3) 09/27/16 23:09 Basophils % (Manual) 0 % (0.0-1.8) 09/27/16 23:09 Metamyelocytes % 2.0 % 09/27/16 23:09 Myelocytes % 0 % 09/27/16 23:09 Promyelocytes % 0 % 09/27/16 23:09 Blast Cells % 0 % 09/27/16 23:09 Nucleated RBC % Not Reportable 09/27/16 23:09 Seg Neutrophils # 2.5 K/mm3 (1.8-7.7) 10/03/16 05:53 Seg Neutrophils # Man 5.9 K/mm3 (1.8-7.7) 09/27/16 23:09 Band Neutrophils # 0.0 K/mm3 09/27/16 23:09 Lymphocytes # (Manual) 3.8 K/mm3 (1.2-5.4) 09/27/16 23:09 Abs React Lymphs (Man) 0.0 K/mm3 09/27/16 23:09 Monocytes # (Manual) 1.5 K/mm3 (0.0-0.8) H 09/27/16 23:09 Eosinophils # (Manual) 0.0 K/mm3 (0.0-0.4) 09/27/16 23:09 Basophils # (Manual) 0.0 K/mm3 (0.0-0.1) 09/27/16 23:09 Metamyelocytes # 0.2 K/mm3 09/27/16 23:09 Myelocytes # 0.0 K/mm3 09/27/16 23:09 Promyelocytes # 0.0 K/mm3 09/27/16 23:09 Blast Cells # 0.0 K/mm3 09/27/16 23:09 WBC Morphology Not Reportable 09/27/16 23:09 Hypersegmented Neuts Not Reportable 09/27/16 23:09 Hyposegmented Neuts Not Reportable 09/27/16 23:09 Hypogranular Neuts Not Reportable 09/27/16 23:09 Smudge Cells Not Reportable 09/27/16 23:09 Toxic Granulation Not Reportable 09/27/16 23:09 Toxic Vacuolation Not Reportable 09/27/16 23:09 Dohle Bodies Not Reportable 09/27/16 23:09 Pelger-Huet Anomaly Not Reportable 09/27/16 23:09 Toby Rods Not Reportable 09/27/16 23:09 Platelet Estimate Appears normal 09/27/16 23:09 Clumped Platelets Not Reportable 09/27/16 23:09 Plt Clumps, EDTA Not Reportable 09/27/16 23:09 Large Platelets Not Reportable 09/27/16 23:09 Giant Platelets Few 09/27/16 23:09 Platelet Satelliting Not Reportable 09/27/16 23:09 Plt Morphology Comment Not Reportable 09/27/16 23:09 RBC Morphology Not Reportable 09/27/16 23:09 Dimorphic RBCs Not Reportable 09/27/16 23:09 Polychromasia Not Reportable 09/27/16 23:09 Hypochromasia 1+ 09/27/16 23:09 Poikilocytosis Not Reportable 09/27/16 23:09 Anisocytosis 1+ 09/27/16 23:09 Microcytosis Not Reportable 09/27/16 23:09 Macrocytosis Not Reportable 09/27/16 23:09 Spherocytes Not Reportable 09/27/16 23:09 Pappenheimer Bodies Not Reportable 09/27/16 23:09 Sickle Cells Not Reportable 09/27/16 23:09 Target Cells Not Reportable 09/27/16 23:09 Tear Drop Cells Not Reportable 09/27/16 23:09 Ovalocytes Not Reportable 09/27/16 23:09 Helmet Cells Not Reportable 09/27/16 23:09 [place] Bodies Not Reportable 09/27/16 23:09 [place] Rings Not Reportable 09/27/16 23:09 [place] Cells Not Reportable 09/27/16 23:09 Bite Cells Not Reportable 09/27/16 23:09 Crenated Cell Not Reportable 09/27/16 23:09 Elliptocytes Not Reportable 09/27/16 23:09 Acanthocytes (Spur) Not Reportable 09/27/16 23:09 Rouleaux Not Reportable 09/27/16 23:09 Hemoglobin C Crystals Not Reportable 09/27/16 23:09 Schistocytes Not Reportable 09/27/16 23:09 Malaria parasites Not Reportable 09/27/16 23:09 Ganga Bodies Not Reportable 09/27/16 23:09 Hem Pathologist Commnt No 09/27/16 23:09 PT 13.1 Sec. (12.2-14.9) 09/25/16 20:32 INR 0.95 (0.87-1.13) 09/25/16 20:32 APTT 30.6 Sec. (24.2-36.6) 09/25/16 20:32 POC ABG pH 7.422 (7.35-7.45) 09/27/16 23:13 POC ABG pCO2 32.8 (35-45) L 09/27/16 23:13 POC ABG pO2 58 (80-105) L 09/27/16 23:13 POC ABG HCO3 21.4 09/27/16 23:13 POC ABG Total CO2 22 09/27/16 23:13 POC ABG O2 Sat 90 09/27/16 23:13 POC ABG Base Excess -3 09/27/16 23:13 FiO2 21 % 09/27/16 23:13 Sodium 141 mmol/L (137-145) 10/06/16 05:14 Potassium 4.4 mmol/L (3.6-5.0) 10/06/16 05:14 Chloride 105.3 mmol/L (98-107) 10/06/16 05:14 Carbon Dioxide 22 mmol/L (22-30) 10/06/16 05:14 Anion Gap 18 mmol/L 10/06/16 05:14 BUN 13 mg/dL (7-17) 10/06/16 05:14 Creatinine 1.0 mg/dL (0.7-1.2) 10/06/16 05:14 Estimated GFR > 60 ml/min 10/06/16 05:14 BUN/Creatinine Ratio 13.00 % 10/06/16 05:14 Glucose 103 mg/dL (65-100) H 10/06/16 05:14 POC Glucose 102 (70-105) 09/30/16 08:03 Calcium 9.0 mg/dL (8.4-10.2) 10/06/16 05:14 Ammonia 41.0 umol/L (25-60) 10/01/16 05:36 Total Creatine Kinase 674 units/L (30-135) H 09/28/16 06:04 CK-MB (CK-2) 5.9 ng/mL (0.0-4.0) H 09/28/16 06:04 CK-MB (CK-2) Rel Index 0.8 (0-4) 09/28/16 06:04 Troponin T 0.098 ng/mL (0.00-0.029) H 09/28/16 06:04 Triglycerides 115 mg/dL (2-149) 09/27/16 06:31 Cholesterol 284 mg/dL (50-199) H 09/27/16 06:31 LDL Cholesterol Direct 203 mg/dL (50-130) H 09/27/16 06:31 HDL Cholesterol 58 mg/dL (40-59) 09/27/16 06:31 Cholesterol/HDL Ratio 4.89 % 09/27/16 06:31 TSH 1.310 mlU/mL (0.270-4.200) 09/30/16 13:23
[2016-10-06] MEDS: PLAVIX PO SCH (12:40)
[2016-10-06] MEDS: LOVENOX SUB-Q SCH (12:40)
[2016-10-06] MEDS: ASPIRIN PO SCH (12:40)
[2016-10-06] MEDS: NORVASC PO SCH (12:51)
[2016-10-06] MEDS: ZESTRIL PO SCH (12:52)
[2016-10-06] MEDS: NORMODYNE PO SCH ×2 (15:50→21:03)
[2016-10-07] MEDS: LOVENOX SUB-Q SCH (10:11)
[2016-10-07] MEDS: NORMODYNE PO SCH ×2 (10:11→21:45)
[2016-10-07] MEDS: ZESTRIL PO SCH (10:11)
[2016-10-07] MEDS: PLAVIX PO SCH (10:11)
[2016-10-07] MEDS: NORVASC PO SCH (10:11)
[2016-10-07] MEDS: ASPIRIN PO SCH (10:11)
--- NOTE | 2016-10-07 10:46 | Progress Note ---
Assessment and Plan Assessment and plan: Acute CVA. MRI revealed acute pontine infarct. Echocardiogram revealed mild concentric left ventricular hypertrophy with an EF of 55%. Left ventricular diastolic filling abnormalities consistent with impaired relaxation. Neurology following. Continue neurochecks. Patient appears to have expressive aphasia. Encephalopathy. Etiology may be secondary to stroke Left critical internal carotid stenosis. CT scan reveals essentially 99% stenosis. Vascular surgery will wait 2-3 weeks prior to intervention in setting of acute CVA. Pt is currently at moderate cardiovascular risk for CEA. Cardiology to consider lexiscan MPI stress test for risk stratification following carotid intervention. Patient is on Plavix per vascular surgery recommendations. Syncope. Patient with syncopal episode on 09/27/16. Vascular surgery reevaluated CTA of chest and appears to have no evidence of PE as per discussion with radiologist. No anticoagulation recommended at this time Accelerated hypertension. Better control. Continue current medications. DVT prophylaxis. Continue Lovenox. Disposition: She is medically stable for discharge. Awaiting placement to Rehab facility. History Interval history: No new complaints Hospitalist Physical - Physical exam Narrative exam: Gen appearance :Not in acute distress, obese HEENT: Normocephalic, atraumatic Neck: Supple, no JVD Lungs: Clear to auscultation bilaterally, no crackles, or wheezes. Heart: S1 and S2 regular, no murmurs, no gallops, rub Abdomen : Soft, nontender, non-distended, normal bowel sounds Extremities :No edema, no clubbing or cyanosis Neuro: Awake,alert - Constitutional Vitals: Temp Pulse Resp BP Pulse Ox 98.0 F 55 L 20 147/76 100 10/07/16 07:40 10/07/16 08:00 10/07/16 07:40 10/07/16 07:40 10/07/16 07:40 General appearance: Present: no acute distress Results - Labs CBC & Chem 7: 10/03/16 05:53 10/06/16 05:14 Labs: Laboratory Last Values WBC 5.3 K/mm3 (4.5-11.0) 10/03/16 05:53 RBC 4.47 M/mm3 (3.65-5.03) 10/03/16 05:53 Hgb 12.1 gm/dl (10.1-14.3) 10/03/16 05:53 Hct 37.0 % (30.3-42.9) 10/03/16 05:53 MCV 83 fl (79-97) 10/03/16 05:53 MCH 27 pg (28-32) L 10/03/16 05:53 MCHC 33 % (30-34) 10/03/16 05:53 RDW 14.6 % (13.2-15.2) 10/03/16 05:53 Plt Count 181 K/mm3 (140-440) 10/03/16 05:53 Lymph % (Auto) 38.3 % (13.4-35.0) H 10/03/16 05:53 [place] % (Auto) 9.8 % (0.0-7.3) H 10/03/16 05:53 Eos % (Auto) 3.0 % (0.0-4.3) 10/03/16 05:53 Baso % (Auto) 0.7 % (0.0-1.8) 10/03/16 05:53 Lymph # 2.0 K/mm3 (1.2-5.4) 10/03/16 05:53 [place] # 0.5 K/mm3 (0.0-0.8) 10/03/16 05:53 Eos # 0.2 K/mm3 (0.0-0.4) 10/03/16 05:53 Baso # 0.0 K/mm3 (0.0-0.1) 10/03/16 05:53 Add Manual Diff Complete 09/27/16 23:09 Total Counted 100 09/27/16 23:09 Seg Neutrophils % 48.2 % (40.0-70.0) 10/03/16 05:53 Seg Neuts % (Manual) 52.0 % (40.0-70.0) 09/27/16 23:09 Band Neutrophils % 0 % 09/27/16 23:09 Lymphocytes % (Manual) 33.0 % (13.4-35.0) 09/27/16 23:09 Reactive Lymphs % (Man) 0 % 09/27/16 23:09 Monocytes % (Manual) 13.0 % (0.0-7.3) H 09/27/16 23:09 Eosinophils % (Manual) 0 % (0.0-4.3) 09/27/16 23:09 Basophils % (Manual) 0 % (0.0-1.8) 09/27/16 23:09 Metamyelocytes % 2.0 % 09/27/16 23:09 Myelocytes % 0 % 09/27/16 23:09 Promyelocytes % 0 % 09/27/16 23:09 Blast Cells % 0 % 09/27/16 23:09 Nucleated RBC % Not Reportable 09/27/16 23:09 Seg Neutrophils # 2.5 K/mm3 (1.8-7.7) 10/03/16 05:53 Seg Neutrophils # Man 5.9 K/mm3 (1.8-7.7) 09/27/16 23:09 Band Neutrophils # 0.0 K/mm3 09/27/16 23:09 Lymphocytes # (Manual) 3.8 K/mm3 (1.2-5.4) 09/27/16 23:09 Abs React Lymphs (Man) 0.0 K/mm3 09/27/16 23:09 Monocytes # (Manual) 1.5 K/mm3 (0.0-0.8) H 09/27/16 23:09 Eosinophils # (Manual) 0.0 K/mm3 (0.0-0.4) 09/27/16 23:09 Basophils # (Manual) 0.0 K/mm3 (0.0-0.1) 09/27/16 23:09 Metamyelocytes # 0.2 K/mm3 09/27/16 23:09 Myelocytes # 0.0 K/mm3 09/27/16 23:09 Promyelocytes # 0.0 K/mm3 09/27/16 23:09 Blast Cells # 0.0 K/mm3 09/27/16 23:09 WBC Morphology Not Reportable 09/27/16 23:09 Hypersegmented Neuts Not Reportable 09/27/16 23:09 Hyposegmented Neuts Not Reportable 09/27/16 23:09 Hypogranular Neuts Not Reportable 09/27/16 23:09 Smudge Cells Not Reportable 09/27/16 23:09 Toxic Granulation Not Reportable 09/27/16 23:09 Toxic Vacuolation Not Reportable 09/27/16 23:09 Dohle Bodies Not Reportable 09/27/16 23:09 Pelger-Huet Anomaly Not Reportable 09/27/16 23:09 Toby Rods Not Reportable 09/27/16 23:09 Platelet Estimate Appears normal 09/27/16 23:09 Clumped Platelets Not Reportable 09/27/16 23:09 Plt Clumps, EDTA Not Reportable 09/27/16 23:09 Large Platelets Not Reportable 09/27/16 23:09 Giant Platelets Few 09/27/16 23:09 Platelet Satelliting Not Reportable 09/27/16 23:09 Plt Morphology Comment Not Reportable 09/27/16 23:09 RBC Morphology Not Reportable 09/27/16 23:09 Dimorphic RBCs Not Reportable 09/27/16 23:09 Polychromasia Not Reportable 09/27/16 23:09 Hypochromasia 1+ 09/27/16 23:09 Poikilocytosis Not Reportable 09/27/16 23:09 Anisocytosis 1+ 09/27/16 23:09 Microcytosis Not Reportable 09/27/16 23:09 Macrocytosis Not Reportable 09/27/16 23:09 Spherocytes Not Reportable 09/27/16 23:09 Pappenheimer Bodies Not Reportable 09/27/16 23:09 Sickle Cells Not Reportable 09/27/16 23:09 Target Cells Not Reportable 09/27/16 23:09 Tear Drop Cells Not Reportable 09/27/16 23:09 Ovalocytes Not Reportable 09/27/16 23:09 Helmet Cells Not Reportable 09/27/16 23:09 [place] Bodies Not Reportable 09/27/16 23:09 [place] Rings Not Reportable 09/27/16 23:09 [place] Cells Not Reportable 09/27/16 23:09 Bite Cells Not Reportable 09/27/16 23:09 Crenated Cell Not Reportable 09/27/16 23:09 Elliptocytes Not Reportable 09/27/16 23:09 Acanthocytes (Spur) Not Reportable 09/27/16 23:09 Rouleaux Not Reportable 09/27/16 23:09 Hemoglobin C Crystals Not Reportable 09/27/16 23:09 Schistocytes Not Reportable 09/27/16 23:09 Malaria parasites Not Reportable 09/27/16 23:09 Ganga Bodies Not Reportable 09/27/16 23:09 Hem Pathologist Commnt No 09/27/16 23:09 PT 13.1 Sec. (12.2-14.9) 09/25/16 20:32 INR 0.95 (0.87-1.13) 09/25/16 20:32 APTT 30.6 Sec. (24.2-36.6) 09/25/16 20:32 POC ABG pH 7.422 (7.35-7.45) 09/27/16 23:13 POC ABG pCO2 32.8 (35-45) L 09/27/16 23:13 POC ABG pO2 58 (80-105) L 09/27/16 23:13 POC ABG HCO3 21.4 09/27/16 23:13 POC ABG Total CO2 22 09/27/16 23:13 POC ABG O2 Sat 90 09/27/16 23:13 POC ABG Base Excess -3 09/27/16 23:13 FiO2 21 % 09/27/16 23:13 Sodium 141 mmol/L (137-145) 10/06/16 05:14 Potassium 4.4 mmol/L (3.6-5.0) 10/06/16 05:14 Chloride 105.3 mmol/L (98-107) 10/06/16 05:14 Carbon Dioxide 22 mmol/L (22-30) 10/06/16 05:14 Anion Gap 18 mmol/L 10/06/16 05:14 BUN 13 mg/dL (7-17) 10/06/16 05:14 Creatinine 1.0 mg/dL (0.7-1.2) 10/06/16 05:14 Estimated GFR > 60 ml/min 10/06/16 05:14 BUN/Creatinine Ratio 13.00 % 10/06/16 05:14 Glucose 103 mg/dL (65-100) H 10/06/16 05:14 POC Glucose 102 (70-105) 09/30/16 08:03 Calcium 9.0 mg/dL (8.4-10.2) 10/06/16 05:14 Ammonia 41.0 umol/L (25-60) 10/01/16 05:36 Total Creatine Kinase 674 units/L (30-135) H 09/28/16 06:04 CK-MB (CK-2) 5.9 ng/mL (0.0-4.0) H 09/28/16 06:04 CK-MB (CK-2) Rel Index 0.8 (0-4) 09/28/16 06:04 Troponin T 0.098 ng/mL (0.00-0.029) H 09/28/16 06:04 Triglycerides 115 mg/dL (2-149) 09/27/16 06:31 Cholesterol 284 mg/dL (50-199) H 09/27/16 06:31 LDL Cholesterol Direct 203 mg/dL (50-130) H 09/27/16 06:31 HDL Cholesterol 58 mg/dL (40-59) 09/27/16 06:31 Cholesterol/HDL Ratio 4.89 % 09/27/16 06:31 TSH 1.310 mlU/mL (0.270-4.200) 09/30/16 13:23
--- NOTE | 2016-10-08 10:27 | Progress Note ---
Hospitalist Physical - Constitutional Vitals: Temp Pulse Resp BP Pulse Ox 97.4 F L 54 L 18 152/71 100 10/08/16 09:48 10/08/16 09:48 10/08/16 09:48 10/08/16 09:48 10/08/16 09:48 General appearance: Present: no acute distress Results - Labs CBC & Chem 7: 10/03/16 05:53 10/06/16 05:14 Labs: Laboratory Last Values WBC 5.3 K/mm3 (4.5-11.0) 10/03/16 05:53 RBC 4.47 M/mm3 (3.65-5.03) 10/03/16 05:53 Hgb 12.1 gm/dl (10.1-14.3) 10/03/16 05:53 Hct 37.0 % (30.3-42.9) 10/03/16 05:53 MCV 83 fl (79-97) 10/03/16 05:53 MCH 27 pg (28-32) L 10/03/16 05:53 MCHC 33 % (30-34) 10/03/16 05:53 RDW 14.6 % (13.2-15.2) 10/03/16 05:53 Plt Count 181 K/mm3 (140-440) 10/03/16 05:53 Lymph % (Auto) 38.3 % (13.4-35.0) H 10/03/16 05:53 [place] % (Auto) 9.8 % (0.0-7.3) H 10/03/16 05:53 Eos % (Auto) 3.0 % (0.0-4.3) 10/03/16 05:53 Baso % (Auto) 0.7 % (0.0-1.8) 10/03/16 05:53 Lymph # 2.0 K/mm3 (1.2-5.4) 10/03/16 05:53 [place] # 0.5 K/mm3 (0.0-0.8) 10/03/16 05:53 Eos # 0.2 K/mm3 (0.0-0.4) 10/03/16 05:53 Baso # 0.0 K/mm3 (0.0-0.1) 10/03/16 05:53 Add Manual Diff Complete 09/27/16 23:09 Total Counted 100 09/27/16 23:09 Seg Neutrophils % 48.2 % (40.0-70.0) 10/03/16 05:53 Seg Neuts % (Manual) 52.0 % (40.0-70.0) 09/27/16 23:09 Band Neutrophils % 0 % 09/27/16 23:09 Lymphocytes % (Manual) 33.0 % (13.4-35.0) 09/27/16 23:09 Reactive Lymphs % (Man) 0 % 09/27/16 23:09 Monocytes % (Manual) 13.0 % (0.0-7.3) H 09/27/16 23:09 Eosinophils % (Manual) 0 % (0.0-4.3) 09/27/16 23:09 Basophils % (Manual) 0 % (0.0-1.8) 09/27/16 23:09 Metamyelocytes % 2.0 % 09/27/16 23:09 Myelocytes % 0 % 09/27/16 23:09 Promyelocytes % 0 % 09/27/16 23:09 Blast Cells % 0 % 09/27/16 23:09 Nucleated RBC % Not Reportable 09/27/16 23:09 Seg Neutrophils # 2.5 K/mm3 (1.8-7.7) 10/03/16 05:53 Seg Neutrophils # Man 5.9 K/mm3 (1.8-7.7) 09/27/16 23:09 Band Neutrophils # 0.0 K/mm3 09/27/16 23:09 Lymphocytes # (Manual) 3.8 K/mm3 (1.2-5.4) 09/27/16 23:09 Abs React Lymphs (Man) 0.0 K/mm3 09/27/16 23:09 Monocytes # (Manual) 1.5 K/mm3 (0.0-0.8) H 09/27/16 23:09 Eosinophils # (Manual) 0.0 K/mm3 (0.0-0.4) 09/27/16 23:09 Basophils # (Manual) 0.0 K/mm3 (0.0-0.1) 09/27/16 23:09 Metamyelocytes # 0.2 K/mm3 09/27/16 23:09 Myelocytes # 0.0 K/mm3 09/27/16 23:09 Promyelocytes # 0.0 K/mm3 09/27/16 23:09 Blast Cells # 0.0 K/mm3 09/27/16 23:09 WBC Morphology Not Reportable 09/27/16 23:09 Hypersegmented Neuts Not Reportable 09/27/16 23:09 Hyposegmented Neuts Not Reportable 09/27/16 23:09 Hypogranular Neuts Not Reportable 09/27/16 23:09 Smudge Cells Not Reportable 09/27/16 23:09 Toxic Granulation Not Reportable 09/27/16 23:09 Toxic Vacuolation Not Reportable 09/27/16 23:09 Dohle Bodies Not Reportable 09/27/16 23:09 Pelger-Huet Anomaly Not Reportable 09/27/16 23:09 Toby Rods Not Reportable 09/27/16 23:09 Platelet Estimate Appears normal 09/27/16 23:09 Clumped Platelets Not Reportable 09/27/16 23:09 Plt Clumps, EDTA Not Reportable 09/27/16 23:09 Large Platelets Not Reportable 09/27/16 23:09 Giant Platelets Few 09/27/16 23:09 Platelet Satelliting Not Reportable 09/27/16 23:09 Plt Morphology Comment Not Reportable 09/27/16 23:09 RBC Morphology Not Reportable 09/27/16 23:09 Dimorphic RBCs Not Reportable 09/27/16 23:09 Polychromasia Not Reportable 09/27/16 23:09 Hypochromasia 1+ 09/27/16 23:09 Poikilocytosis Not Reportable 09/27/16 23:09 Anisocytosis 1+ 09/27/16 23:09 Microcytosis Not Reportable 09/27/16 23:09 Macrocytosis Not Reportable 09/27/16 23:09 Spherocytes Not Reportable 09/27/16 23:09 Pappenheimer Bodies Not Reportable 09/27/16 23:09 Sickle Cells Not Reportable 09/27/16 23:09 Target Cells Not Reportable 09/27/16 23:09 Tear Drop Cells Not Reportable 09/27/16 23:09 Ovalocytes Not Reportable 09/27/16 23:09 Helmet Cells Not Reportable 09/27/16 23:09 [place] Bodies Not Reportable 09/27/16 23:09 [place] Rings Not Reportable 09/27/16 23:09 [place] Cells Not Reportable 09/27/16 23:09 Bite Cells Not Reportable 09/27/16 23:09 Crenated Cell Not Reportable 09/27/16 23:09 Elliptocytes Not Reportable 09/27/16 23:09 Acanthocytes (Spur) Not Reportable 09/27/16 23:09 Rouleaux Not Reportable 09/27/16 23:09 Hemoglobin C Crystals Not Reportable 09/27/16 23:09 Schistocytes Not Reportable 09/27/16 23:09 Malaria parasites Not Reportable 09/27/16 23:09 Ganga Bodies Not Reportable 09/27/16 23:09 Hem Pathologist Commnt No 09/27/16 23:09 PT 13.1 Sec. (12.2-14.9) 09/25/16 20:32 INR 0.95 (0.87-1.13) 09/25/16 20:32 APTT 30.6 Sec. (24.2-36.6) 09/25/16 20:32 POC ABG pH 7.422 (7.35-7.45) 09/27/16 23:13 POC ABG pCO2 32.8 (35-45) L 09/27/16 23:13 POC ABG pO2 58 (80-105) L 09/27/16 23:13 POC ABG HCO3 21.4 09/27/16 23:13 POC ABG Total CO2 22 09/27/16 23:13 POC ABG O2 Sat 90 09/27/16 23:13 POC ABG Base Excess -3 09/27/16 23:13 FiO2 21 % 09/27/16 23:13 Sodium 141 mmol/L (137-145) 10/06/16 05:14 Potassium 4.4 mmol/L (3.6-5.0) 10/06/16 05:14 Chloride 105.3 mmol/L (98-107) 10/06/16 05:14 Carbon Dioxide 22 mmol/L (22-30) 10/06/16 05:14 Anion Gap 18 mmol/L 10/06/16 05:14 BUN 13 mg/dL (7-17) 10/06/16 05:14 Creatinine 1.0 mg/dL (0.7-1.2) 10/06/16 05:14 Estimated GFR > 60 ml/min 10/06/16 05:14 BUN/Creatinine Ratio 13.00 % 10/06/16 05:14 Glucose 103 mg/dL (65-100) H 10/06/16 05:14 POC Glucose 102 (70-105) 09/30/16 08:03 Calcium 9.0 mg/dL (8.4-10.2) 10/06/16 05:14 Ammonia 41.0 umol/L (25-60) 10/01/16 05:36 Total Creatine Kinase 674 units/L (30-135) H 09/28/16 06:04 CK-MB (CK-2) 5.9 ng/mL (0.0-4.0) H 09/28/16 06:04 CK-MB (CK-2) Rel Index 0.8 (0-4) 09/28/16 06:04 Troponin T 0.098 ng/mL (0.00-0.029) H 09/28/16 06:04 Triglycerides 115 mg/dL (2-149) 09/27/16 06:31 Cholesterol 284 mg/dL (50-199) H 09/27/16 06:31 LDL Cholesterol Direct 203 mg/dL (50-130) H 09/27/16 06:31 HDL Cholesterol 58 mg/dL (40-59) 09/27/16 06:31 Cholesterol/HDL Ratio 4.89 % 09/27/16 06:31 TSH 1.310 mlU/mL (0.270-4.200) 09/30/16 13:23
[2016-10-08] MEDS: ASPIRIN PO SCH (10:53)
[2016-10-08] MEDS: PLAVIX PO SCH (10:53)
[2016-10-08] MEDS: LOVENOX SUB-Q SCH (10:53)
[2016-10-08] MEDS: NORMODYNE PO SCH (10:55)
[2016-10-08] MEDS: NORVASC PO SCH (10:56)
[2016-10-08] MEDS: ZESTRIL PO SCH (10:56)
[2016-10-08 11:50] VITALS: BP 167/86
--- NOTE | 2016-10-08 12:24 | Discharge Summary ---
Providers - Providers Date of Admission: 09/26/16 01:56 Date of discharge: 10/08/16 Attending physician: NICKOLAS LAWTON 09/26/16 20:23 Consult to Physician [CONS] Routine Consulting Provider: ANEESH STACY Reason For Exam: Carotid blockage Place consult to:: Vascular Notified:: Jayy Avelar Was contact made?: Yes If yes, spoke with:: Dr Hope Comment:: Person Contact 10/02/16 11:23 Speech Therapy Evaluation and Treat [CONS] Routine Reason For Exam: CVA 10/02/16 14:02 Speech Therapy Evaluation and Treat [CONS] Urgent Reason For Exam: swallow and expressive aphasia 10/02/16 14:05 Physical Therapy Evaluation and Treat [CONS] Urgent Comment: Reason For Exam: cva with left sided weakness Referring MD: ABBE FERNANDEZ Primary care physician: ANSLEY TSAI Hospitalization Condition: Fair Hospital course: Patient is 71 yo presented with headache, unsteady gait. She was also found to have left sided weakness. CT head was unremarkable. She was presumed to have acute ischemic stroke. She was given Aspirin and admitted. MRI confirmed acute ischemic stroke on right alessandro. PT/OT eval was done and subacute rehab was recommended. Patient had a prolonged stay waiting for arrangements to be finalized. She improved slowly while waiting and on re-evaluation it was decided patient was stable to be discharged home. She was therefore discharged home with home health on 10/08/16 on Aspirin and Plavix. She had carotid artery stenosis and is to follow up with Vascular surgeon Total time spent on discharge, 34 mins Disposition: [id number] HOME UNDER HOME HLTH - Discharge Diagnoses (1) Acute ischemic stroke Status: Acute (2) Hyperlipidemia Status: Chronic Qualifiers: Hyperlipidemia type: H (3) Hypertension Status: Chronic Qualifiers: Hypertension type: essential hypertension Qualified Code(s): I10 - Essential (primary) hypertension (4) Left carotid artery stenosis Status: Acute Core Measure Documentation - Palliative Care Palliative Care/ Comfort Measures: Not Applicable - Core Measures Any of the following diagnoses?: stroke - Stroke Discharge Requirements Statin for LDL = or >70 mg/dl on DC: Yes Anticoag for atrial fib/atrial flutter: Not Applicable Antithrombotic for ischemic stroke: Yes Exam - Physical Exam Narrative exam: Gen appearance :Not in acute distress, obese HEENT: Normocephalic, atraumatic Neck: Supple, no JVD Lungs: Clear to auscultation bilaterally, no crackles, or wheezes. Heart: S1 and S2 regular, no murmurs, no gallops, rub Abdomen : Soft, nontender, non-distended, normal bowel sounds Extremities :No edema, no clubbing or cyanosis Neuro: Awake,alert - Constitutional Vitals: Temp Pulse Resp BP Pulse Ox 98.6 F 67 16 167/86 100 10/08/16 11:50 10/08/16 11:50 10/08/16 11:50 10/08/16 11:50 10/08/16 11:50 - EENT Eyes: Present: exopthalmos Plan Activity: advance as tolerated Diet: low fat, low cholesterol, low salt Special Instructions: physical therapy (home) Durable Medical Equipment Needed Upon Discharge: Walker-Rolling Additional Instructions: 1.Follow up with PCP in 1 week. 2.Follow up with Dr. Tinajero, Vasc Surg in 1 week to schedule carotid artery surgery. 3.Home health Nurse and home Physical Therapy. Follow up with: PRIMARY CARE, [Referring] - 3-5 Days Prescriptions: amLODIPine [Norvasc] 10 mg PO QDAY #30 tablet Aspirin [Aspirin TAB] 325 mg PO QDAY #30 tablet AtorvaSTATin [Lipitor] 40 mg PO QHS #30 tablet Clopidogrel [Plavix] 75 mg PO QDAY #30 tablet Labetalol [Normodyne TAB] 200 mg PO BID #60 tablet
== END 2016-10-08 15:03 | disposition home health service (06) | DRG 64 ==
LOC: ED 19:52 → 4A 09-26 01:56
PROVIDERS: ADMIT Internal Medicine; ATTEND Internal Medicine
DX: I63.9 Cerebral infarction, unspecified (principal); I26.99 Other pulmonary embolism without acute cor pulmonale; G93.40 Encephalopathy, unspecified; I07.1 Rheumatic tricuspid insufficiency; I65.22 Occlusion and stenosis of left carotid artery; I10 Essential (primary) hypertension; R00.1 Bradycardia, unspecified; Z82.49 Family history of ischemic heart disease and other diseases of the circulatory system; Z90.710 Acquired absence of both cervix and uterus
CPT/HCPCS: 36415; 70450; 70498; 70551; 71010; 71275; 74230; 80048; 80061; 82140; 82550; 82553; 82803; 82962; 84443; 84484; 85007; 85025; 85610; 85730; 93005; 93010; 93306; 93308; 93321; 93325; 93880; 93970; 95819; 96361; 96374; A9270-GY; G8978-GP; G8979-GP; G8980-GP; G8987-GO; G8988-GO; G8989-GO; G9159-GN; G9160-GN; J0360; J1650; J2405; J7030; J7040; Q9967